=== PATIENT | male | born 1965 | race Caucasian/White ===

== ENCOUNTER 2021-06-05 17:34 | Inpatient (IN) ==
--- NOTE | 2021-06-05 17:37 | Emergency Department Note ---
HPI General Chief complaint: Cold/Flu Symptoms Stated complaint: fever, runny nose Time Seen by Provider: 06/05/21 17:37 Source: patient Mode of arrival: EMS Limitations: no limitations History of Present Illness HPI Narrative: 56-year-old male with past medical history of bilateral Charcot foot presenting with low-grade fever for the last 10 days. Patient also endorses rhinorrhea, mild shortness of breath, and diarrhea. Patient is concerned for infection in his foot. He follows with Dr. Yu of podiatry but has not been seen recently for his follow-up appointments. Not currently on antibiotics. Denies cough, chest pain, abdominal pain, vomiting, or headache. Patient states he has been trying to do dressing changes on his feet but feels like they are getting worse. He denies history of diabetes. Related Data Home Medications Medication Instructions Recorded Confirmed losartan 100 mg tablet 100 mg PO 1600 04/03/18 06/05/21 lorazepam 1 mg tablet 2 mg PO DAILY 07/23/18 06/05/21 bisoprolol-hydrochlorothiazide 1 tab PO BID 06/05/21 06/05/21 Allergies Allergy/AdvReac Type Severity Reaction Status Date / Time No Known Drug Allergies Allergy Verified 06/05/21 17:38 Review of Systems ROS ROS Narrative: Narrative: Constitutional: Reports fever and chills ENT ED: Denies throat pain Cardiovascular: Denies chest pain Respiratory: Denies shortness of breath or cough Gastrointestinal: Reports diarrhea; Denies abdominal pain, nausea, vomiting or melena Genitourinary: Denies dysuria or frequency Musculoskeletal: Denies back pain Integumentary: Denies rash Neurological: Denies headache, weakness or numbness Psychiatric: Denies anxiety Endocrine: Denies fatigue Hematological/Lymphatic: Denies easy bleeding PFSH Narrative Patient History Narrative: Narrative: Medical/Surgical/Family History All Active Problems (Updated 06/05/21 @ 21:01 by Chris Russell MD) Blister of left great toe (Acute) Cellulitis (Acute) Foot ulcer (Acute) Low back strain (Acute) Cellulitis of foot, left (Acute) Medical History (Updated 06/05/21 @ 21:01 by Chris Russell MD) Blister of left great toe Social History Smoking Status: Former smoker Alcohol Intake Frequency: a few times a week Substance Use: marijuana Exam Narrative Narrative: Narrative: General Limitations: no limitations General appearance: Present alert and in no apparent distress Head Head: Present atraumatic and normocephalic Eye Eye: Present normal appearance, PERRL and EOMI; Absent scleral icterus or conjunctival injection ENT ENT: Present mucous membranes moist Neck Neck: Present normal inspection, full ROM and trachea midline Chest Chest: Present symmetric chest wall rise Respiratory Respiratory: Present normal lung sounds bilaterally; Absent respiratory distress, wheezes, stridor, accessory muscle use or prolonged expiratory phase Cardiovascular Cardiovascular: Present regular rate and normal rhythm; Absent systolic murmur or diastolic murmur Adbominal Abdominal: Present soft; Absent distention, tenderness, guarding, rebound or rigidity Expanded Lower Extremity Foot/toe: Present other (Left foot with a large ulcer on the medial foot with purulence, drainage, and surrounding cellulitis. Wound is foul-smelling. He does have range of motion of the foot. Patient endorses decreased sensation in the foot but has a 1+ DP pulse and normal cap refill); Absent normal inspection (Right foot with a dorsal ulcer with mild purulent drainage but no surrounding cellulitis. Neurovascularly intact.) Neurological Neurological: Present alert and oriented X3 Psychiatric Psychiatric: Present normal affect and normal mood Skin Skin: Present warm (WNL) and dry Course Consultations Consultation #1: Dr. Donald, hospitalist Time: 20:00 Consultation #2: Dr. Yu, podiatry. Unable to reach and he did not call back Time: 20:30 Vital Signs Vital signs: Vital Signs Temperature 99 F 06/05/21 17:35 Pulse Rate 105 H 06/05/21 17:35 Respiratory Rate 22 06/05/21 17:35 Blood Pressure 139/93 06/05/21 17:35 Pulse Oximetry (%) 95 06/05/21 17:35 Temperature 99.6 F H 06/05/21 23:05 Pulse Rate 75 06/05/21 23:05 Respiratory Rate 20 06/05/21 23:05 Blood Pressure 118/105 06/05/21 23:05 Pulse Oximetry (%) 97 06/05/21 23:05 MDM MDM Narrative Medical decision making narrative: 56-year-old male presenting with fever and concern for foot infection. His left foot appears acutely infected with foul-smelling drainage and surrounding cellulitis. His right foot appears to have a chronic infection but is not as concerning as his left foot. Vital signs are stable. Given these findings, will obtain labs including lactate and blood cultures, x-rays, and consult his sheet rock taper helper. Labs notable for hyponatremia to 118. Normal saline bolus ordered. Lactate is normal. X-rays do not show any significant evidence of osteomyelitis, per my interpretation. IV vancomycin ordered. Patient endorsed to Dr. Donald who will admit. Attempted to reach patient's sheet rock taper helper, Dr. Yu, but we were unable to reach him from the ED. Lab Data Lab results reviewed: Yes I reviewed the patient's lab results. Result diagrams: 06/05/21 18:15 06/05/21 18:15 Labs: Lab Results 06/05/21 06/05/21 06/05/21 Range/Units 18:15 18:15 18:15 WBC 11.5 H (4.5-11.0) K/mcL RBC 4.15 L (4.63-6.08) M/mcL Hgb 13.4 L (13.7-17.5) g/dL Hct 37.6 L (40.1-51.0) % MCV 90.6 (80.0-100.0) fL MCH 32.3 (26.0-34.0) pg MCHC 35.6 (31.0-36.0) g/dL RDW 11.9 (11.5-14.5) % Plt Count 313 (140-440) K/mcL MPV 9.8 (7.4-10.4) fL Neut % (Auto) 80.9 H (38.0-78.0) % Lymph % (Auto) 5.8 L (15.5-49.0) % [place] % (Auto) 12.7 H (1.0-12.0) % Eos % (Auto) 0.3 (0.0-7.0) % Baso % (Auto) 0.3 (0.0-2.0) % Lymph # (Auto) 0.67 L (1.50-4.80) K/mcL [place] # (Auto) 1.46 H (0.10-0.90) K/mcL Eos # (Auto) 0.04 (0.00-0.70) K/mcL Baso # (Auto) 0.03 (0.00-0.30) K/mcL Absolute Neutrophils 9.30 H (1.80-8.00) K/mcL ESR 91 H (0-20) mm/hr VBG Lactic Acid 1.7 (0.5-2.0) mmol/L Sodium 118 L* (133-145) mmol/L Potassium 3.2 L (3.3-5.1) mmol/L Chloride 84 L (96-108) mmol/L Carbon Dioxide 18 L (22-30) mmol/L Anion Gap 16.0 (8.0-16.0) BUN 25 H (6-20) mg/dL Creatinine 1.2 (0.7-1.2) mg/dL GFR Calculation 68 Glucose 117 H (70-105) mg/dL Osmolality (280-300) mOSM/kg Uric Acid (2.5-8.0) mg/dL Calcium 8.5 L (8.6-10.4) mg/dL Total Bilirubin 1.2 H (0.1-1.0) mg/dL AST 37 (<40) U/L ALT 23 (<40) U/L Alkaline Phosphatase 144 H (39-117) U/L C-Reactive Protein 21.40 H (0.03-0.80) mg/dL Total Protein 7.6 (5.9-8.4) gm/dL Albumin 3.1 L (3.2-5.2) gm/dL Globulin 4.5 H (2.2-3.7) gm/dL Albumin/Globulin Ratio 0.7 L (1.0-2.3) Urine Osmolality (80-1000) mOSM/kg Ur Random Sodium mmol/L 06/05/21 06/05/21 06/05/21 Range/Units 19:15 20:30 20:30 WBC (4.5-11.0) K/mcL RBC (4.63-6.08) M/mcL Hgb (13.7-17.5) g/dL Hct (40.1-51.0) % MCV (80.0-100.0) fL MCH (26.0-34.0) pg MCHC (31.0-36.0) g/dL RDW (11.5-14.5) % Plt Count (140-440) K/mcL MPV (7.4-10.4) fL Neut % (Auto) (38.0-78.0) % Lymph % (Auto) (15.5-49.0) % Mohave % (Auto) (1.0-12.0) % Eos % (Auto) (0.0-7.0) % Baso % (Auto) (0.0-2.0) % Lymph # (Auto) (1.50-4.80) K/mcL Moh[place] # (Auto) (0.10-0.90) K/mcL Eos # (Auto) (0.00-0.70) K/mcL Baso # (Auto) (0.00-0.30) K/mcL Absolute Neutrophils (1.80-8.00) K/mcL ESR (0-20) mm/hr VBG Lactic Acid (0.5-2.0) mmol/L Sodium (133-145) mmol/L Potassium (3.3-5.1) mmol/L Chloride (96-108) mmol/L Carbon Dioxide (22-30) mmol/L Anion Gap (8.0-16.0) BUN (6-20) mg/dL Creatinine (0.7-1.2) mg/dL GFR Calculation Glucose (70-105) mg/dL Osmolality 268 L (280-300) mOSM/kg Uric Acid 5.9 (2.5-8.0) mg/dL Calcium (8.6-10.4) mg/dL Total Bilirubin (0.1-1.0) mg/dL AST (<40) U/L ALT (<40) U/L Alkaline Phosphatase (39-117) U/L C-Reactive Protein (0.03-0.80) mg/dL Total Protein (5.9-8.4) gm/dL Albumin (3.2-5.2) gm/dL Globulin (2.2-3.7) gm/dL Albumin/Globulin Ratio (1.0-2.3) Urine Osmolality 333 (80-1000) mOSM/kg Ur Random Sodium 10 mmol/L ED POC Tests ED POC Tests: ROMEO - Influenza A Negative ROMEO - Influenza B Negative ROMEO - SARS Antigen Negative Radiology Data Radiology results reviewed: Yes I reviewed the patient's radiology results. Radiology results narrative: XR bilateral feet: No significant areas of osteomyelitis noted, per my interpretation. Discharge Plan Patient/Caregiver Discharge Instructions Pt seen by BUSINESS INFO CONSULTANT/PA only: No Clinical Impression: Cellulitis of foot, left Patient Disposition: Xfer As Inpt ([facility]) Discharge Date/Time: 06/05/21 21:23
[2021-06-05 19:44] LABS: Basophils # (Auto) 0.03 K/mcL (0.00-0.30); Basophils % (Auto) 0.3 % (0.0-2.0); Eosinophils # (Auto) 0.04 K/mcL (0.00-0.70); Eosinophils % (Auto) 0.3 % (0.0-7.0); Hematocrit 37.6 % (40.1-51.0); Hemoglobin 13.4 g/dL (13.7-17.5); Lymphocytes # (Auto) 0.67 K/mcL (1.50-4.80); Lymphocytes % (Auto) 5.8 % (15.5-49.0); Mean Cell Volume 90.6 fL (80.0-100.0); Mean Corpuscular HGB Conc 35.6 g/dL (31.0-36.0); Mean Platelet Volume 9.8 fL (7.4-10.4); Monocytes # (Auto) 1.46 K/mcL (0.10-0.90); Monocytes % (Auto) 12.7 % (1.0-12.0); Neutrophils % (Auto) 80.9 % (38.0-78.0); Platelet Count 313 K/mcL (140-440); RBC 4.15 M/mcL (4.63-6.08); Red Cell Distribution Width 11.9 % (11.5-14.5); WBC 11.5 K/mcL (4.5-11.0)
[2021-06-05 19:48] LABS: ALT/SGPT 23 U/L (<40); AST/SGOT 37 U/L (<40); Albumin 3.1 gm/dL (3.2-5.2); Albumin/Globulin Ratio 0.7 (1.0-2.3); Alkaline Phosphatase 144 U/L (39-117); Bilirubin,Total 1.2 mg/dL (0.1-1.0); Blood Urea Nitrogen 25 mg/dL (6-20); Calcium 8.5 mg/dL (8.6-10.4); Carbon Dioxide 18 mmol/L (22-30); Chloride 84 mmol/L (96-108); Globulin 4.5 gm/dL (2.2-3.7); Glomerular Filtration Rate 68; Glucose 117 mg/dL (70-105)
[2021-06-05] MEDS ORDERED: DICYCLOMINE 20 MG TABLET PO ONE (19:56)
[2021-06-05] MEDS ORDERED: 0.9 % SODIUM CHLORIDE 1,000 ML IV ONE (20:08)
[2021-06-05] MEDS ORDERED: VANCOMYCIN 1,500 MG in 0.9 % SODIUM CHLORIDE 500 ML IV ONE (20:09)
--- NOTE | 2021-06-05 20:27 | Internal Med History&Physical ---
HPI History of Present Illness Patient information: Note initiated : 06/05/21 at 8:23 pm Service Date, if different from initiated Date: [] Patient: Naga Simeon 56 y/o M admitted on for fever, runny nose. Chief Complaint: [] History of present illness: Mr. Simeon is a 56 year old M Presents to ED with 10-day history of fevers as well as a mild occasional cough, minimal shortness of breath and diarrhea that started today. Patient feels lik e he is developing a worsening infection of his left foot after one of his friends looked at his foot today and thought it was getting worse. He has seen Dr. Yu for this outpatient. Work-up in the ED included labs showed a mild leukocytosis. He had hyponatremia of 118 and is on hydrochlorothiazide. But pt also drinks about a gallon of H2o a day, of note he is 100kg. Potassium little low acute kidney injury noted. Lactate okay. Left foot x-ray done. ESR pending. Exam in the ED of the foot malodorous. Dr. Yu will be consulted from ED. Review of Systems: Pertinent positives as above. Denies headache/nausea/vomiting/chest or abdominal pain/cough. Remaining 10 point review of system reviewed negative PFSH PFSH All Active Problems Blister of left great toe (Acute) Cellulitis (Acute) Foot ulcer (Acute) Low back strain (Acute) Medical History Blister of left great toe Social History (Updated 04/01/18 @ 09:27 by ANKUR Hernandes) alcohol intake frequency: a few times a week substance use type: marijuana MEDS/ALLERGIES Home Medications and Allergies Home Medications Medication Instructions Recorded Confirmed Type losartan 100 mg tablet 150 tab PO QDAY 04/03/18 01/14/21 History lorazepam 1 mg tablet 1 mg PO PRN PRN 07/23/18 01/14/21 History bisoprolol-hydrochlorothiazide 1 tab PO BID 06/05/21 06/05/21 History Allergies Allergy/AdvReac Type Severity Reaction Status Date / Time No Known Drug Allergies Allergy Verified 06/05/21 17:38 EXAM Constitutional Vitals: Temp Pulse Resp BP Pulse Ox 99 F 86 22 126/84 97 06/05/21 17:35 06/05/21 20:01 06/05/21 17:35 06/05/21 20:01 06/05/21 20:01 Exam: General: Alert, Awake, No acute Distress Eyes/N/T: EOMI, PERRL, dry MM Head/Neck: neck supple, normocephalic atraumatic CV: RRR, 1/6 SM, normal s1/s2 Pulm: Clear b/l, no wheezing/rhonchi/rales Abd: soft, nontender, +BS x4 Ext: no clubbing/cyanosis/edema, b/l feet with severe charcot deformities and b/l ulcerations with left foot ulcer appearing infected. Neuro: Alert, no focal deficits, moves all extremities, CN 2-12 grossly intact, symmetrical strength b/l upper/lower, sensations intact b/l upper/lower Skin: warm/dry DATA Data Completed and Pending Labs: Labs from last 24 hours 06/05/21 06/05/21 06/05/21 18:15 18:15 18:15 WBC 11.5 H RBC 4.15 L Hgb 13.4 L Hct 37.6 L MCV 90.6 MCH 32.3 MCHC 35.6 RDW 11.9 Plt Count 313 MPV 9.8 Neut % (Auto) 80.9 H Lymph % (Auto) 5.8 L Spink % (Auto) 12.7 H Eos % (Auto) 0.3 Baso % (Auto) 0.3 Lymph # (Auto) 0.67 L Spink # (Auto) 1.46 H Eos # (Auto) 0.04 Baso # (Auto) 0.03 Absolute Neutrophils 9.30 H ESR Pending VBG Lactic Acid 1.7 Sodium 118 L* Potassium 3.2 L Chloride 84 L Carbon Dioxide 18 L Anion Gap 16.0 BUN 25 H Creatinine 1.2 GFR Calculation 68 Glucose 117 H Calcium 8.5 L Total Bilirubin 1.2 H AST 37 ALT 23 Alkaline Phosphatase 144 H C-Reactive Protein 21.40 H Total Protein 7.6 Albumin 3.1 L Globulin 4.5 H Albumin/Globulin Ratio 0.7 L A/P Narrative A/P Narrative: A: *Left foot infected ulcer: *SIRS: *b/l Severe Charcot foot deformities: Follows with Dr. uY *Hyponatremia: 118. pt on HCTZ but also drinking about a gallon of H2o/day *KATE: *HTN: On BB/ARB/HCTZ *Anxiety: P: -IV abx, pending BC/WC, MRSA screen -Podiatry consulted -ESR pending -Continue home BB/ARB, stop HCTZ -Hyponatremia work-up - -PT/OT -ppx: Lovenox DNR Time Spent With Patient Time: Total time spent is greater than 50% in coordination of care (as documented) at patient's floor/unit and/or counseling patient:
[2021-06-05 20:35] LABS: Erythrocyte Sedimentation Rate 91 mm/hr (0-20)
[2021-06-05 21:15] LABS: Uric Acid 5.9 mg/dL (2.5-8.0)
[2021-06-05] MEDS ORDERED: POTASSIUM CHLORIDE 40 MEQ in DEXTROSE 5% IN WATER 500 ML IV PRN (21:32)
[2021-06-05] MEDS ORDERED: POTASSIUM CHLORIDE 20 MEQ TABLET PO PRN ×2 (21:32)
[2021-06-05] MEDS ORDERED: VANCOMYCIN PER PHARMACY IV ONE (21:32)
[2021-06-05] MEDS ORDERED: IPRATROPIUM/ALBUTEROL 3 ML AMPUL.NEB NEB PRN (21:32)
[2021-06-05] MEDS ORDERED: cefTRIAXone 2 GM VIAL ONE (22:10)
[2021-06-05] MEDS: cefTRIAXone 2 GM in DEXTROSE 5% IN WATER 50 ML IV SCH (22:53)
[2021-06-05] MEDS: 0.9 % SODIUM CHLORIDE 10 ML SYRINGE IV SCH (23:35)
[2021-06-06 00:47] LABS: Blood Urea Nitrogen 23 mg/dL (6-20); Calcium 7.8 mg/dL (8.6-10.4); Carbon Dioxide 19 mmol/L (22-30); Chloride 86 mmol/L (96-108); Glomerular Filtration Rate 75; Glucose 119 mg/dL (70-105)
[2021-06-06] MEDS ORDERED: SODIUM CHLORIDE 3 % 500 ML IV SCH (01:00)
[2021-06-06] MEDS ORDERED: POTASSIUM CHLORIDE 20 MEQ/10 ML VIAL IV ONE (01:00)
[2021-06-06] MEDS ORDERED: SODIUM CHLORIDE 3 % 500 ML IV ONE (01:02)
--- NOTE | 2021-06-06 05:19 | XRay Report ---
CLINICAL INFORMATION: Bilateral Charcot feet. Infection COMPARISON: Right foot 03/29/2020 and left foot 06/21/2019 FINDINGS: Right foot: There is marked osteolysis of the nearly the entire talus proximal navicular, cuboid and the anterior one half of the calcaneus. There is also osteolytic destruction of the lateral malleolus. The distal tibia and fibula are dislocated medially no longer articulating with the talus. There is complete collapse of the transverse and longitudinal plantar arch resulting in severe pes planus. Marked diffuse soft tissue swelling appreciated. The degree of osteolysis has progressed since the comparison exam 2019-particularly the calcaneus Left foot: All of the cuneiforms are subtotally destroyed with 17 mm remnant in the dorsal soft tissues superior to the first MTT region. Surgical fusion bilateral plates and screws between the first, second and third metatarsals and the talus is seen as before. There is no evidence of osseous fusion across the joint. There is complete reversal of the plantar arch resulting in a rocker-bottom configuration as previously seen. The cuboid is subtotally resorbed and partially fused to the calcaneus. Severe metatarsus abductus deformity is appreciated. IMPRESSION: 1. Right foot: Subtotal osteolysis of the talus and severe osteolysis of the proximal navicular cuboid and anterior one half of the calcaneus all progressed since the comparison x-ray of 03/29/2020. The distal tibia and fibula are dislocated in a medial direction. Review soft tissue swelling noted. The possibility of a osteomyelitis and cellulitis should be entertained. Complete collapse of the plantar arch 2. Left foot: Plate and screws providing arthrodesis across the first second and third proximal metatarsal and the talus. The cuneiforms are subtotally destroyed with cuneiform remnant placed in the dorsal soft tissues. There is no evidence of bony fusion across the joints. Complete collapse of the plantar arch resulting rocker-bottom foot. There is also partial fusion of the cuboid to the calcaneus. Interpreted and Authenticated by: Zhao Hastings 06/06/21
[2021-06-06] MEDS: 0.9 % SODIUM CHLORIDE 10 ML SYRINGE IV SCH ×3 (07:02→21:09)
--- NOTE | 2021-06-06 07:38 | Internal Med Progress Note ---
SUBJECTIVE Subjective Patient information: Note initiated : 06/06/21 at 7:36 am Service Date, if different from initiated Date: [] Patient: Naga Simeon 56 y/o M admitted on 06/05/21 for fever, runny nose. Chief Complaint: [] Interval history: History of present illness: Mr. Simeon is a 56 year old M Presents to ED with 10-day history of fevers as well as a mild occasional cough, minimal shortness of breath and diarrhea that started today. Patient feels like he is developing a worsening infection of his left foot after one of his friends looked at his foot today and thought it was getting worse. He has seen Dr. Yu for this outpatient. Work-up in the ED included labs showed a mild leukocytosis. He had hyponatremia of 118 and is on hydrochlorothiazide. But pt also drinks about a gallon of H2o a day, of note he is 100kg. Potassium little low acute kidney injury noted. Lactate okay. Left foot x-ray done. ESR pending. Exam in the ED of the foot malodorous. Dr. Yu will be consulted from ED. 06/05 Afebrile overnight. T-max 99.7 last night. No new complaints. Awaiting follow-up labs. Gram-positive cocci in clusters in both bottles of 1 set. Echo pending. MRI of the foot ordered and podiatry consulted. Review of Systems: denies headache/fever/chills/nausea/vomiting/chest or abdominal pain/cough/dyspnea/diarrhea. Otherwise see above. Constitutional Vitals: Vital Signs Temp Pulse Resp BP Pulse Ox 98.5 F 74 20 132/80 100 06/06/21 04:02 06/06/21 04:02 06/06/21 04:02 06/06/21 04:02 06/06/21 04:02 Period Temp Pulse Resp BP Sys/Hurtado Pulse Ox Last 24 Hr 98.5 F-99.7 F 74-105 20-24 109-167/59-123 95-100 Intake and Output 06/05/21 06/06/21 06/06/21 21:59 05:59 13:59 Intake Total 756 2178 494 Output Total 1200 Balance 756 978 494 Weight 106.821 kg Intake & Output: Intake & Output 06/05/21 06/06/21 06/06/21 21:59 05:59 13:59 Intake Total 756 2178 494 Output Total 1200 Balance 756 978 494 Weight 106.821 kg Intake: IV 756 978 494 Sodium Chloride 0.9% 1,000 ml @ 500 450 Wide Open IV BOLUS ONE Rx#: [id number] Potassium Chloride 40 Meq In 26 494 Dextrose 5% in Water 500 ml @ 130 mls/hr IV UD PRN Rx#: [id number] Sodium Chloride 3% 500 ml @ 50 208 0 mls/hr IV ONCE ZENON Rx#: [id number] Vancomycin 1,500 mg In Sodium 256 244 Chloride 0.9% 500 ml @ 333.3 mls/hr IV ONCE ONE Rx#: [id number] Rocephin 2 gm In Dextrose 5% in 50 Water 50 ml @ 100 mls/hr IV DAILY ZENON Rx#:[id number] Oral 1200 Output: Void Amount 1200 Other: Urine Appearance Clear Urine Color Bright Yellow Exam: General: Alert, Awake, No acute Distress, obese Eyes/N/T: EOMI, Head/Neck: neck supple, CV: RRR, 1/6 SM, Pulm: Clear b/l, no wheezing/rhonchi/rales Abd: soft, nontender, +BS x4 Ext: no clubbing/cyanosis/edema, b/l feet with severe charcot deformities and b/l ulcerations with left foot ulcer appearing infected. Neuro: Alert, no focal deficits, moves all extremities, Skin: warm/dry OBJ DATA Labs CBC & Chem 7: 06/05/21 18:15 06/05/21 23:25 Labs: Abnormal Lab Results 06/05/21 06/05/21 06/05/21 23:25 19:15 18:15 WBC RBC Hgb Hct Neut % (Auto) Lymph % (Auto) Stephenson % (Auto) Lymph # (Auto) Stephenson # (Auto) Absolute Neutrophils ESR Sodium 117 L* 118 L* Potassium 2.9 L* 3.2 L Chloride 86 L 84 L Carbon Dioxide 19 L 18 L BUN 23 H 25 H Glucose 119 H 117 H Osmolality 268 L Calcium 7.8 L 8.5 L Total Bilirubin 1.2 H Alkaline Phosphatase 144 H C-Reactive Protein 21.40 H Albumin 3.1 L Globulin 4.5 H Albumin/Globulin Ratio 0.7 L 06/05/21 18:15 WBC 11.5 H RBC 4.15 L Hgb 13.4 L Hct 37.6 L Neut % (Auto) 80.9 H Lymph % (Auto) 5.8 L Stephenson % (Auto) 12.7 H Lymph # (Auto) 0.67 L Stephenson # (Auto) 1.46 H Absolute Neutrophils 9.30 H ESR 91 H Sodium Potassium Chloride Carbon Dioxide BUN Glucose Osmolality Calcium Total Bilirubin Alkaline Phosphatase C-Reactive Protein Albumin Globulin Albumin/Globulin Ratio Meds: Medications Acetaminophen (Acetaminophen 325 Mg Tablet) 650 mg PO Q6HP PRN; Protocol PRN Reason: Per Pain Protocol/Fever > 101 Albuterol/Ipratropium (Ipratropium/Albuterol 3 Ml Ampul.Neb) 3 ml NEB Q4HP PRN PRN Reason: Shortness Of Breath Bisoprolol Fumarate (Bisoprolol 5 Mg Tablet) 5 mg PO DAILY ZENON Enoxaparin Sodium (Enoxaparin 40 Mg/0.4 Ml Syringe) 40 mg SQ DAILY ZENON Potassium Chloride 40 meq/ (Dextrose) 520 mls @ 130 mls/hr IV UD PRN PRN Reason: Potassium < 3 Last Infusion: 06/06/21 06:17 Dose: Infused Documented by: Magnesium Sulfate (Magnesium Sulfate) 2 gm in 50 mls @ 50 mls/hr IV UD PRN PRN Reason: Magnesium </= 1.6 Ceftriaxone Sodium 2 gm/ (Dextrose) 50 mls @ 100 mls/hr IV DAILY [facility]; Protocol Last Infusion: 06/05/21 23:41 Dose: Infused Documented by: Vancomycin HCl 1,500 mg/ (Sodium Chloride) 500 mls @ 333.3 mls/hr IV Q12H ZENON Sodium Chloride (Sodium Chloride 3%) 500 mls @ 50 mls/hr IV ONCE ZENON Stop: 06/06/21 04:59 Last Infusion: 06/06/21 06:56 Dose: 50 mls/hr Documented by: Lorazepam (Lorazepam 1 Mg Tablet) 2 mg PO DAILY ZENON Losartan Potassium (Losartan 50 Mg Tablet) 100 mg PO DAILY ZENON Ondansetron HCl (Ondansetron 4 Mg/2 Ml Vial) 4 mg IV Q4HP PRN PRN Reason: Nausea And Vomiting Potassium Chloride (Potassium Chloride 20 Meq Tablet) 40 meq PO UD PRN PRN Reason: Potssium is 3-3.5 Last Admin: 06/05/21 22:26 Dose: 40 meq Documented by: Potassium Chloride (Potassium Chloride 20 Meq Tablet) 40 meq PO UD PRN PRN Reason: Potassium < 3 Sodium Chloride (0.9 % Sodium Chloride 10 Ml Syringe) 10 ml IV Q8 ZENON Last Admin: 06/06/21 07:02 Dose: Not Given Documented by: Vancomycin HCl (Vancomycin Per Pharmacy) 1 order IV ONCE ONE; Protocol Stop: 06/05/21 21:33 Last Admin: 06/05/21 22:23 Dose: Not Given Documented by: A/P Narrative A/P Narrative: A: *Left foot infected ulcer: *Bacteremia(GPC): *SIRS: *b/l Severe Charcot foot deformities: Follows with Dr. Yu *Hyponatremia: 118 on admit. pt on HCTZ and volume depletion *KATE: *HTN: On BB/ARB/HCTZ *Anxiety: *Obese: P: -IV abx - deescalate later today, pending BC/WC, MRSA screen neg -Podiatry consulted -MRI foot pending -echo pending -Continue home BB/ARB, stop HCTZ - -PT/OT -ppx: heparin DNR Time Spent With Patient Time: Total time spent is greater than 50% in coordination of care (as documented) at patient's floor/unit and/or counseling patient: QUALITY VTE Deep Vein Thrombosis/Pulmonary Embolism Present on Admission: No
[2021-06-06 08:15] LABS: POC Blood Urea Nitrogen 14 mg/dL (6-20); POC CO2 19 mmol/L (22-30); POC Calcium, Ionized 1.16 mmEq/L (1.16-1.32); POC Chloride 94 mEq/L (96-108); POC Creatinine 0.5 mg/dL (0.6-1.2); POC Glucose, Random 108 mg/dL (70-105); POC Hematocrit 33 % (41-55); POC Potassium 3.4 mEql/L (3.3-5.1); POC Sodium 126 mEq/L (133-145)
[2021-06-06] MEDS ORDERED: VANCOMYCIN PER PHARMACY IV SCH (08:45)
[2021-06-06] MEDS ORDERED: ENOXAPARIN 40 MG/0.4 ML SYRINGE SQ SCH (09:00)
[2021-06-06] MEDS ORDERED: LOSARTAN 50 MG TABLET PO SCH (09:00)
[2021-06-06] MEDS ORDERED: BISOPROLOL 5 MG TABLET PO SCH (09:00)
[2021-06-06 09:30] LABS: ALT/SGPT 18 U/L (<40); AST/SGOT 27 U/L (<40); Albumin 2.4 gm/dL (3.2-5.2); Albumin/Globulin Ratio 0.6 (1.0-2.3); Alkaline Phosphatase 93 U/L (39-117); Bilirubin,Direct 0.6 mg/dL (<0.3); Bilirubin,Total 0.9 mg/dL (0.1-1.0); Blood Urea Nitrogen 14 mg/dL (6-20); Calcium 8.1 mg/dL (8.6-10.4); Carbon Dioxide 19 mmol/L (22-30); Chloride 92 mmol/L (96-108); Globulin 3.9 gm/dL (2.2-3.7); Glomerular Filtration Rate 113; Glucose 109 mg/dL (70-105); Lactate Dehydrogenase 144 U/L (135-225); Triglycerides 102 mg/dL (<150); Uric Acid 4.4 mg/dL (2.5-8.0)
--- NOTE | 2021-06-06 09:40 | Orthopedic Consult Note ---
HPI Data of Consult Consult date: 06/06/21 Requesting physician: Jefe Donald Primary Care Provider: ANKUR Eugene Consult Narrative Patient Information: Note initiated : 06/06/21 at 9:36 am Service Date, if different from initiated Date: [] Patient: Naga Simeon 56 y/o M admitted on 06/05/21 for fever, runny nose. Chief Complaint: [Left foot infection] Naga is a longstanding history of left foot infection following Charcot neuroarthropathy. He is nondiabetic and does have severe idiopathic neuropathy bilateral lower extremities. He has had chronic Charcot deformity with bouts of recurrent infection bilateral lower extremities. Underwent surgical stabilization procedure in 2019 on the left foot. He recently became feverish with shortness of breath and cough. Decided go to the hospital yesterday when the foot became acutely red hot and swollen. It has not been this infected in the past. He experiences minimal pain or sensation of bilateral lower extremities due to his neuropathy. He is concerned about having the procedure done as he lives by himself and has a brother coming to town in August when he was planning on having an amputation procedure of the right lower extremity. Chief complaint: Left foot infection cc:: CC: Jefe Donald [facility] All Active Problems (Updated 06/05/21 @ 21:01 by Chris Russell MD) Blister of left great toe (Acute) Cellulitis (Acute) Foot ulcer (Acute) Low back strain (Acute) Cellulitis of foot, left (Acute) Medical History (Updated 06/05/21 @ 21:01 by Chris Russell MD) Blister of left great toe Social History (Updated 04/01/18 @ 09:27 by ANKUR Hernandes) alcohol intake frequency: a few times a week substance use type: marijuana MEDS/ALLERGIES Home Medications and Allergies Home Medications Medication Instructions Recorded Confirmed Type losartan 100 mg tablet 100 mg PO 1600 04/03/18 06/05/21 History lorazepam 1 mg tablet 2 mg PO DAILY 07/23/18 06/05/21 History bisoprolol-hydrochlorothiazide 1 tab PO BID 06/05/21 06/05/21 History Allergies Allergy/AdvReac Type Severity Reaction Status Date / Time No Known Drug Allergies Allergy Verified 06/05/21 17:38 Physical Examination Narrative Narrative: Narrative: Ankle & Foot left: Ankle appearance: swelling and erythema Foot appearance: swelling, erythema and other (Malodorous open wound probes deeply with general foot cellulitis tracking to ankle region) A/P Narrative A/P Narrative: Patient's foot is grossly unstable and has resisted limb salvage procedures with Charcot restraint orthotic walker immobilization or chronic period of time. He is aware of the necessity of a [id number] amputation to eliminate the source of infection and to allow for stable prosthesis. Continue IV antibiotic therapy Recommendation for consultation with surgeon for below the knee amputation of the left side as discussed with patient. Time Spent With Patient Time: Total time spent is greater than 50% in coordination of care (as documented) at patient's floor/unit and/or counseling patient:
[2021-06-06] MEDS ORDERED: DEXTROSE 5% IN WATER 500 ML IV SCH (09:45)
[2021-06-06 10:05] LABS: Hematocrit 32.1 % (40.1-51.0); Hemoglobin 11.6 g/dL (13.7-17.5); Mean Cell Volume 90.9 fL (80.0-100.0); Mean Corpuscular HGB Conc 36.1 g/dL (31.0-36.0); Mean Platelet Volume 9.5 fL (7.4-10.4); Platelet Count 215 K/mcL (140-440); RBC 3.53 M/mcL (4.63-6.08); Red Cell Distribution Width 12.2 % (11.5-14.5); WBC 6.5 K/mcL (4.5-11.0)
[2021-06-06] MEDS: LORazepam 1 MG TABLET PO SCH ×3 (11:15→21:02)
[2021-06-06] MEDS: HEPARIN 5,000 UNIT/ML VIAL SQ SCH ×2 (11:23→21:08)
[2021-06-06] MEDS: VANCOMYCIN 1,500 MG in 0.9 % SODIUM CHLORIDE 500 ML IV SCH ×2 (11:28→21:12)
[2021-06-06 13:43] LABS: Lymphocytes % 9 % (15-49); Monocytes % (Manual) 5 % (1-12); Nucleated Red Blood Cells 1 % (0-0); Platelet Estimate NORMAL (Normal); RBC Morphology NORMAL (Normal); Segmented Neutrophils % 86 % (38-78)
[2021-06-06 14:32] LABS: POC Blood Urea Nitrogen 13 mg/dL (6-20); POC CO2 22 mmol/L (22-30); POC Calcium, Ionized 1.18 mmEq/L (1.16-1.32); POC Chloride 94 mEq/L (96-108); POC Creatinine 0.5 mg/dL (0.6-1.2); POC Glucose, Random 113 mg/dL (70-105); POC Hematocrit 36 % (41-55); POC Potassium 3.4 mEql/L (3.3-5.1); POC Sodium 126 mEq/L (133-145)
[2021-06-06] MEDS: cefTRIAXone 2 GM in DEXTROSE 5% IN WATER 50 ML IV SCH (15:42)
[2021-06-06] MEDS: metroNIDAZOLE 500 MG TABLET PO SCH ×2 (16:38→21:02)
[2021-06-06] MEDS: MAGNESIUM SULFATE 2 GM/50 ML BAG IV PRN (16:39)
[2021-06-06] MEDS ORDERED: SODIUM CHLORIDE 3 % 100 ML IV ONE (19:45)
[2021-06-06] MEDS ORDERED: BISOPROLOL 5 MG TABLET PO ONE (19:54)
[2021-06-06] MEDS: ACETAMINOPHEN 325 MG TABLET PO PRN (20:07)
[2021-06-07] MEDS: metroNIDAZOLE 500 MG TABLET PO SCH ×3 (05:24→20:57)
--- NOTE | 2021-06-07 07:48 | Internal Med Progress Note ---
SUBJECTIVE Subjective Patient information: Note initiated : 06/07/21 at 7:43 am Service Date, if different from initiated Date: [] Patient: Naga Simeon 56 y/o M admitted on 06/05/21 for fever, runny nose. Chief Complaint: [] Interval history: History of present illness: Mr. Simeon is a 56 year old M Presents to ED with 10-day history of fevers as well as a mild occasional cough, minimal shortness of breath and diarrhea that started today. Patient feels like he is developing a worsening infection of his left foot after one of his friends looked at his foot today and thought it was getting worse. He has seen Dr. Yu for this outpatient. Work-up in the ED included labs showed a mild leukocytosis. He had hyponatremia of 118 and is on hydrochlorothiazide. But pt also drinks about a gallon of H2o a day, of note he is 100kg. Potassium little low acute kidney injury noted. Lactate okay. Left foot x-ray done. ESR pending. Exam in the ED of the foot malodorous. Dr. Yu will be consulted from ED. 06/05 Afebrile overnight. T-max 99.7 last night. No new complaints. Awaiting follow-up labs. Gram-positive cocci in clusters in both bottles of 1 set. Echo pending. MRI of the foot ordered and podiatry consulted. 2/ Patient doing well. Sodium improving. No overnight events. No new complaints. N.p.o. Review of Systems: denies headache/fever/chills/nausea/vomiting/chest or abdominal pain/cough/dyspnea/diarrhea. Otherwise see above. Constitutional Vitals: Vital Signs Temp Pulse Resp BP Pulse Ox 97.0 F 71 14 129/78 100 06/07/21 03:38 06/07/21 03:38 06/07/21 03:38 06/07/21 03:38 06/07/21 03:38 Period Temp Pulse Resp BP Sys/Hurtado Pulse Ox Last 24 Hr 97.0 F-99.7 F 71-84 14-20 126-157/49-91 99-100 Intake and Output 06/06/21 06/07/21 06/07/21 21:59 05:59 13:59 Intake Total 1780 1400 Output Total 650 1025 Balance 1130 375 Weight 106.776 kg Intake & Output: Intake & Output 06/06/21 06/07/21 06/07/21 21:59 05:59 13:59 Intake Total 1780 1400 Output Total 650 1025 Balance 1130 375 Weight 106.776 kg Intake: IV 600 600 Sodium Chloride 3% 100 ml @ 25 0 100 mls/hr IV ONCE ONE Rx#: [id number] Vancomycin 1,500 mg In Sodium 500 500 Chloride 0.9% 500 ml @ 333.3 mls/hr IV Q12H ZENON Rx#: [id number] Rocephin 2 gm In Dextrose 5% in 50 Water 50 ml @ 100 mls/hr IV DAILY ZENON Rx#:[id number] Oral 1180 800 Output: Void Amount 650 1025 Other: Meal Dinner Percent of Meal Consumed 50% Urine Appearance Clear Clear Urine Color Bright Yellow Bright Yellow Urine Odor Strong Exam: General: Alert, Awake, No acute Distress, obese Eyes/N/T: EOMI, Head/Neck: neck supple, CV: RRR, 1/6 SM, Pulm: Clear b/l, no wheezing/rhonchi/rales Abd: soft, nontender, +BS x4 Ext: no clubbing/cyanosis/edema, b/l feet with severe charcot deformities and b/l ulcerations with left foot ulcer appearing infected. Neuro: Alert, no focal deficits, moves all extremities, Skin: warm/dry OBJ DATA Labs CBC & Chem 7: 06/07/21 05:12 06/07/21 05:12 Labs: Abnormal Lab Results 06/06/21 06/06/21 06/06/21 18:02 14:24 08:00 WBC RBC Hgb Hct POC Hct 36 L 33 L MCHC Neut % (Auto) Lymph % (Auto) [place] % (Auto) Lymph # (Auto) [place] # (Auto) Seg Neutrophils % Lymphocytes % Absolute Neutrophils Nucleated RBCs ESR POC Sodium 126 L 126 L Sodium 122 L 124 L Potassium POC Chloride 94 L 94 L Chloride 92 L Carbon Dioxide 19 L POC Total CO2 19 L BUN Creatinine 0.6 L POC Creatinine 0.5 L 0.5 L Glucose 109 H POC Glucose 113 H 108 H Osmolality Calcium 8.1 L Total Bilirubin Direct Bilirubin 0.6 H GGT 224 H Alkaline Phosphatase C-Reactive Protein Albumin 2.4 L Globulin 3.9 H Albumin/Globulin Ratio 0.6 L Procalcitonin 06/06/21 06/06/21 06/05/21 08:00 08:00 23:25 WBC RBC 3.53 L Hgb 11.6 L Hct 32.1 L POC Hct MCHC 36.1 H Neut % (Auto) Lymph % (Auto) [place] % (Auto) Lymph # (Auto) [place] # (Auto) Seg Neutrophils % 86 H Lymphocytes % 9 L Absolute Neutrophils Nucleated RBCs 1 H ESR POC Sodium Sodium 117 L* Potassium 2.9 L* POC Chloride Chloride 86 L Carbon Dioxide 19 L POC Total CO2 BUN 23 H Creatinine POC Creatinine Glucose 119 H POC Glucose Osmolality Calcium 7.8 L Total Bilirubin Direct Bilirubin GGT Alkaline Phosphatase C-Reactive Protein Albumin Globulin Albumin/Globulin Ratio Procalcitonin 2.04 H 06/05/21 06/05/21 06/05/21 19:15 18:15 18:15 WBC 11.5 H RBC 4.15 L Hgb 13.4 L Hct 37.6 L POC Hct MCHC Neut % (Auto) 80.9 H Lymph % (Auto) 5.8 L [place] % (Auto) 12.7 H Lymph # (Auto) 0.67 L [place] # (Auto) 1.46 H Seg Neutrophils % Lymphocytes % Absolute Neutrophils 9.30 H Nucleated RBCs ESR 91 H POC Sodium Sodium 118 L* Potassium 3.2 L POC Chloride Chloride 84 L Carbon Dioxide 18 L POC Total CO2 BUN 25 H Creatinine POC Creatinine Glucose 117 H POC Glucose Osmolality 268 L Calcium 8.5 L Total Bilirubin 1.2 H Direct Bilirubin GGT Alkaline Phosphatase 144 H C-Reactive Protein 21.40 H Albumin 3.1 L Globulin 4.5 H Albumin/Globulin Ratio 0.7 L Procalcitonin Meds: Medications Acetaminophen (Acetaminophen 325 Mg Tablet) 650 mg PO Q6HP PRN; Protocol PRN Reason: Per Pain Protocol/Fever > 101 Last Admin: 06/06/21 20:07 Dose: 650 mg Documented by: Albuterol/Ipratropium (Ipratropium/Albuterol 3 Ml Ampul.Neb) 3 ml NEB Q4HP PRN PRN Reason: Shortness Of Breath Bisoprolol Fumarate (Bisoprolol 5 Mg Tablet) 10 mg PO DAILY [facility] Heparin Sodium (Porcine) (Heparin 5,000 Unit/Ml Vial) 5,000 unit SQ Q12 [facility] Last Admin: 06/06/21 21:08 Dose: 5,000 unit Documented by: Potassium Chloride 40 meq/ (Dextrose) 520 mls @ 130 mls/hr IV UD PRN PRN Reason: Potassium < 3 Last Infusion: 06/06/21 06:17 Dose: Infused Documented by: Magnesium Sulfate (Magnesium Sulfate) 2 gm in 50 mls @ 50 mls/hr IV UD PRN PRN Reason: Magnesium </= 1.6 Last Infusion: 06/06/21 18:00 Dose: Infused Documented by: Ceftriaxone Sodium 2 gm/ (Dextrose) 50 mls @ 100 mls/hr IV DAILY [facility]; Protocol Last Infusion: 06/06/21 16:12 Dose: Infused Documented by: Vancomycin HCl 1,500 mg/ (Sodium Chloride) 500 mls @ 333.3 mls/hr IV Q12H [facility] Last Infusion: 06/06/21 23:03 Dose: Infused Documented by: Labetalol HCl (Labetalol 5 Mg/Ml Ml) 0 mg IV Q2HP PRN PRN Reason: Hypertension Lorazepam (Lorazepam 1 Mg Tablet) 2 mg PO HS [facility] Last Admin: 06/06/21 21:02 Dose: 2 mg Documented by: Losartan Potassium (Losartan 50 Mg Tablet) 100 mg PO 1600 ZENON Metronidazole (Metronidazole 500 Mg Tablet) 500 mg PO Q8 [facility]; Protocol Last Admin: 06/07/21 05:24 Dose: 500 mg Documented by: Ondansetron HCl (Ondansetron 4 Mg/2 Ml Vial) 4 mg IV Q4HP PRN PRN Reason: Nausea And Vomiting Potassium Chloride (Potassium Chloride 20 Meq Tablet) 40 meq PO UD PRN PRN Reason: Potssium is 3-3.5 Last Admin: 06/05/21 22:26 Dose: 40 meq Documented by: Potassium Chloride (Potassium Chloride 20 Meq Tablet) 40 meq PO UD PRN PRN Reason: Potassium < 3 Sodium Chloride (0.9 % Sodium Chloride 10 Ml Syringe) 10 ml IV Q8 [facility] Last Admin: 06/06/21 21:09 Dose: 10 ml Documented by: Vancomycin HCl (Vancomycin Per Pharmacy) 1 order IV UD [facility]; Protocol A/P Narrative A/P Narrative: A: *Left foot infected ulcer: needs BKA -WC with Enteroboacter & GPC *Bacteremia(GPC): source 2/2 above and probably osteo -no vegetations on TTE *SIRS: improved *b/l Severe Charcot foot deformities: Follows with Dr. Yu *Hyponatremia: 118 on admit. pt on HCTZ and volume depletion -Improving *Hypokalemia: *KATE: *HTN: On BB/ARB/HCTZ *Anxiety: *Obese: P: -Vanc/Rocephin/Flag, pending f/u serial BC/WC -Dr. Hagan for Left BKA -Continue home BB/ARB, stop HCTZ -PT/OT -ppx: heparin DNR Time Spent With Patient Time: Total time spent is greater than 50% in coordination of care (as documented) at patient's floor/unit and/or counseling patient: QUALITY VTE Deep Vein Thrombosis/Pulmonary Embolism Present on Admission: No
[2021-06-07] MEDS: HEPARIN 5,000 UNIT/ML VIAL SQ SCH ×2 (08:13→20:57)
[2021-06-07] MEDS: cefTRIAXone 2 GM in DEXTROSE 5% IN WATER 50 ML IV SCH (08:13)
[2021-06-07 08:18] LABS: Blood Urea Nitrogen 9 mg/dL (6-20); Calcium 8.5 mg/dL (8.6-10.4); Carbon Dioxide 19 mmol/L (22-30); Chloride 94 mmol/L (96-108); Glomerular Filtration Rate 134; Glucose 95 mg/dL (70-105)
[2021-06-07 08:25] LABS: Basophils # (Auto) 0.02 K/mcL (0.00-0.30); Basophils % (Auto) 0.4 % (0.0-2.0); Eosinophils # (Auto) 0.02 K/mcL (0.00-0.70); Eosinophils % (Auto) 0.4 % (0.0-7.0); Hematocrit 32.3 % (40.1-51.0); Hemoglobin 11.5 g/dL (13.7-17.5); Lymphocytes # (Auto) 0.56 K/mcL (1.50-4.80); Lymphocytes % (Auto) 11.4 % (15.5-49.0); Mean Corpuscular HGB Conc 35.6 g/dL (31.0-36.0); Mean Platelet Volume 9.7 fL (7.4-10.4); Monocytes # (Auto) 0.55 K/mcL (0.10-0.90); Monocytes % (Auto) 11.2 % (1.0-12.0); Neutrophils % (Auto) 76.6 % (38.0-78.0); Platelet Count 205 K/mcL (140-440); RBC 3.51 M/mcL (4.63-6.08); WBC 4.9 K/mcL (4.5-11.0)
[2021-06-07] MEDS: 0.9 % SODIUM CHLORIDE 10 ML SYRINGE IV SCH ×3 (08:26→20:58)
[2021-06-07] MEDS ORDERED: BISOPROLOL 5 MG TABLET PO SCH ×2 (09:00)
[2021-06-07] MEDS ORDERED: POTASSIUM CHLORIDE 20 MEQ in DEXTROSE 5% IN WATER 250 ML IV ONE (09:00)
[2021-06-07] MEDS ORDERED: FLU VACC QS2021-22(6MOS UP)/PF 60 MCG/0.5 ML SYRINGE IM ONE (10:00)
[2021-06-07] MEDS: VANCOMYCIN 1,500 MG in 0.9 % SODIUM CHLORIDE 500 ML IV SCH ×2 (11:08→20:57)
--- NOTE | 2021-06-07 13:20 | Discharge Summary ---
Discharge Provider Provider Patient information: Note initiated : 06/07/21 at 1:16 pm Service Date, if different from initiated Date: [] Patient: Naga Simeon 56 y/o M admitted on 06/05/21 for fever, runny nose. Chief Complaint: [] Date of admission: 06/05/21 21:23 Primary care physician: ANKUR Eugene Consults: 06/05/21 Consult to Physician [CONS] Stat Comment: Consulting Provider: Sergio Yu Reason For Exam: Physician to Consult Consult to Physician [CONS] Stat Comment: Consulting Provider: Jefe Donald Reason For Exam: Physician to Consult 06/05/21 21:32 Consult to Physician [CONS] Routine Comment: Consulting Provider: Sergio Yu Reason For Exam: Physician to Consult 06/06/21 12:53 Consult to Physician [CONS] Routine Comment: Consulting Provider: Giancarlo Hagan Reason For Exam: Physician to Consult Discharge Meds Discharge Medications Home Medications losartan 100 mg tablet 100 mg PO 1600 04/03/18 [History Confirmed 06/05/21 Last Taken 06/05/21 16:00] lorazepam 1 mg tablet 2 mg PO DAILY 07/23/18 [History Confirmed 06/05/21 Last Taken 06/05/21 20:00] bisoprolol fumarate 10 mg tablet 10 mg PO BID #60 tab 06/07/21 [Rx Last Taken Unknown] cefazolin 1 gram intravenous solution 2 g IV TID #1 ea 06/07/21 [Rx Last Taken Unknown] cefazolin 1 gram intravenous solution 2 g IV Q8H #1 ea 06/10/21 [Rx Last Taken Unknown] ciprofloxacin HCl 500 mg tablet (Cipro) 500 mg PO BID #10 tab 06/10/21 [Rx Last Taken Unknown] COURSE Hospital Course Hospital course: History of present illness: Mr. Simeon is a 56 year old M Presents to ED with 10-day history of fevers as well as a mild occasional cough, minimal shortness of breath and diarrhea that started today. Patient feels like he is developing a worsening infection of his left foot after one of his friends looked at his foot today and thought it was getting worse. He has seen Dr. Yu for this outpatient. Work-up in the ED included labs showed a mild leukocytosis. He had hyponatremia of 118 and is on hydrochlorothiazide. But pt also drinks about a gallon of H2o a day, of note he is 100kg. Potassium little low acute kidney injury noted. Lactate okay. Left foot x-ray done. ESR pending. Exam in the ED of the foot malodorous. Dr. Yu will be consulted from ED. 06/05 Afebrile overnight. T-max 99.7 last night. No new complaints. Awaiting follow-up labs. Gram-positive cocci in clusters in both bottles of 1 set. Echo pending. MRI of the foot ordered and podiatry consulted. 06/07 Patient doing well. Sodium improving. No overnight events. No new complaints. 06/08 Feeling well today's. No overnight event or new complaints. Sodium improved. Mild hypokalemia. Hypomagnesemia Awaiting surgery date. Possible discharge tomorrow if SNF will take him on Friday and blood cultures remain negative by tomorrow. 06/09 No overnight event or new complaints. Sodium low but stable. Placed on fluid restrict salt tabs. Magnesium low will replete. Wound culture with multidrug-resistant organism Alcaligenes. 06/10 Patient feeling well. No complaints. A: *Left foot infected ulcer: needs BKA -WC withEnteroboacter/Alcaligenes(MRDO)/Staph *Bacteremia(MSSA): source 2/2 above and probably osteo -no vegetations on TTE; repeat BC neg *SIRS: improved *b/l Severe Charcot foot deformities: Follows with Dr. Yu *Hyponatremia: 118 on admit. pt on HCTZ and volume depletion *Hypokalemia/mag: replete electrolytes *KATE: *HTN: On BB/ARB/HCTZ *Anxiety: *Obese: *Diarrhea: none since admit P: -cefazolin IV 2gm tid & PO Cipro 500mg bid until amputation & 2-wks IV Cefazolin for MSSA bacteremia post amputation. -Dr. Hagan for Left BKA -d/c home HCTZ given hyponatremia Discharge diagnosis: Left foot infected ulcer Charcot foot bacteremia staph aureus Secondary discharge diagnosis: SIRS hyponatremia hypokalemia KATE hypertension anxiety obesity Time Spent with Patient Time attestation: Total time spent providing and/or coordinating discharge services: Time spent: Greater than 30 minutes EXAM Constitutional Vitals: Temp Pulse Resp BP Pulse Ox 97.1 F 80 20 155/49 99 06/07/21 08:00 06/07/21 08:00 06/07/21 08:00 06/07/21 08:00 06/07/21 08:00 Discharge Data Data Completed and Pending Labs on day of discharge: Labs from last 24 hours 06/07/21 06/07/21 06/07/21 07:57 05:12 05:12 WBC RBC Hgb Hct POC Hct MCV MCH MCHC RDW Plt Count MPV Neut % (Auto) Lymph % (Auto) [place] % (Auto) Eos % (Auto) Baso % (Auto) Lymph # (Auto) [place] # (Auto) Eos # (Auto) Baso # (Auto) Seg Neutrophils % Lymphocytes % Monocytes % (Manual) Absolute Neutrophils Nucleated RBCs Platelet Estimate RBC Morphology POC Sodium Sodium 127 L POC Potassium Potassium 3.2 L POC Chloride Chloride 94 L Carbon Dioxide 19 L POC Total CO2 Anion Gap 14.0 POC BUN BUN 9 Creatinine 0.4 L POC Creatinine GFR Calculation 134 Glucose 95 POC Glucose Calcium 8.5 L POC WB Ioniz Calcium C-Reactive Protein 20.00 H Vancomycin Trough 8.1 06/07/21 06/06/21 06/06/21 05:12 18:02 14:24 WBC 4.9 RBC 3.51 L Hgb 11.5 L Hct 32.3 L POC Hct 36 L MCV 92.0 MCH 32.8 MCHC 35.6 RDW 12.0 Plt Count 205 MPV 9.7 Neut % (Auto) 76.6 Lymph % (Auto) 11.4 L [place] % (Auto) 11.2 Eos % (Auto) 0.4 Baso % (Auto) 0.4 Lymph # (Auto) 0.56 L [place] # (Auto) 0.55 Eos # (Auto) 0.02 Baso # (Auto) 0.02 Seg Neutrophils % Lymphocytes % Monocytes % (Manual) Absolute Neutrophils 3.77 Nucleated RBCs Platelet Estimate RBC Morphology POC Sodium 126 L Sodium 122 L POC Potassium 3.4 Potassium POC Chloride 94 L Chloride Carbon Dioxide POC Total CO2 22 Anion Gap POC BUN 13 BUN Creatinine POC Creatinine 0.5 L GFR Calculation Glucose POC Glucose 113 H Calcium POC WB Ioniz Calcium 1.18 C-Reactive Protein Vancomycin Trough 06/06/21 08:00 WBC RBC Hgb Hct POC Hct MCV MCH MCHC RDW Plt Count MPV Neut % (Auto) Lymph % (Auto) [place] % (Auto) Eos % (Auto) Baso % (Auto) Lymph # (Auto) [place] # (Auto) Eos # (Auto) Baso # (Auto) Seg Neutrophils % 86 H Lymphocytes % 9 L Monocytes % (Manual) 5 Absolute Neutrophils Nucleated RBCs 1 H Platelet Estimate Normal RBC Morphology Normal POC Sodium Sodium POC Potassium Potassium POC Chloride Chloride Carbon Dioxide POC Total CO2 Anion Gap POC BUN BUN Creatinine POC Creatinine GFR Calculation Glucose POC Glucose Calcium POC WB Ioniz Calcium C-Reactive Protein Vancomycin Trough Preliminary micro results at discharge 06/05/21 18:28 Blood Culture - Preliminary Blood Staphylococcus aureus 06/05/21 18:15 Blood Culture - Preliminary Blood Staphylococcus aureus 06/05/21 20:35 Gram Stain - Preliminary Foot - Left Wound Culture - Preliminary Enterobacter cloacae Gram positive cocci Discharge Plan Patient/Caregiver Discharge Instructions Activity: increase activity as tolerated Diet: Consistent Carbohydrate Activity Restrictions/Additional Instructions: PICC line care and weekly CBC/CMP/ESR/CRP while on IV antibiotics and send to PCP. DC PICC line and IV antibiotics finish. Prescriptions: New bisoprolol fumarate 10 mg tablet 10 mg PO BID Qty: 60 0RF cefazolin 1 gram recon soln 2 g IV TID Qty: 1 0RF cefazolin 1 gram recon soln 2 g IV Q8H Qty: 1 0RF ciprofloxacin HCl [Cipro] 500 mg tablet 500 mg PO BID Qty: 10 0RF Continued losartan 100 MG tablet 100 mg PO 1600 0RF lorazepam 1 MG tablet 2 mg PO DAILY 0RF Discontinued bisoprolol-hydrochlorothiazide [Ziac] 10-6.25 mg tablet See Rx Instructions .ROUTE .COMPLEX 0RF Rx Instructions: Take one tablet by mouth twice daily. Follow Up Plan Follow up with: Gregg Barnes ARNP [Primary Care Provider] - Giancarlo Hagan MD [Physician] - Patient Disposition: Xfer SNF Prognosis: Fair Rehab Potential: Fair I certify that the patient requires SNF services: Yes Overall status at discharge: patient is progressing back to baseline QUALITY VTE Deep Vein Thrombosis/Pulmonary Embolism Present on Admission: No
[2021-06-07] MEDS: LOSARTAN 50 MG TABLET PO SCH (15:26)
--- NOTE | 2021-06-07 20:33 | Consultation ---
DATE OF CONSULTATION: 06/06/2021 REQUESTING PHYSICIAN: Jefe Donald REASON FOR CONSULTATION: Assessment for below-knee amputation. HISTORY OF PRESENT ILLNESS: This is a 56-year-old male, who was admitted the day prior for fever and runny nose. He also was having shortness of breath and diarrhea. He was felt to have had worsening infection of his left foot and presented to the emergency department. He previously then followed by Dr. Yu with podiatry regarding this foot. He was admitted for leukocytosis, and Dr. Yu was consulted, who assessed his foot and recommended consultation with Orthopedic Surgery for consideration of below-knee amputation. He states that his foot actually looks better today than it did previously. He denied feeling overall worse since admission and currently does not feel feverish. PAST MEDICAL HISTORY: Positive for, what sounds like, some psychiatric issues; he is on disability; hypertension. PAST SURGICAL HISTORY: Apparently a remote history of surgical procedure on that left foot by Dr. Yu and has been diagnosed with Charcot arthropathy. MEDICATIONS: Home medications are losartan, lorazepam, bisoprolol, hydrochlorothiazide. ALLERGIES: NO KNOWN DRUG ALLERGIES. SOCIAL HISTORY: He uses marijuana and drinks alcohol, is unemployed and on disability. PHYSICAL EXAMINATION: VITAL SIGNS: On my assessment, temperature of 99.7, blood pressure 151/91, respirations 20, pulse 79, pulse oximetry 99% on room air. GENERAL: He appears his stated age, in no acute distress. He is oriented to person and place. PSYCHIATRIC: Mood and affect are appropriate. EXTREMITIES: Evaluation of left lower extremity does reveal severe deformity of the foot that is consistent with Charcot arthropathy. There are also ulcers over the medial aspect of the midfoot and a smaller ulcer more proximal on the medial side of the hindfoot. There is no surrounding erythema, and no gross purulent drainage noted; however, there is a black necrotic-appearing tissue. There is no severe erythema or extension proximally. LABORATORY: His CBC from yesterday showed a white count of 11.5. The white count dated 06/06 had normalized down to 6.5. Erythrocyte sedimentation rate is elevated at 91. IMPRESSION: A left foot Charcot arthropathy with severe deformity and chronic wound issues in a 56-year-old male, who does have evidence of infection, although this appears to be much more chronic and does not look acutely septic at this time. PLAN: I did discuss with the patient that I do think his best option with that foot is to undergo a left below-knee amputation. He did state that he was originally wanting to do this in August some time, and I discussed with him that it is not likely reasonable to wait that long. However, I did discuss with him that if he did respond to IV antibiotics and was not acutely septic that I do not think surgery had to proceed emergently. He did state that he thought if it could be delayed until next week, he would have more assistance at home for recovery and he would like to delay surgery until that time. I discussed with him that would be reasonable, assuming he continued to improve in his infection markers. I recommended that we delay surgery for now and will keep him n.p.o. after midnight tonight and reassess tomorrow to see if he is responding. If hospitalist agreed that he was in life-threatening danger at this time, we could delay amputation until week, so that it is his preference. He will continue to be treated with antibiotics per hospitalist management. GUICHO:jessie Job ID: [id number] Doc ID: [id number] Giancarlo Hagan MD
[2021-06-07] MEDS: LORazepam 1 MG TABLET PO SCH (20:57)
[2021-06-08] MEDS: LABETALOL 5 MG/ML ML IV PRN ×2 (00:42→03:32)
[2021-06-08] MEDS: 0.9 % SODIUM CHLORIDE 10 ML SYRINGE IV SCH ×3 (04:20→20:03)
[2021-06-08] MEDS: metroNIDAZOLE 500 MG TABLET PO SCH ×3 (05:45→21:03)
--- NOTE | 2021-06-08 07:38 | Internal Med Progress Note ---
SUBJECTIVE Subjective Patient information: Note initiated : 06/08/21 at 7:33 am Service Date, if different from initiated Date: [] Patient: Naga Simeon 56 y/o M admitted on 06/05/21 for fever, runny nose. Chief Complaint: [] Interval history: History of present illness: Mr. Simeon is a 56 year old M Presents to ED with 10-day history of fevers as well as a mild occasional cough, minimal shortness of breath and diarrhea that started today. Patient feels like he is developing a worsening infection of his left foot after one of his friends looked at his foot today and thought it was getting worse. He has seen Dr. Yu for this outpatient. Work-up in the ED included labs showed a mild leukocytosis. He had hyponatremia of 118 and is on hydrochlorothiazide. But pt also drinks about a gallon of H2o a day, of note he is 100kg. Potassium little low acute kidney injury noted. Lactate okay. Left foot x-ray done. ESR pending. Exam in the ED of the foot malodorous. Dr. Yu will be consulted from ED. 06/05 Afebrile overnight. T-max 99.7 last night. No new complaints. Awaiting follow-up labs. Gram-positive cocci in clusters in both bottles of 1 set. Echo pending. MRI of the foot ordered and podiatry consulted. 2/ Patient doing well. Sodium improving. No overnight events. No new complaints. N.p.o. / Feeling well today's. No overnight event or new complaints. Sodium improved. Mild hypokalemia. Hypomagnesemia Awaiting surgery date. Possible discharge tomorrow if SNF will take him on Friday and blood cultures remain negative by tomorrow. Review of Systems: denies headache/fever/chills/nausea/vomiting/chest or abdominal pain/cough/dyspnea/diarrhea. Otherwise see above. Constitutional Vitals: Vital Signs Temp Pulse Resp BP Pulse Ox 97.9 F 72 22 142/80 98 06/08/21 04:00 06/07/21 23:41 06/08/21 04:00 06/08/21 04:00 06/08/21 04:00 Period Temp Pulse Resp BP Sys/Hurtado Pulse Ox Last 24 Hr 97.1 F-98.8 F 67-80 20-24 120-160/49-90 98-100 Intake and Output 06/07/21 06/08/21 06/08/21 21:59 05:59 13:59 Intake Total 1300 Output Total 220 1100 Balance -220 200 Weight 108.409 kg Intake & Output: Intake & Output 06/07/21 06/08/21 06/08/21 21:59 05:59 13:59 Intake Total 1300 Output Total 220 1100 Balance -220 200 Weight 108.409 kg Intake: IV 500 Vancomycin 1,500 mg In Sodium 500 Chloride 0.9% 500 ml @ 333.3 mls/hr IV Q12H [facility] Rx#: [id number] Oral 800 Output: Void Amount 220 1100 Other: Feeding Ability Independent Urine Appearance Clear Clear Urine Color Dark Yellow Straw Exam: General: Alert, Awake, No acute Distress, obese Eyes/N/T: EOMI, Head/Neck: neck supple, CV: RRR, 1/6 SM, Pulm: Clear b/l, no wheezing/rhonchi/rales Abd: soft, nontender, +BS x4 Ext: no clubbing/cyanosis/edema, b/l feet with severe charcot deformities and b/l ulcerations with left foot ulcer appearing infected. Neuro: Alert, no focal deficits, moves all extremities, Skin: warm/dry OBJ DATA Labs CBC & Chem 7: 06/07/21 05:12 06/08/21 05:26 Labs: Abnormal Lab Results 06/07/21 06/07/21 06/07/21 05:12 05:12 05:12 WBC RBC 3.51 L Hgb 11.5 L Hct 32.3 L POC Hct MCHC Neut % (Auto) Lymph % (Auto) 11.4 L Kerr % (Auto) Lymph # (Auto) 0.56 L Kerr # (Auto) Seg Neutrophils % Lymphocytes % Absolute Neutrophils Nucleated RBCs ESR POC Sodium Sodium 127 L Potassium 3.2 L POC Chloride Chloride 94 L Carbon Dioxide 19 L POC Total CO2 BUN Creatinine 0.4 L POC Creatinine Glucose POC Glucose Osmolality Calcium 8.5 L Total Bilirubin Direct Bilirubin GGT Alkaline Phosphatase C-Reactive Protein 20.00 H Albumin Globulin Albumin/Globulin Ratio Procalcitonin 06/06/21 06/06/21 06/06/21 18:02 14:24 08:00 WBC RBC Hgb Hct POC Hct 36 L 33 L MCHC Neut % (Auto) Lymph % (Auto) Kerr % (Auto) Lymph # (Auto) Kerr # (Auto) Seg Neutrophils % Lymphocytes % Absolute Neutrophils Nucleated RBCs ESR POC Sodium 126 L 126 L Sodium 122 L 124 L Potassium POC Chloride 94 L 94 L Chloride 92 L Carbon Dioxide 19 L POC Total CO2 19 L BUN Creatinine 0.6 L POC Creatinine 0.5 L 0.5 L Glucose 109 H POC Glucose 113 H 108 H Osmolality Calcium 8.1 L Total Bilirubin Direct Bilirubin 0.6 H GGT 224 H Alkaline Phosphatase C-Reactive Protein Albumin 2.4 L Globulin 3.9 H Albumin/Globulin Ratio 0.6 L Procalcitonin 06/06/21 06/06/21 06/05/21 08:00 08:00 23:25 WBC RBC 3.53 L Hgb 11.6 L Hct 32.1 L POC Hct MCHC 36.1 H Neut % (Auto) Lymph % (Auto) Kerr % (Auto) Lymph # (Auto) Kerr # (Auto) Seg Neutrophils % 86 H Lymphocytes % 9 L Absolute Neutrophils Nucleated RBCs 1 H ESR POC Sodium Sodium 117 L* Potassium 2.9 L* POC Chloride Chloride 86 L Carbon Dioxide 19 L POC Total CO2 BUN 23 H Creatinine POC Creatinine Glucose 119 H POC Glucose Osmolality Calcium 7.8 L Total Bilirubin Direct Bilirubin GGT Alkaline Phosphatase C-Reactive Protein Albumin Globulin Albumin/Globulin Ratio Procalcitonin 2.04 H 06/05/21 06/05/21 06/05/21 19:15 18:15 18:15 WBC 11.5 H RBC 4.15 L Hgb 13.4 L Hct 37.6 L POC Hct MCHC Neut % (Auto) 80.9 H Lymph % (Auto) 5.8 L Kerr % (Auto) 12.7 H Lymph # (Auto) 0.67 L Kerr # (Auto) 1.46 H Seg Neutrophils % Lymphocytes % Absolute Neutrophils 9.30 H Nucleated RBCs ESR 91 H POC Sodium Sodium 118 L* Potassium 3.2 L POC Chloride Chloride 84 L Carbon Dioxide 18 L POC Total CO2 BUN 25 H Creatinine POC Creatinine Glucose 117 H POC Glucose Osmolality 268 L Calcium 8.5 L Total Bilirubin 1.2 H Direct Bilirubin GGT Alkaline Phosphatase 144 H C-Reactive Protein 21.40 H Albumin 3.1 L Globulin 4.5 H Albumin/Globulin Ratio 0.7 L Procalcitonin Meds: Medications Acetaminophen (Acetaminophen 325 Mg Tablet) 650 mg PO Q6HP PRN; Protocol PRN Reason: Per Pain Protocol/Fever > 101 Last Admin: 06/06/21 20:07 Dose: 650 mg Documented by: Albuterol/Ipratropium (Ipratropium/Albuterol 3 Ml Ampul.Neb) 3 ml NEB Q4HP PRN PRN Reason: Shortness Of Breath Bisoprolol Fumarate (Bisoprolol 5 Mg Tablet) 10 mg PO DAILY [facility] Last Admin: 06/07/21 08:13 Dose: 10 mg Documented by: Heparin Sodium (Porcine) (Heparin 5,000 Unit/Ml Vial) 5,000 unit SQ Q12 [facility] Last Admin: 06/07/21 20:57 Dose: 5,000 unit Documented by: Potassium Chloride 40 meq/ (Dextrose) 520 mls @ 130 mls/hr IV UD PRN PRN Reason: Potassium < 3 Last Infusion: 06/06/21 06:17 Dose: Infused Documented by: Magnesium Sulfate (Magnesium Sulfate) 2 gm in 50 mls @ 50 mls/hr IV UD PRN PRN Reason: Magnesium </= 1.6 Last Infusion: 06/06/21 18:00 Dose: Infused Documented by: Ceftriaxone Sodium 2 gm/ (Dextrose) 50 mls @ 100 mls/hr IV DAILY [facility]; Protocol Last Infusion: 06/07/21 08:43 Dose: Infused Documented by: Vancomycin HCl 1,500 mg/ (Sodium Chloride) 500 mls @ 333.3 mls/hr IV Q12H [facility] Last Infusion: 06/07/21 22:50 Dose: Infused Documented by: Labetalol HCl (Labetalol 5 Mg/Ml Ml) 0 mg IV Q2HP PRN PRN Reason: Hypertension Last Admin: 06/08/21 03:32 Dose: 10 mg Documented by: Lorazepam (Lorazepam 1 Mg Tablet) 2 mg PO HS [facility] Last Admin: 06/07/21 20:57 Dose: 2 mg Documented by: Losartan Potassium (Losartan 50 Mg Tablet) 100 mg PO 1600 [facility] Last Admin: 06/07/21 15:26 Dose: 100 mg Documented by: Metronidazole (Metronidazole 500 Mg Tablet) 500 mg PO Q8 [facility]; Protocol Last Admin: 06/08/21 05:45 Dose: 500 mg Documented by: Ondansetron HCl (Ondansetron 4 Mg/2 Ml Vial) 4 mg IV Q4HP PRN PRN Reason: Nausea And Vomiting Potassium Chloride (Potassium Chloride 20 Meq Tablet) 40 meq PO UD PRN PRN Reason: Potssium is 3-3.5 Last Admin: 06/05/21 22:26 Dose: 40 meq Documented by: Potassium Chloride (Potassium Chloride 20 Meq Tablet) 40 meq PO UD PRN PRN Reason: Potassium < 3 Sodium Chloride (0.9 % Sodium Chloride 10 Ml Syringe) 10 ml IV Q8 [facility] Last Admin: 06/08/21 04:20 Dose: 10 ml Documented by: Vancomycin HCl (Vancomycin Per Pharmacy) 1 order IV UD [facility]; Protocol A/P Narrative A/P Narrative: A: *Left foot infected ulcer: needs BKA -WC with Enteroboacter & GPC *Bacteremia(Staph Aureus): source 2/2 above and probably osteo -no vegetations on TTE *SIRS: improved *b/l Severe Charcot foot deformities: Follows with Dr. Yu *Hyponatremia: 118 on admit. pt on HCTZ and volume depletion -Improved *Hypokalemia/mag: replete electrolytes *KATE: *HTN: On BB/ARB/HCTZ *Anxiety: *Obese: *Diarrhea: none since admit P: -Vanc/Rocephin/Flag, pending f/u serial BC/WC -likely Abx regimen is PO flagyl & Cefazolin IV 2gm tid if MSSA until amputation & 2-wks IV Therapy post amputation. -Dr. Hagan for Left BKA -Continue home BB/ARB, stopped home HCTZ -PT/OT -ppx: heparin DNR Time Spent With Patient Time: Total time spent is greater than 50% in coordination of care (as documented) at patient's floor/unit and/or counseling patient: QUALITY VTE Deep Vein Thrombosis/Pulmonary Embolism Present on Admission: No
[2021-06-08 08:27] LABS: ALT/SGPT 18 U/L (<40); AST/SGOT 28 U/L (<40); Albumin 2.3 gm/dL (3.2-5.2); Albumin/Globulin Ratio 0.6 (1.0-2.3); Alkaline Phosphatase 127 U/L (39-117); Bilirubin,Direct 0.9 mg/dL (<0.3); Bilirubin,Total 1.3 mg/dL (0.1-1.0); Blood Urea Nitrogen 7 mg/dL (6-20); Calcium 8.4 mg/dL (8.6-10.4); Carbon Dioxide 22 mmol/L (22-30); Chloride 93 mmol/L (96-108); Globulin 3.7 gm/dL (2.2-3.7); Glomerular Filtration Rate 134; Glucose 95 mg/dL (70-105); Lactate Dehydrogenase 132 U/L (135-225); Phosphorous 4.1 mg/dL (2.5-4.5); Triglycerides 56 mg/dL (<150); Uric Acid 2.4 mg/dL (2.5-8.0)
[2021-06-08] MEDS ORDERED: MAGNESIUM SULFATE 2 GM/50 ML BAG IV ONE (08:45)
[2021-06-08] MEDS ORDERED: FUROSEMIDE 40 MG/4 ML VIAL IV ONE (08:46)
[2021-06-08] MEDS: BISOPROLOL 5 MG TABLET PO SCH ×2 (08:50→19:56)
[2021-06-08] MEDS: HEPARIN 5,000 UNIT/ML VIAL SQ SCH ×2 (08:51→19:55)
[2021-06-08] MEDS ORDERED: ceFAZolin 2 GM in DEXTROSE 5% IN WATER 50 ML IV SCH ×2 (11:45→12:00)
[2021-06-08] MEDS: CIPROFLOXACIN 400 MG/200 ML BAG IV SCH ×2 (12:20→20:04)
[2021-06-08] MEDS: SODIUM CHLORIDE 1 GM TABLET PO SCH ×3 (12:23→19:55)
[2021-06-08] MEDS: ceFAZolin 1 GM VIAL IV SCH ×2 (12:23→21:03)
[2021-06-08] MEDS: cefTRIAXone 2 GM in DEXTROSE 5% IN WATER 50 ML IV SCH (14:22)
[2021-06-08] MEDS: VANCOMYCIN 1,500 MG in 0.9 % SODIUM CHLORIDE 500 ML IV SCH (14:22)
[2021-06-08] MEDS: LOSARTAN 50 MG TABLET PO SCH (15:59)
[2021-06-08] MEDS: ONDANSETRON 4 MG/2 ML VIAL IV PRN (16:38)
[2021-06-08] MEDS: POTASSIUM CHLORIDE 20 MEQ TABLET PO SCH (16:41)
[2021-06-08] MEDS: LORazepam 1 MG TABLET PO SCH (19:56)
[2021-06-09] MEDS: 0.9 % SODIUM CHLORIDE 10 ML SYRINGE IV SCH ×4 (05:07→20:30)
[2021-06-09] MEDS: ceFAZolin 1 GM VIAL IV SCH ×3 (05:07→21:40)
[2021-06-09] MEDS: metroNIDAZOLE 500 MG TABLET PO SCH ×3 (05:07→20:33)
[2021-06-09 07:09] LABS: ALT/SGPT 24 U/L (<40); AST/SGOT 46 U/L (<40); Albumin 2.1 gm/dL (3.2-5.2); Albumin/Globulin Ratio 0.5 (1.0-2.3); Alkaline Phosphatase 158 U/L (39-117); Bilirubin,Direct 0.7 mg/dL (<0.3); Blood Urea Nitrogen 8 mg/dL (6-20); Calcium 8.6 mg/dL (8.6-10.4); Carbon Dioxide 23 mmol/L (22-30); Chloride 95 mmol/L (96-108); Globulin 4.2 gm/dL (2.2-3.7); Glomerular Filtration Rate 122; Glucose 101 mg/dL (70-105); Lactate Dehydrogenase 160 U/L (135-225); Phosphorous 3.4 mg/dL (2.5-4.5); Triglycerides 68 mg/dL (<150); Uric Acid 2.4 mg/dL (2.5-8.0)
[2021-06-09] MEDS ORDERED: FUROSEMIDE 40 MG/4 ML VIAL IV ONE (08:08)
[2021-06-09] MEDS ORDERED: MAGNESIUM SULFATE 2 GM/50 ML BAG IV ONE ×2 (08:08→17:12)
[2021-06-09] MEDS ORDERED: ALBUMIN HUMAN 12.5 GM/50 ML BAG IV ONE (08:08)
--- NOTE | 2021-06-09 08:08 | Internal Med Progress Note ---
SUBJECTIVE Subjective Patient information: Note initiated : 06/09/21 at 8:06 am Service Date, if different from initiated Date: [] Patient: Naga Simeon 56 y/o M admitted on 06/05/21 for fever, runny nose. Chief Complaint: [] Interval history: History of present illness: Mr. Simeon is a 56 year old M Presents to ED with 10-day history of fevers as well as a mild occasional cough, minimal shortness of breath and diarrhea that started today. Patient feels like he is developing a worsening infection of his left foot after one of his friends looked at his foot today and thought it was getting worse. He has seen Dr. Yu for this outpatient. Work-up in the ED included labs showed a mild leukocytosis. He had hyponatremia of 118 and is on hydrochlorothiazide. But pt also drinks about a gallon of H2o a day, of note he is 100kg. Potassium little low acute kidney injury noted. Lactate okay. Left foot x-ray done. ESR pending. Exam in the ED of the foot malodorous. Dr. Yu will be consulted from ED. 06/05 Afebrile overnight. T-max 99.7 last night. No new complaints. Awaiting follow-up labs. Gram-positive cocci in clusters in both bottles of 1 set. Echo pending. MRI of the foot ordered and podiatry consulted. 2 Patient doing well. Sodium improving. No overnight events. No new complaints. N.p.o. / Feeling well today's. No overnight event or new complaints. Sodium improved. Mild hypokalemia. Hypomagnesemia Awaiting surgery date. Possible discharge tomorrow if SNF will take him on Friday and blood cultures remain negative by tomorrow. 06/09 No overnight event or new complaints. Sodium low but stable. Placed on fluid restrict salt tabs. Magnesium low will replete. Wound culture with multidrug-resistant organism Alcaligenes. Review of Systems: denies headache/fever/chills/nausea/vomiting/chest or abdominal pain/cough/dyspnea/diarrhea. Otherwise see above. Constitutional Vitals: Vital Signs Temp Pulse Resp BP Pulse Ox 97.9 F 69 16 159/94 99 06/09/21 07:24 06/09/21 07:24 06/09/21 07:24 06/09/21 07:24 06/09/21 07:24 Period Temp Pulse Resp BP Sys/Hurtado Pulse Ox Last 24 Hr 97.5 F-99.0 F 69-86 16-20 142-172/83-94 97-99 Intake and Output 06/08/21 06/09/21 06/09/21 21:59 05:59 13:59 Intake Total 700 1040 Output Total 1900 1260 Balance -1200 -220 Weight 108.068 kg Intake & Output: Intake & Output 06/08/21 06/09/21 06/09/21 21:59 05:59 13:59 Intake Total 700 1040 Output Total 1900 1260 Balance -1200 -220 Weight 108.068 kg Intake: IV 200 Oral 500 1040 Output: Void Amount 1900 1260 Other: Meal Dinner Percent of Meal Consumed 100% Feeding Ability Independent Urine Appearance Clear Clear Urine Color Dark Yellow Dark Yellow Exam: General: Alert, Awake, No acute Distress, obese Eyes/N/T: EOMI, Head/Neck: neck supple, CV: RRR, 1/6 SM, Pulm: Clear b/l, no wheezing/rhonchi/rales Abd: soft, nontender, +BS x4 Ext: no clubbing/cyanosis/edema, b/l feet with severe charcot deformities and b/l ulcerations in dressings Neuro: Alert, no focal deficits, moves all extremities, Skin: warm/dry OBJ DATA Labs CBC & Chem 7: 06/07/21 05:12 06/09/21 05:25 Labs: Abnormal Lab Results 06/09/21 06/08/21 06/07/21 05:25 05:26 05:12 RBC Hgb Hct POC Hct MCHC Lymph % (Auto) Lymph # (Auto) Seg Neutrophils % Lymphocytes % Nucleated RBCs POC Sodium Sodium 128 L 128 L Potassium 3.1 L POC Chloride Chloride 95 L 93 L Carbon Dioxide POC Total CO2 Creatinine 0.5 L 0.4 L POC Creatinine Glucose POC Glucose Uric Acid 2.4 L 2.4 L Calcium 8.4 L Magnesium 1.4 L 1.3 L Total Bilirubin 1.3 H Direct Bilirubin 0.7 H 0.9 H GGT 348 H 250 H AST 46 H Alkaline Phosphatase 158 H 127 H Lactate Dehydrogenase 132 L C-Reactive Protein 20.00 H Albumin 2.1 L 2.3 L Globulin 4.2 H Albumin/Globulin Ratio 0.5 L 0.6 L Procalcitonin 06/07/21 06/07/21 06/06/21 05:12 05:12 18:02 RBC 3.51 L Hgb 11.5 L Hct 32.3 L POC Hct MCHC Lymph % (Auto) 11.4 L Lymph # (Auto) 0.56 L Seg Neutrophils % Lymphocytes % Nucleated RBCs POC Sodium Sodium 127 L 122 L Potassium 3.2 L POC Chloride Chloride 94 L Carbon Dioxide 19 L POC Total CO2 Creatinine 0.4 L POC Creatinine Glucose POC Glucose Uric Acid Calcium 8.5 L Magnesium Total Bilirubin Direct Bilirubin GGT AST Alkaline Phosphatase Lactate Dehydrogenase C-Reactive Protein Albumin Globulin Albumin/Globulin Ratio Procalcitonin 06/06/21 06/06/21 06/06/21 14:24 08:00 08:00 RBC 3.53 L Hgb 11.6 L Hct 32.1 L POC Hct 36 L 33 L MCHC 36.1 H Lymph % (Auto) Lymph # (Auto) Seg Neutrophils % 86 H Lymphocytes % 9 L Nucleated RBCs 1 H POC Sodium 126 L 126 L Sodium 124 L Potassium POC Chloride 94 L 94 L Chloride 92 L Carbon Dioxide 19 L POC Total CO2 19 L Creatinine 0.6 L POC Creatinine 0.5 L 0.5 L Glucose 109 H POC Glucose 113 H 108 H Uric Acid Calcium 8.1 L Magnesium Total Bilirubin Direct Bilirubin 0.6 H GGT 224 H AST Alkaline Phosphatase Lactate Dehydrogenase C-Reactive Protein Albumin 2.4 L Globulin 3.9 H Albumin/Globulin Ratio 0.6 L Procalcitonin 06/06/21 08:00 RBC Hgb Hct POC Hct MCHC Lymph % (Auto) Lymph # (Auto) Seg Neutrophils % Lymphocytes % Nucleated RBCs POC Sodium Sodium Potassium POC Chloride Chloride Carbon Dioxide POC Total CO2 Creatinine POC Creatinine Glucose POC Glucose Uric Acid Calcium Magnesium Total Bilirubin Direct Bilirubin GGT AST Alkaline Phosphatase Lactate Dehydrogenase C-Reactive Protein Albumin Globulin Albumin/Globulin Ratio Procalcitonin 2.04 H Meds: Medications Acetaminophen (Acetaminophen 325 Mg Tablet) 650 mg PO Q6HP PRN; Protocol PRN Reason: Per Pain Protocol/Fever > 101 Last Admin: 06/06/21 20:07 Dose: 650 mg Documented by: Albuterol/Ipratropium (Ipratropium/Albuterol 3 Ml Ampul.Neb) 3 ml NEB Q4HP PRN PRN Reason: Shortness Of Breath Bisoprolol Fumarate (Bisoprolol 5 Mg Tablet) 10 mg PO BID [facility] Last Admin: 06/08/21 19:56 Dose: 10 mg Documented by: Cefazolin Sodium (Cefazolin 1 Gm Vial) 2 gm IV Q8H [facility] Last Admin: 06/09/21 05:07 Dose: 2 gm Documented by: Heparin Sodium (Porcine) (Heparin 5,000 Unit/Ml Vial) 5,000 unit SQ Q12 [facility] Last Admin: 06/08/21 19:55 Dose: 5,000 unit Documented by: Potassium Chloride 40 meq/ (Dextrose) 520 mls @ 130 mls/hr IV UD PRN PRN Reason: Potassium < 3 Last Infusion: 06/06/21 06:17 Dose: Infused Documented by: Magnesium Sulfate (Magnesium Sulfate) 2 gm in 50 mls @ 50 mls/hr IV UD PRN PRN Reason: Magnesium </= 1.6 Last Infusion: 06/06/21 18:00 Dose: Infused Documented by: Ciprofloxacin (Cipro) 400 mg in 200 mls @ 200 mls/hr IV Q12H [facility]; Protocol Last Infusion: 06/08/21 21:16 Dose: Infused Documented by: Labetalol HCl (Labetalol 5 Mg/Ml Ml) 0 mg IV Q2HP PRN PRN Reason: Hypertension Last Admin: 06/08/21 03:32 Dose: 10 mg Documented by: Lorazepam (Lorazepam 1 Mg Tablet) 2 mg PO HS [facility] Last Admin: 06/08/21 19:56 Dose: 2 mg Documented by: Losartan Potassium (Losartan 50 Mg Tablet) 100 mg PO 1600 [facility] Last Admin: 06/08/21 15:59 Dose: 100 mg Documented by: Metronidazole (Metronidazole 500 Mg Tablet) 500 mg PO Q8 [facility]; Protocol Last Admin: 06/09/21 05:07 Dose: 500 mg Documented by: Ondansetron HCl (Ondansetron 4 Mg/2 Ml Vial) 4 mg IV Q4HP PRN PRN Reason: Nausea And Vomiting Last Admin: 06/08/21 16:38 Dose: 4 mg Documented by: Potassium Chloride (Potassium Chloride 20 Meq Tablet) 40 meq PO UD PRN PRN Reason: Potssium is 3-3.5 Last Admin: 06/05/21 22:26 Dose: 40 meq Documented by: Potassium Chloride (Potassium Chloride 20 Meq Tablet) 40 meq PO UD PRN PRN Reason: Potassium < 3 Sodium Chloride (0.9 % Sodium Chloride 10 Ml Syringe) 10 ml IV Q8 [facility] Last Admin: 06/09/21 05:07 Dose: 10 ml Documented by: Sodium Chloride (Sodium Chloride 1 Gm Tablet) 1 gm PO TID [facility] Last Admin: 06/08/21 19:55 Dose: 1 gm Documented by: A/P Narrative A/P Narrative: A: *Left foot infected ulcer: needs BKA -WC with Enteroboacter/Alcaligenes(MRDO)/Staph *Bacteremia(MSSA): source 2/2 above and probably osteo -no vegetations on TTE; repeat BC neg *SIRS: improved *b/l Severe Charcot foot deformities: Follows with Dr. Yu *Hyponatremia: 118 on admit. pt on HCTZ and volume depletion -Improved *Hypokalemia/mag: replete electrolytes *KATE: *HTN: On BB/ARB/HCTZ *Anxiety: *Obese: *Diarrhea: none since admit P: -Cefazolin/Cipro vs Meropenem/Ert -d/c on cefazolin 2gm tid & PO Cipro 500mg bid Abx until amputation & 2-wks IV Cefazolin for MSSA bacteremia post amputation. -Dr. Hagan for Left BKA -Continue home BB/ARB, stopped home HCTZ -PT/OT -ppx: heparin DNR Time Spent With Patient Time: Total time spent is greater than 50% in coordination of care (as documented) at patient's floor/unit and/or counseling patient: QUALITY VTE Deep Vein Thrombosis/Pulmonary Embolism Present on Admission: No
[2021-06-09] MEDS: HEPARIN 5,000 UNIT/ML VIAL SQ SCH ×2 (09:02→20:28)
[2021-06-09] MEDS: BISOPROLOL 5 MG TABLET PO SCH ×2 (09:03→20:28)
[2021-06-09] MEDS: POTASSIUM CHLORIDE 20 MEQ TABLET PO SCH (09:03)
[2021-06-09] MEDS: SODIUM CHLORIDE 1 GM TABLET PO SCH ×3 (09:04→20:29)
[2021-06-09] MEDS ORDERED: 0.9 % SODIUM CHLORIDE 10 ML SYRINGE IV PRN (09:36)
[2021-06-09] MEDS: CIPROFLOXACIN 400 MG/200 ML BAG IV SCH ×2 (10:51→20:27)
[2021-06-09] MEDS: LABETALOL 5 MG/ML ML IV PRN (16:00)
[2021-06-09] MEDS: LOSARTAN 50 MG TABLET PO SCH (16:01)
[2021-06-09 16:59] LABS: Blood Urea Nitrogen 10 mg/dL (6-20); Calcium 8.5 mg/dL (8.6-10.4); Carbon Dioxide 23 mmol/L (22-30); Chloride 91 mmol/L (96-108); Glomerular Filtration Rate 134; Glucose 113 mg/dL (70-105)
[2021-06-09] MEDS ORDERED: FUROSEMIDE 20 MG/2 ML VIAL IV ONE (17:12)
[2021-06-09] MEDS: LORazepam 1 MG TABLET PO SCH (20:28)
[2021-06-10] MEDS: metroNIDAZOLE 500 MG TABLET PO SCH ×3 (05:57→22:01)
[2021-06-10] MEDS: ceFAZolin 1 GM VIAL IV SCH ×3 (05:57→22:01)
[2021-06-10] MEDS: 0.9 % SODIUM CHLORIDE 10 ML SYRINGE IV SCH ×6 (05:58→20:44)
--- NOTE | 2021-06-10 08:28 | Internal Med Progress Note ---
SUBJECTIVE Subjective Patient information: Note initiated : 06/10/21 at 8:26 am Service Date, if different from initiated Date: [] Patient: Naga Simeon 56 y/o M admitted on 06/05/21 for fever, runny nose. Chief Complaint: [] Interval history: History of present illness: Mr. Simeon is a 56 year old M Presents to ED with 10-day history of fevers as well as a mild occasional cough, minimal shortness of breath and diarrhea that started today. Patient feels like he is developing a worsening infection of his left foot after one of his friends looked at his foot today and thought it was getting worse. He has seen Dr. Yu for this outpatient. Work-up in the ED included labs showed a mild leukocytosis. He had hyponatremia of 118 and is on hydrochlorothiazide. But pt also drinks about a gallon of H2o a day, of note he is 100kg. Potassium little low acute kidney injury noted. Lactate okay. Left foot x-ray done. ESR pending. Exam in the ED of the foot malodorous. Dr. Yu will be consulted from ED. 06/05 Afebrile overnight. T-max 99.7 last night. No new complaints. Awaiting follow-up labs. Gram-positive cocci in clusters in both bottles of 1 set. Echo pending. MRI of the foot ordered and podiatry consulted. 2/ Patient doing well. Sodium improving. No overnight events. No new complaints. N.p.o. / Feeling well today's. No overnight event or new complaints. Sodium improved. Mild hypokalemia. Hypomagnesemia Awaiting surgery date. Possible discharge tomorrow if SNF will take him on Friday and blood cultures remain negative by tomorrow. 2 No overnight event or new complaints. Sodium low but stable. Placed on fluid restrict salt tabs. Magnesium low will replete. Wound culture with multidrug-resistant organism Alcaligenes. 06/10 Patient feeling well. No complaints. Review of Systems: denies headache/fever/chills/nausea/vomiting/chest or abdominal pain/cough/dyspnea/diarrhea. Otherwise see above. Constitutional Vitals: Vital Signs Temp Pulse Resp BP Pulse Ox 97.2 F 68 18 155/93 98 06/10/21 07:19 06/10/21 07:19 06/10/21 07:19 06/10/21 07:19 06/10/21 07:19 Period Temp Pulse Resp BP Sys/Hurtado Pulse Ox Last 24 Hr 97.2 F-98.6 F 68-78 16-20 145-161/83-93 97-99 Intake and Output 06/09/21 06/10/21 06/10/21 21:59 05:59 13:59 Intake Total 450 637 Output Total 2170 840 Balance -1720 -203 Weight 107.275 kg Intake & Output: Intake & Output 06/09/21 06/10/21 06/10/21 21:59 05:59 13:59 Intake Total 450 637 Output Total 2170 840 Balance -1720 -203 Weight 107.275 kg Intake: IV 50 200 Oral 437 GI Tube Flush 400 Output: Urine Catheter Amount 350 Void Amount 1820 840 Other: Urine Appearance Clear Clear Urine Color Pale Dark Yellow Stool Size Large Stool Color Brown Stool Consistency Soft Exam: General: Alert, Awake, No acute Distress, obese Eyes/N/T: EOMI, Head/Neck: neck supple, CV: RRR, 1/6 SM, Pulm: Clear b/l, no wheezing/rhonchi/rales Abd: soft, nontender, +BS x4 Ext: no clubbing/cyanosis/edema, b/l feet with severe charcot deformities and b/l ulcerations in dressings Neuro: Alert, no focal deficits, moves all extremities, Skin: warm/dry OBJ DATA Labs CBC & Chem 7: 06/07/21 05:12 06/10/21 05:25 Labs: Abnormal Lab Results 06/09/21 06/09/21 06/08/21 15:34 05:25 05:26 RBC Hgb Hct Lymph % (Auto) Lymph # (Auto) Sodium 124 L 128 L 128 L Potassium 3.1 L Chloride 91 L 95 L 93 L Creatinine 0.4 L 0.5 L 0.4 L Glucose 113 H Uric Acid 2.4 L 2.4 L Calcium 8.5 L 8.4 L Magnesium 1.5 L 1.4 L 1.3 L Total Bilirubin 1.3 H Direct Bilirubin 0.7 H 0.9 H GGT 348 H 250 H AST 46 H Alkaline Phosphatase 158 H 127 H Lactate Dehydrogenase 132 L Albumin 2.1 L 2.3 L Globulin 4.2 H Albumin/Globulin Ratio 0.5 L 0.6 L 06/07/21 05:12 RBC 3.51 L Hgb 11.5 L Hct 32.3 L Lymph % (Auto) 11.4 L Lymph # (Auto) 0.56 L Sodium Potassium Chloride Creatinine Glucose Uric Acid Calcium Magnesium Total Bilirubin Direct Bilirubin GGT AST Alkaline Phosphatase Lactate Dehydrogenase Albumin Globulin Albumin/Globulin Ratio Meds: Medications Acetaminophen (Acetaminophen 325 Mg Tablet) 650 mg PO Q6HP PRN; Protocol PRN Reason: Per Pain Protocol/Fever > 101 Last Admin: 06/06/21 20:07 Dose: 650 mg Documented by: Albuterol/Ipratropium (Ipratropium/Albuterol 3 Ml Ampul.Neb) 3 ml NEB Q4HP PRN PRN Reason: Shortness Of Breath Bisoprolol Fumarate (Bisoprolol 5 Mg Tablet) 10 mg PO BID [facility] Last Admin: 06/09/21 20:28 Dose: 10 mg Documented by: Cefazolin Sodium (Cefazolin 1 Gm Vial) 2 gm IV Q8H [facility] Last Admin: 06/10/21 05:57 Dose: 2 gm Documented by: Heparin Sodium (Porcine) (Heparin 5,000 Unit/Ml Vial) 5,000 unit SQ Q12 [facility] Last Admin: 06/09/21 20:28 Dose: 5,000 unit Documented by: Heparin Sodium (Porcine) (Heparin Flush 10 Units/Ml 5 Ml Syringe) 2 ml IV Q12 [facility] Last Admin: 06/09/21 20:30 Dose: Not Given Documented by: Potassium Chloride 40 meq/ (Dextrose) 520 mls @ 130 mls/hr IV UD PRN PRN Reason: Potassium < 3 Last Infusion: 06/06/21 06:17 Dose: Infused Documented by: Magnesium Sulfate (Magnesium Sulfate) 2 gm in 50 mls @ 50 mls/hr IV UD PRN PRN Reason: Magnesium </= 1.6 Last Infusion: 06/06/21 18:00 Dose: Infused Documented by: Ciprofloxacin (Cipro) 400 mg in 200 mls @ 200 mls/hr IV Q12H [facility]; Protocol Last Infusion: 06/10/21 02:13 Dose: Infused Documented by: Labetalol HCl (Labetalol 5 Mg/Ml Ml) 0 mg IV Q2HP PRN PRN Reason: Hypertension Last Admin: 06/09/21 16:00 Dose: 10 mg Documented by: Lorazepam (Lorazepam 1 Mg Tablet) 2 mg PO HS [facility] Last Admin: 06/09/21 20:28 Dose: 2 mg Documented by: Losartan Potassium (Losartan 50 Mg Tablet) 100 mg PO 1600 [facility] Last Admin: 06/09/21 16:01 Dose: 100 mg Documented by: Metronidazole (Metronidazole 500 Mg Tablet) 500 mg PO Q8 [facility]; Protocol Last Admin: 06/10/21 05:57 Dose: 500 mg Documented by: Ondansetron HCl (Ondansetron 4 Mg/2 Ml Vial) 4 mg IV Q4HP PRN PRN Reason: Nausea And Vomiting Last Admin: 06/08/21 16:38 Dose: 4 mg Documented by: Potassium Chloride (Potassium Chloride 20 Meq Tablet) 40 meq PO UD PRN PRN Reason: Potssium is 3-3.5 Last Admin: 06/05/21 22:26 Dose: 40 meq Documented by: Potassium Chloride (Potassium Chloride 20 Meq Tablet) 40 meq PO UD PRN PRN Reason: Potassium < 3 Sodium Chloride (0.9 % Sodium Chloride 10 Ml Syringe) 10 ml IV Q8 [facility] Last Admin: 06/10/21 05:58 Dose: 10 ml Documented by: Sodium Chloride (0.9 % Sodium Chloride 10 Ml Syringe) 10 ml IV UD PRN PRN Reason: FLUSH Sodium Chloride (0.9 % Sodium Chloride 10 Ml Syringe) 10 ml IV Q12 [facility] Last Admin: 06/09/21 20:30 Dose: Not Given Documented by: Sodium Chloride (Sodium Chloride 1 Gm Tablet) 2 gm PO TID [facility] Last Admin: 06/09/21 20:29 Dose: 2 gm Documented by: A/P Narrative A/P Narrative: A: *Left foot infected ulcer: needs BKA -WC with Enteroboacter/Alcaligenes(MRDO)/Staph *Bacteremia(MSSA): source 2/2 above and probably osteo -no vegetations on TTE; repeat BC neg *SIRS: improved *b/l Severe Charcot foot deformities: Follows with Dr. Yu *Hyponatremia: 118 on admit. pt on HCTZ and volume depletion -Improved *Hypokalemia/mag: replete electrolytes *KATE: *HTN: On BB/ARB/HCTZ *Anxiety: *Obese: *Diarrhea: none since admit P: -Cefazolin/Cipro vs Meropenem/Ert -d/c on cefazolin 2gm tid & PO Cipro 500mg bid Abx until amputation & 2-wks IV Cefazolin for MSSA bacteremia post amputation. -Dr. Hagan for Left BKA -fluid restrict, salt tabs -Continue home BB/ARB, stopped home HCTZ -PT/OT -ppx: heparin DNR Time Spent With Patient Time: Total time spent is greater than 50% in coordination of care (as documented) at patient's floor/unit and/or counseling patient: QUALITY VTE Deep Vein Thrombosis/Pulmonary Embolism Present on Admission: No
[2021-06-10 08:44] LABS: ALT/SGPT 23 U/L (<40); AST/SGOT 43 U/L (<40); Albumin 2.4 gm/dL (3.2-5.2); Albumin/Globulin Ratio 0.6 (1.0-2.3); Alkaline Phosphatase 162 U/L (39-117); Bilirubin,Direct 0.4 mg/dL (<0.3); Bilirubin,Total 0.7 mg/dL (0.1-1.0); Blood Urea Nitrogen 10 mg/dL (6-20); Carbon Dioxide 25 mmol/L (22-30); Chloride 98 mmol/L (96-108); Globulin 4.2 gm/dL (2.2-3.7); Glomerular Filtration Rate 122; Glucose 103 mg/dL (70-105); Lactate Dehydrogenase 141 U/L (135-225); Phosphorous 4.5 mg/dL (2.5-4.5); Triglycerides 92 mg/dL (<150); Uric Acid 2.8 mg/dL (2.5-8.0)
[2021-06-10] MEDS: SODIUM CHLORIDE 1 GM TABLET PO SCH ×3 (09:01→20:36)
[2021-06-10] MEDS: BISOPROLOL 5 MG TABLET PO SCH ×2 (09:01→20:36)
[2021-06-10] MEDS: HEPARIN 5,000 UNIT/ML VIAL SQ SCH ×2 (09:01→20:43)
[2021-06-10] MEDS: LABETALOL 5 MG/ML ML IV PRN ×3 (09:19→20:37)
[2021-06-10] MEDS: MAGNESIUM SULFATE 2 GM/50 ML BAG IV PRN (09:19)
[2021-06-10] MEDS: CIPROFLOXACIN 400 MG/200 ML BAG IV SCH ×2 (10:37→20:44)
[2021-06-10] MEDS: ACETAMINOPHEN 325 MG TABLET PO PRN (13:59)
[2021-06-10] MEDS: LOSARTAN 50 MG TABLET PO SCH (16:44)
[2021-06-10] MEDS: LORazepam 1 MG TABLET PO SCH (20:36)
[2021-06-11] MEDS: LABETALOL 5 MG/ML ML IV PRN ×3 (00:02→10:23)
[2021-06-11] MEDS: 0.9 % SODIUM CHLORIDE 10 ML SYRINGE IV SCH ×5 (04:45→21:25)
[2021-06-11] MEDS: metroNIDAZOLE 500 MG TABLET PO SCH ×3 (04:49→21:20)
[2021-06-11] MEDS: ceFAZolin 1 GM VIAL IV SCH ×3 (04:49→21:23)
[2021-06-11 07:26] LABS: Blood Urea Nitrogen 10 mg/dL (6-20); Calcium 8.4 mg/dL (8.6-10.4); Carbon Dioxide 17 mmol/L (22-30); Chloride 95 mmol/L (96-108); Glomerular Filtration Rate 122; Glucose 104 mg/dL (70-105)
[2021-06-11] MEDS ORDERED: FUROSEMIDE 40 MG/4 ML VIAL IV ONE (07:59)
[2021-06-11] MEDS ORDERED: ALBUMIN HUMAN 12.5 GM/50 ML BAG IV ONE (07:59)
--- NOTE | 2021-06-11 07:59 | Internal Med Progress Note ---
SUBJECTIVE Subjective Patient information: Note initiated : 06/11/21 at 7:58 am Service Date, if different from initiated Date: [] Patient: Naga Simeon 56 y/o M admitted on 06/05/21 for fever, runny nose. Chief Complaint: [] Interval history: History of present illness: Mr. Simeon is a 56 year old M Presents to ED with 10-day history of fevers as well as a mild occasional cough, minimal shortness of breath and diarrhea that started today. Patient feels like he is developing a worsening infection of his left foot after one of his friends looked at his foot today and thought it was getting worse. He has seen Dr. Yu for this outpatient. Work-up in the ED included labs showed a mild leukocytosis. He had hyponatremia of 118 and is on hydrochlorothiazide. But pt also drinks about a gallon of H2o a day, of note he is 100kg. Potassium little low acute kidney injury noted. Lactate okay. Left foot x-ray done. ESR pending. Exam in the ED of the foot malodorous. Dr. Yu will be consulted from ED. 06/05 Afebrile overnight. T-max 99.7 last night. No new complaints. Awaiting follow-up labs. Gram-positive cocci in clusters in both bottles of 1 set. Echo pending. MRI of the foot ordered and podiatry consulted. 2 Patient doing well. Sodium improving. No overnight events. No new complaints. N.p.o. 06/08 Feeling well today's. No overnight event or new complaints. Sodium improved. Mild hypokalemia. Hypomagnesemia Awaiting surgery date. Possible discharge tomorrow if SNF will take him on Friday and blood cultures remain negative by tomorrow. 06/09 No overnight event or new complaints. Sodium low but stable. Placed on fluid restrict salt tabs. Magnesium low will replete. Wound culture with multidrug-resistant organism Alcaligenes. 06/10 Patient feeling well. No complaints. 06/11 Doing well. Sodium dropped today. Suspect that partial component is IV Cipro which did not realize was in water solution. Patient feeling well. Getting PICC line today. Review of Systems: denies headache/fever/chills/nausea/vomiting/chest or abdominal pain/cough/dyspnea/diarrhea. Otherwise see above. Constitutional Vitals: Vital Signs Temp Pulse Resp BP Pulse Ox 98.4 F 71 16 174/90 97 06/11/21 07:01 06/11/21 07:01 06/11/21 07:01 06/11/21 07:01 06/11/21 07:01 Period Temp Pulse Resp BP Sys/Hurtado Pulse Ox Last 24 Hr 97.6 F-98.7 F 67-80 16-20 145-174/86-103 95-100 Intake and Output 06/10/21 06/11/21 06/11/21 21:59 05:59 13:59 Intake Total 1160 Output Total 1350 1400 300 Balance -1350 -240 -300 Weight 106.005 kg Intake & Output: Intake & Output 06/10/21 06/11/21 06/11/21 21:59 05:59 13:59 Intake Total 1160 Output Total 1350 1400 300 Balance -1350 -240 -300 Weight 106.005 kg Intake: IV 200 Oral 960 Output: Void Amount 1350 1400 300 Other: Urine Appearance Clear Urine Color Light Cristel Dark Yellow Bright Yellow Urine Odor Normal Normal Exam: General: Alert, Awake, No acute Distress, obese Eyes/N/T: EOMI, Head/Neck: neck supple, CV: RRR, 1/6 SM, Pulm: Clear b/l, no wheezing/rhonchi/rales Abd: soft, nontender, +BS x4 Ext: no clubbing/cyanosis/edema, b/l feet with severe charcot deformities and b/l ulcerations in dressings Neuro: Alert, no focal deficits, moves all extremities, Skin: warm/dry OBJ DATA Labs CBC & Chem 7: 06/07/21 05:12 06/11/21 05:11 Labs: Abnormal Lab Results 06/11/21 06/10/21 06/09/21 05:11 05:25 15:34 Sodium 126 L 132 L 124 L Potassium Chloride 95 L 91 L Carbon Dioxide 17 L Creatinine 0.5 L 0.5 L 0.4 L Glucose 113 H Uric Acid Calcium 8.4 L 8.5 L Magnesium 1.5 L Total Bilirubin Direct Bilirubin 0.4 H GGT 420 H AST 43 H Alkaline Phosphatase 162 H Lactate Dehydrogenase Albumin 2.4 L Globulin 4.2 H Albumin/Globulin Ratio 0.6 L 06/09/21 06/08/21 05:25 05:26 Sodium 128 L 128 L Potassium 3.1 L Chloride 95 L 93 L Carbon Dioxide Creatinine 0.5 L 0.4 L Glucose Uric Acid 2.4 L 2.4 L Calcium 8.4 L Magnesium 1.4 L 1.3 L Total Bilirubin 1.3 H Direct Bilirubin 0.7 H 0.9 H GGT 348 H 250 H AST 46 H Alkaline Phosphatase 158 H 127 H Lactate Dehydrogenase 132 L Albumin 2.1 L 2.3 L Globulin 4.2 H Albumin/Globulin Ratio 0.5 L 0.6 L Meds: Medications Acetaminophen (Acetaminophen 325 Mg Tablet) 650 mg PO Q6HP PRN; Protocol PRN Reason: Per Pain Protocol/Fever > 101 Last Admin: 06/10/21 13:59 Dose: 650 mg Documented by: Albuterol/Ipratropium (Ipratropium/Albuterol 3 Ml Ampul.Neb) 3 ml NEB Q4HP PRN PRN Reason: Shortness Of Breath Bisoprolol Fumarate (Bisoprolol 5 Mg Tablet) 10 mg PO BID [facility] Last Admin: 06/10/21 20:36 Dose: 10 mg Documented by: Cefazolin Sodium (Cefazolin 1 Gm Vial) 2 gm IV Q8H [facility] Last Admin: 06/11/21 04:49 Dose: 2 gm Documented by: Heparin Sodium (Porcine) (Heparin 5,000 Unit/Ml Vial) 5,000 unit SQ Q12 [facility] Last Admin: 06/10/21 20:43 Dose: 5,000 unit Documented by: Heparin Sodium (Porcine) (Heparin Flush 10 Units/Ml 5 Ml Syringe) 2 ml IV Q12 [facility] Last Admin: 06/10/21 20:44 Dose: Not Given Documented by: Potassium Chloride 40 meq/ (Dextrose) 520 mls @ 130 mls/hr IV UD PRN PRN Reason: Potassium < 3 Last Infusion: 06/06/21 06:17 Dose: Infused Documented by: Magnesium Sulfate (Magnesium Sulfate) 2 gm in 50 mls @ 50 mls/hr IV UD PRN PRN Reason: Magnesium </= 1.6 Last Infusion: 06/10/21 10:19 Dose: Infused Documented by: Ciprofloxacin (Cipro) 400 mg in 200 mls @ 200 mls/hr IV Q12H [facility]; Protocol Last Infusion: 06/10/21 22:02 Dose: Infused Documented by: Labetalol HCl (Labetalol 5 Mg/Ml Ml) 0 mg IV Q2HP PRN PRN Reason: Hypertension Last Admin: 06/11/21 04:44 Dose: 10 mg Documented by: Lorazepam (Lorazepam 1 Mg Tablet) 2 mg PO HS [facility] Last Admin: 06/10/21 20:36 Dose: 2 mg Documented by: Losartan Potassium (Losartan 50 Mg Tablet) 100 mg PO 1600 [facility] Last Admin: 06/10/21 16:44 Dose: 100 mg Documented by: Metronidazole (Metronidazole 500 Mg Tablet) 500 mg PO Q8 [facility]; Protocol Last Admin: 06/11/21 04:49 Dose: 500 mg Documented by: Ondansetron HCl (Ondansetron 4 Mg/2 Ml Vial) 4 mg IV Q4HP PRN PRN Reason: Nausea And Vomiting Last Admin: 06/08/21 16:38 Dose: 4 mg Documented by: Potassium Chloride (Potassium Chloride 20 Meq Tablet) 40 meq PO UD PRN PRN Reason: Potssium is 3-3.5 Last Admin: 06/05/21 22:26 Dose: 40 meq Documented by: Potassium Chloride (Potassium Chloride 20 Meq Tablet) 40 meq PO UD PRN PRN Reason: Potassium < 3 Sodium Chloride (0.9 % Sodium Chloride 10 Ml Syringe) 10 ml IV Q8 [facility] Last Admin: 06/11/21 04:45 Dose: 10 ml Documented by: Sodium Chloride (0.9 % Sodium Chloride 10 Ml Syringe) 10 ml IV UD PRN PRN Reason: FLUSH Sodium Chloride (0.9 % Sodium Chloride 10 Ml Syringe) 10 ml IV Q12 [facility] Last Admin: 06/10/21 20:44 Dose: Not Given Documented by: Sodium Chloride (Sodium Chloride 1 Gm Tablet) 1 gm PO TID [facility] Last Admin: 06/10/21 20:36 Dose: 1 gm Documented by: A/P Narrative A/P Narrative: A: *Left foot infected ulcer: needs BKA -WC with Enteroboacter/Alcaligenes(MRDO)/Staph *Bacteremia(MSSA): source 2/2 above and probably osteo -no vegetations on TTE; repeat BC neg *SIRS: improved *b/l Severe Charcot foot deformities: Follows with Dr. Yu *Hyponatremia: 118 on admit. pt on HCTZ and volume depletion -Improved but worsened, suspect partially d/o cipro IV in water *Hypokalemia/mag: replete electrolytes *KATE: *HTN: On BB/ARB/HCTZ *Anxiety: *Obese: *Diarrhea: none since admit P: -Cefazolin/Cipro -d/c on cefazolin 2gm tid & PO Cipro 500mg bid Abx until amputation & 2-wks IV Cefazolin for MSSA bacteremia post amputation. -Dr. Hagan for Left BKA -fluid restrict, salt tabs -Continue home BB/ARB, stopped home HCTZ -PT/OT -ppx: heparin DNR Time Spent With Patient Time: Total time spent is greater than 50% in coordination of care (as documented) at patient's floor/unit and/or counseling patient: QUALITY VTE Deep Vein Thrombosis/Pulmonary Embolism Present on Admission: No
--- NOTE | 2021-06-11 08:51 | XRay Report ---
INDICATION: Verify PICC placement TECHNIQUE: AP portable chest x-ray COMPARISON: None FINDINGS:Left-sided PICC line with its tip in the superior vena cava. Lungs:Lungs are negative. No focal pulmonary parenchymal infiltrate or mass Heart, vascular:No significant cardiomegaly. Pulmonary vascularity is normal. No pulmonary edema or pulmonary congestion Mediastinum, anastasia:No mediastinal widening. No hilar mass Pleura:No pleural fluid. No pleural-based mass or calcification Skeletal:Negative. IMPRESSION: Left-sided PICC line in the superior vena cava Interpreted and Authenticated by: Zhao Jones 06/11/21
[2021-06-11] MEDS ORDERED: MAGNESIUM SULFATE 8.12 MEQ in DEXTROSE 5% IN WATER 50 ML IV ONE (09:35)
[2021-06-11] MEDS: CIPROFLOXACIN 500 MG TABLET PO SCH ×2 (09:52→21:20)
[2021-06-11] MEDS: SODIUM CHLORIDE 1 GM TABLET PO SCH ×3 (09:52→21:20)
[2021-06-11] MEDS: BISOPROLOL 5 MG TABLET PO SCH ×2 (09:53→21:20)
[2021-06-11] MEDS: HEPARIN 5,000 UNIT/ML VIAL SQ SCH ×2 (10:50→21:22)
[2021-06-11 11:41] LABS: Urea Nitrogen, Urine 457 mg/dL
--- NOTE | 2021-06-11 12:47 | Internal Med Progress Note ---
SUBJECTIVE Subjective Patient information: Note initiated : 06/12/21 at 12:44 pm Service Date, if different from initiated Date: [] Patient: aNga Simeon 56 y/o M admitted on 06/05/21 for fever, runny nose. Chief Complaint: [] Interval history: History of present illness: Mr. Simeon is a 56 year old M Presents to ED with 10-day history of fevers as well as a mild occasional cough, minimal shortness of breath and diarrhea that started today. Patient feels like he is developing a worsening infection of his left foot after one of his friends looked at his foot today and thought it was getting worse. He has seen Dr. Yu for this outpatient. Work-up in the ED included labs showed a mild leukocytosis. He had hyponatremia of 118 and is on hydrochlorothiazide. But pt also drinks about a gallon of H2o a day, of note he is 100kg. Potassium little low acute kidney injury noted. Lactate okay. Left foot x-ray done. ESR pending. Exam in the ED of the foot malodorous. Dr. Yu will be consulted from ED. 06/05 Afebrile overnight. T-max 99.7 last night. No new complaints. Awaiting follow-up labs. Gram-positive cocci in clusters in both bottles of 1 set. Echo pending. MRI of the foot ordered and podiatry consulted. 06/07 Patient doing well. Sodium improving. No overnight events. No new complaints. N.p.o. 06/08 Feeling well today's. No overnight event or new complaints. Sodium improved. Mild hypokalemia. Hypomagnesemia Awaiting surgery date. Possible discharge tomorrow if SNF will take him on Friday and blood cultures remain negative by tomorrow. 06/09 No overnight event or new complaints. Sodium low but stable. Placed on fluid restrict salt tabs. Magnesium low will replete. Wound culture with multidrug-resistant organism Alcaligenes. 06/10 Patient feeling well. No complaints. 06/11 Doing well. Sodium dropped today. Suspect that partial component is IV Cipro which did not realize was in water solution. Patient feeling well. Getting PICC line today. 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 Physical exam Head: Atraumatic, normal inspection. Eyes: normal appearance, no scleral icterus. Neck: full ROM Respiratory: no respiratory distress. Cardiovascular: normal rate and rhythm, S1, S2. GI/Abdominal: soft, nontender, no guarding. Extremities: left BKA, right charcot foot deformity, right foot covered with clean bandage Neurological: CN II-XII intact, intact motor, intact sensation. Psychiatric: normal mood. Skin: warm, normal color Constitutional Vitals: Vital Signs Temp Pulse Resp BP Pulse Ox 98.4 F 72 14 136/87 95 06/11/21 12:25 06/11/21 12:25 06/11/21 12:25 06/11/21 12:25 06/11/21 12:25 Period Temp Pulse Resp BP Sys/Hurtado Pulse Ox Last 24 Hr 98.0 F-98.7 F 71-80 14-20 136-174/86-103 95-100 Intake and Output 06/10/21 06/11/21 06/11/21 21:59 05:59 13:59 Intake Total 1160 50 Output Total 1350 1400 1190 Balance -1350 -240 -1140 Weight 106.005 kg Intake & Output: Intake & Output 06/10/21 06/11/21 06/11/21 21:59 05:59 13:59 Intake Total 1160 50 Output Total 1350 1400 1190 Balance -1350 -240 -1140 Weight 106.005 kg Intake: IV 200 50 Oral 960 Output: Void Amount 1350 1400 1190 Other: Urine Appearance Clear Urine Color Light Cristel Dark Yellow Bright Yellow Urine Odor Normal Normal Stool Size Moderate Stool Color Brown Stool Consistency Soft # Bowel Movements 1 OBJ DATA Labs CBC & Chem 7: 06/12/21 07:49 06/12/21 07:49 Labs: Abnormal Lab Results 06/11/21 06/10/21 06/09/21 05:11 05:25 15:34 Sodium 126 L 132 L 124 L Chloride 95 L 91 L Carbon Dioxide 17 L Creatinine 0.5 L 0.5 L 0.4 L Glucose 113 H Uric Acid Calcium 8.4 L 8.5 L Magnesium 1.5 L Direct Bilirubin 0.4 H GGT 420 H AST 43 H Alkaline Phosphatase 162 H Albumin 2.4 L Globulin 4.2 H Albumin/Globulin Ratio 0.6 L 06/09/21 05:25 Sodium 128 L Chloride 95 L Carbon Dioxide Creatinine 0.5 L Glucose Uric Acid 2.4 L Calcium Magnesium 1.4 L Direct Bilirubin 0.7 H GGT 348 H AST 46 H Alkaline Phosphatase 158 H Albumin 2.1 L Globulin 4.2 H Albumin/Globulin Ratio 0.5 L Meds: Medications Acetaminophen (Acetaminophen 325 Mg Tablet) 650 mg PO Q6HP PRN; Protocol PRN Reason: Per Pain Protocol/Fever > 101 Last Admin: 06/10/21 13:59 Dose: 650 mg Documented by: Albuterol/Ipratropium (Ipratropium/Albuterol 3 Ml Ampul.Neb) 3 ml NEB Q4HP PRN PRN Reason: Shortness Of Breath Bisoprolol Fumarate (Bisoprolol 5 Mg Tablet) 10 mg PO BID [facility] Last Admin: 06/11/21 09:53 Dose: 10 mg Documented by: Cefazolin Sodium (Cefazolin 1 Gm Vial) 2 gm IV Q8H [facility] Last Admin: 06/11/21 04:49 Dose: 2 gm Documented by: Ciprofloxacin (Ciprofloxacin 500 Mg Tablet) 500 mg PO BID [facility] Last Admin: 06/11/21 09:52 Dose: 500 mg Documented by: Heparin Sodium (Porcine) (Heparin 5,000 Unit/Ml Vial) 5,000 unit SQ Q12 [facility] Last Admin: 06/11/21 10:50 Dose: 5,000 unit Documented by: Heparin Sodium (Porcine) (Heparin Flush 10 Units/Ml 5 Ml Syringe) 2 ml IV Q12 [facility] Last Admin: 06/11/21 09:13 Dose: 2 ml Documented by: Potassium Chloride 40 meq/ (Dextrose) 520 mls @ 130 mls/hr IV UD PRN PRN Reason: Potassium < 3 Last Infusion: 06/06/21 06:17 Dose: Infused Documented by: Magnesium Sulfate (Magnesium Sulfate) 2 gm in 50 mls @ 50 mls/hr IV UD PRN PRN Reason: Magnesium </= 1.6 Last Infusion: 06/10/21 10:19 Dose: Infused Documented by: Labetalol HCl (Labetalol 5 Mg/Ml Ml) 0 mg IV Q2HP PRN PRN Reason: Hypertension Last Admin: 06/11/21 10:23 Dose: 10 mg Documented by: Lorazepam (Lorazepam 1 Mg Tablet) 2 mg PO HS [facility] Last Admin: 06/10/21 20:36 Dose: 2 mg Documented by: Losartan Potassium (Losartan 50 Mg Tablet) 100 mg PO 1600 [facility] Last Admin: 06/10/21 16:44 Dose: 100 mg Documented by: Metronidazole (Metronidazole 500 Mg Tablet) 500 mg PO Q8 [facility]; Protocol Last Admin: 06/11/21 04:49 Dose: 500 mg Documented by: Ondansetron HCl (Ondansetron 4 Mg/2 Ml Vial) 4 mg IV Q4HP PRN PRN Reason: Nausea And Vomiting Last Admin: 06/08/21 16:38 Dose: 4 mg Documented by: Potassium Chloride (Potassium Chloride 20 Meq Tablet) 40 meq PO UD PRN PRN Reason: Potssium is 3-3.5 Last Admin: 06/05/21 22:26 Dose: 40 meq Documented by: Potassium Chloride (Potassium Chloride 20 Meq Tablet) 40 meq PO UD PRN PRN Reason: Potassium < 3 Sodium Chloride (0.9 % Sodium Chloride 10 Ml Syringe) 10 ml IV Q8 [facility] Last Admin: 06/11/21 04:45 Dose: 10 ml Documented by: Sodium Chloride (0.9 % Sodium Chloride 10 Ml Syringe) 10 ml IV UD PRN PRN Reason: FLUSH Sodium Chloride (0.9 % Sodium Chloride 10 Ml Syringe) 10 ml IV Q12 [facility] Last Admin: 06/11/21 10:49 Dose: 10 ml Documented by: Sodium Chloride (Sodium Chloride 1 Gm Tablet) 1 gm PO TID [facility] Last Admin: 06/11/21 09:52 Dose: 1 gm Documented by: A/P Narrative A/P Narrative: Assessment: 56-year-old male with hypertension, anxiety, obesity, Charcot foot deformities admitted for a left foot infected ulcer complicated by MSSA bacteremia, and acute kidney injury. Patient was also severely hyponatremic on admission. *Left foot infected ulcer s/p BKA 06/12/21 -WC with Enteroboacter/Alcaligenes(MRDO)/Staph *Bacteremia(MSSA): source 2/2 above and probably osteo -no vegetations on TTE; repeat BC neg *SIRS: improved *b/l Severe Charcot foot deformities: Follows with Dr. Yu *Hyponatremia: 118 on admit. pt on HCTZ and volume depletion *resolved KATE: *HTN: On BB/ARB/HCTZ *Anxiety: *Obese: P: -Cefazolin 2gm IV Q8 hrs via PICC for MSSA bacteremia, plan to treat 2 weeks post BKA. -Discontinue Ciprofloxacin not that souce of infection removed via BKA. -Dr. Hagan for Left BKA -fluid restrict, salt tabs, follow sodium -Continue home BB/ARB, stopped home HCTZ -PT/OT -ppx: heparin DNR Time Spent With Patient Time: Total time spent is greater than 50% in coordination of care (as documented) at patient's floor/unit and/or counseling patient: QUALITY VTE Deep Vein Thrombosis/Pulmonary Embolism Present on Admission: No
[2021-06-11] MEDS: ONDANSETRON 4 MG/2 ML VIAL IV PRN (14:55)
[2021-06-11] MEDS: LOSARTAN 50 MG TABLET PO SCH (15:50)
[2021-06-11] MEDS: ACETAMINOPHEN 325 MG TABLET PO PRN (19:01)
[2021-06-11] MEDS: LORazepam 1 MG TABLET PO SCH (21:20)
[2021-06-12] MEDS: LABETALOL 5 MG/ML ML IV PRN ×3 (00:10→21:33)
[2021-06-12] MEDS: ceFAZolin 1 GM VIAL IV SCH ×3 (06:37→21:33)
[2021-06-12] MEDS: metroNIDAZOLE 500 MG TABLET PO SCH ×4 (06:38→21:31)
[2021-06-12] MEDS: 0.9 % SODIUM CHLORIDE 10 ML SYRINGE IV SCH ×5 (06:39→22:30)
--- NOTE | 2021-06-12 08:18 | XRay Report ---
INDICATION: abdominal pain TECHNIQUE: Supine abdomen. COMPARISON: Previous CT scan dated 05/02/2014 FINDINGS:There is gas and fecal material within the colon. There is small bowel gas without significant dilatation. Bowel gas pattern is nonspecific. No evidence for significant mechanical small bowel obstruction. There is no pneumoperitoneum demonstrated although an upright image was not obtained. No pneumatosis. No biliary or portal venous gas. There are multiple surgical clips in the right lower quadrant IMPRESSION: Nonspecific bowel gas pattern as above. No evidence for significant mechanical small bowel obstruction Interpreted and Authenticated by: Zhao Jones 06/12/21
[2021-06-12] MEDS: SODIUM CHLORIDE 1 GM TABLET PO SCH ×3 (08:29→21:31)
[2021-06-12] MEDS: HEPARIN 5,000 UNIT/ML VIAL SQ SCH ×2 (08:30→21:40)
[2021-06-12] MEDS: BISOPROLOL 5 MG TABLET PO SCH ×2 (08:30→21:30)
[2021-06-12] MEDS: CIPROFLOXACIN 500 MG TABLET PO SCH (08:30)
[2021-06-12] MEDS ORDERED: SCOPOLAMINE 1 PATCH PATCH TOPICAL PRN (08:38)
[2021-06-12 08:40] LABS: Blood Urea Nitrogen 9 mg/dL (6-20); Calcium 8.6 mg/dL (8.6-10.4); Carbon Dioxide 21 mmol/L (22-30); Chloride 96 mmol/L (96-108); Glomerular Filtration Rate 122; Glucose 117 mg/dL (70-105)
[2021-06-12 08:50] LABS: Basophils # (Auto) 0.03 K/mcL (0.00-0.30); Basophils % (Auto) 0.6 % (0.0-2.0); Eosinophils # (Auto) 0.09 K/mcL (0.00-0.70); Eosinophils % (Auto) 1.8 % (0.0-7.0); Hematocrit 33.1 % (40.1-51.0); Hemoglobin 11.6 g/dL (13.7-17.5); Lymphocytes # (Auto) 0.87 K/mcL (1.50-4.80); Lymphocytes % (Auto) 17.5 % (15.5-49.0); Mean Cell Volume 93.8 fL (80.0-100.0); Mean Platelet Volume 8.7 fL (7.4-10.4); Monocytes # (Auto) 0.58 K/mcL (0.10-0.90); Monocytes % (Auto) 11.7 % (1.0-12.0); Neutrophils % (Auto) 68.4 % (38.0-78.0); Platelet Count 412 K/mcL (140-440); RBC 3.53 M/mcL (4.63-6.08); Red Cell Distribution Width 12.8 % (11.5-14.5)
[2021-06-12] MEDS ORDERED: PHENYLephrine 1 MG/10 ML SYRINGE (ANEST) ONE (13:18)
[2021-06-12] MEDS ORDERED: PROPOFOL 200 MG/20 ML VIAL IV ONE (13:18)
[2021-06-12] MEDS ORDERED: MIDAZOLAM 2 MG/2 ML VIAL ONE (13:18)
[2021-06-12] MEDS ORDERED: HYDROmorphone 1 MG/ML SYRINGE ONE (13:18)
[2021-06-12] MEDS ORDERED: LIDOCAINE HCL/PF 100 MG/5 ML SYRINGE IV ONE (13:18)
[2021-06-12] MEDS ORDERED: GLYCOPYRROLATE 0.2 MG/ML VIAL IV ONE (13:18)
[2021-06-12] MEDS ORDERED: ROPIVACAINE HCL/PF 30 ML VIAL IJ ONE (13:18)
[2021-06-12] MEDS ORDERED: MAGNESIUM SULFATE 2 GM/50 ML BAG IV ONE (13:18)
[2021-06-12] MEDS ORDERED: KETAMINE 50 MG/ML Syringe (ANEST) IV ONE (13:18)
[2021-06-12] MEDS ORDERED: ONDANSETRON 4 MG/2 ML VIAL ONE (13:18)
[2021-06-12] MEDS ORDERED: DEXAMETHASONE 10 MG/ML VIAL ONE (13:18)
[2021-06-12] MEDS ORDERED: TRANEXAMIC ACID 1,000 MG/10 ML VIAL ONE (13:18)
[2021-06-12] MEDS ORDERED: ePHEDrine 50 MG/5 ML SYRINGE (ANEST) IV ONE (13:18)
[2021-06-12] MEDS ORDERED: LIDOCAINE 2% 20 ML VIAL ONE (13:18)
[2021-06-12] MEDS ORDERED: fentaNYL 100 MCG/2 ML VIAL IV ONE (13:18)
[2021-06-12] MEDS ORDERED: LIDOCAINE 2% 20 ML VIAL SQ ONE (14:04)
[2021-06-12] MEDS ORDERED: METHOCARBAMOL 1,000 MG/10 ML VIAL IV PRN (14:32)
[2021-06-12] MEDS ORDERED: BENZOCAINE/MENTHOL 1 LOZENGE PO PRN (14:32)
[2021-06-12] MEDS ORDERED: IPRATROPIUM/ALBUTEROL 3 ML AMPUL.NEB NEB PRN (14:32)
[2021-06-12] MEDS ORDERED: ACETAMINOPHEN 1,000 MG/100 ML BAG IV ONE (14:32)
[2021-06-12] MEDS ORDERED: MEPERIDINE 25 MG/ML VIAL IV PRN (14:32)
[2021-06-12] MEDS ORDERED: METOCLOPRAMIDE 10 MG/2 ML VIAL IV PRN (14:32)
--- NOTE | 2021-06-12 14:36 | Brief Operative Note ---
Brief Operative Note Date of procedure: 06/12/21 Pre-op diagnosis: Severe Charcot left foot collapse with chronic wounds and re sultant sepsis Post-op diagnosis: same Procedure: Right transtibial below knee amputation Grafts/Implants: No Anesthesia: GLMA Findings: severe foot deformity with multiple open infected wounds Complications: none Surgeon: Giancarlo Hagan It Technical Specialist: Marquise Taylor Estimated blood loss (cc): 100 Specimens Removed/Pathology: other (foot-discarded) Condition: stable Disposition: PACU
[2021-06-12] MEDS: fentaNYL 100 MCG/2 ML VIAL IV PRN ×6 (15:30→16:00)
[2021-06-12] MEDS ORDERED: LORazepam 2 MG/ML VIAL IV ONE (15:46)
[2021-06-12] MEDS ORDERED: LORazepam 2 MG/ML VIAL ONE (15:54)
--- NOTE | 2021-06-12 16:01 | XRay Report ---
INDICATION: post op BKA TECHNIQUE: AP and crosstable lateral left knee COMPARISON: None. FINDINGS: Status post left below knee amputation. Normal appearing tibial and fibular stumps. There is soft tissue coverage. There is minimal postoperative soft tissue gas IMPRESSION: Left below knee amputation Interpreted and Authenticated by: Zhao Jones 06/12/21
[2021-06-12] MEDS ORDERED: hydrALAZINE 20 MG/ML VIAL IV ONE (16:43)
[2021-06-12] MEDS ORDERED: hydrALAZINE 20 MG/ML VIAL ONE (16:47)
[2021-06-12] MEDS: LOSARTAN 50 MG TABLET PO SCH (17:24)
[2021-06-12] MEDS: HYDROcodone/APAP 10/325MG TABLET PO PRN (20:11)
[2021-06-12] MEDS: LORazepam 1 MG TABLET PO SCH (21:31)
[2021-06-13] MEDS: LABETALOL 5 MG/ML ML IV PRN (01:00)
[2021-06-13] MEDS: HYDROcodone/APAP 10/325MG TABLET PO PRN ×3 (03:38→21:45)
[2021-06-13] MEDS: ceFAZolin 1 GM VIAL IV SCH ×3 (05:56→21:46)
[2021-06-13] MEDS: metroNIDAZOLE 500 MG TABLET PO SCH ×3 (05:56→21:46)
--- NOTE | 2021-06-13 08:15 | Operative Note ---
DATE OF OPERATION: 06/12/2021 PREOPERATIVE DIAGNOSIS: Severe left foot deformity secondary to Charcot foot with subsequent chronic wounds and infection. POSTOPERATIVE DIAGNOSIS: Severe left foot deformity secondary to Charcot foot with subsequent chronic wounds and infection. PROCEDURE PERFORMED: Left transtibial below-knee amputation. SURGEON: Giancarlo Hagan M.D. BAKING POWDER MIXER: Marquise Taylor PA-C. This providers expertise and technical skill were required throughout the case. The PA assisted with preoperative coordination, intraoperative retraction, wound closure, and dressing and splint application, as well as postoperative documentation and care coordination. ANESTHESIA: General. DRAINS: None. SPECIMENS: Removed foot, which was discarded. ESTIMATED BLOOD LOSS: 150 mL. COMPLICATIONS: None. POSTOPERATIVE CONDITION: Stable. INDICATIONS FOR SURGERY: This is a 56-year-old male who has had longstanding foot deformity, being followed by Podiatry. He has had nonhealing wounds to the foot, which recently caused him to become septic and his surgeon chief recommended below-knee amputation. FINDINGS AT SURGERY: Severe foot deformity with nonhealing wounds. Post-procedure showed good stump coverage. PROCEDURE IN DETAIL: The patient had been seen preoperatively and informed consent had been obtained after discussion of risks and benefits of surgery. Risks including, but not limited to, bleeding; infection; injury to nerves, blood vessels, other surrounding structures, anesthetic risks; and the possibility of a neuroma or a painful stump, possibility of needing a revision amputation. He understood these risks and wished to proceed. Correct operative site was marked and the patient was taken to the operating room. General anesthesia induced. Left lower extremity was carefully prepped and draped in normal sterile fashion. A timeout was performed verifying patient name, operative site, and plan. I measured approximately 15 cm from the joint line and made a savanna for our tibial cut. We then used a marking pen and marked out our proposed incision with a long posterior flap. We then used the Esmarch to exsanguinate the extremity, and tourniquet was inflated to 300 mmHg. A scalpel was used to cut through skin and subcutaneous tissue along our proposed markings. Hemostasis was obtained with Bovie cautery. I then started cutting through the anterior compartment and then identified the neurovascular bundle and the peroneal nerve and artery. The vascular bundle was dissected and then tied off with 2 silk sutures and then cut with Bovie and the tip cauterized. The deep peroneal nerve was identified and dissected proximally. I injected some local anesthetic, 1% lidocaine around the nerve proximally and then used traction with a Bovie to slowly cauterize through the nerve and allowed it to retract proximally. We then came down onto the interosseous membrane. We released this off the tibia and the fibula. I identified my proximal tibial cut level and then made our fibular cut 1-2 cm proximal to that. We then placed Mcclelland retractors around the tibia and then the oscillating saw was used to make our tibia cut. I then used a long amputation knife to cut from behind the tibia distally down to our end of our flaps and then the leg was removed and passed off for disposal. I identified the posterior neurovascular bundle, the tibial artery and nerve. The vascular bundle was dissected again and two silk sutures tied and then the end of it cut. We also then again dissected the tibial nerve proximally and then injected lidocaine 1% around it proximally and then holding traction using the Bovie, I slowly cauterized through the nerve, allowing it to retract proximally. Once this was done, we released tourniquet. Bleeders were identified and coagulated. Once we had adequate hemostasis, I then made some further prep to the tibia, making a small cut anteriorly, making sure this did not come out in the cancellous bone. I also slightly chamfered the sharp edges all the way around with a saw. Rongeur was also used to take some of the sharp edges off of the lateral edge of the fibula. Once this was completed, I made two drill holes in the anterior tibia exiting out the cancellous bone distally and then we irrigated IrriSept, after a minute, irrigated copiously with saline, and then #2 FiberWire was passed through the tibial bone tunnels through the tendinous structures of the posterior flap and then a second pass through the tibia through the second drill hole and then a second pass through the posterior tendinous structures. We then pulled the muscle up to the tibia and tied this in a [id number]. I placed one more [id number] end to end with the soft tissues anteriorly and then a Stratafix suture was used to close in a running stitch the posterior musculature to the anterior musculature running side to side. Once this was completed, we then used a 2-0 Monocryl for subcutaneous and then mark for skin. Xeroform and a sterile dressing were applied. The leg was placed in a splint and then patient was awakened, extubated, and transferred to recovery in stable condition. [email or web address]:dk Job ID: [id number] Doc ID: [id number] Giancarlo Hagan MD
[2021-06-13] MEDS: SODIUM CHLORIDE 1 GM TABLET PO SCH ×3 (09:26→20:29)
[2021-06-13] MEDS: BISOPROLOL 5 MG TABLET PO SCH ×2 (09:26→20:29)
[2021-06-13] MEDS: HEPARIN 5,000 UNIT/ML VIAL SQ SCH ×2 (09:26→20:29)
[2021-06-13] MEDS: 0.9 % SODIUM CHLORIDE 10 ML SYRINGE IV SCH ×2 (09:31→19:49)
[2021-06-13] MEDS: HYDROmorphone 0.5 MG/0.5 ML SYRINGE IV PRN ×3 (11:54→19:49)
[2021-06-13 12:00] LABS: Blood Urea Nitrogen 12 mg/dL (6-20); Calcium 8.4 mg/dL (8.6-10.4); Carbon Dioxide 21 mmol/L (22-30); Chloride 95 mmol/L (96-108); Glomerular Filtration Rate 113; Glucose 178 mg/dL (70-105)
[2021-06-13] MEDS: LOSARTAN 50 MG TABLET PO SCH (15:35)
--- NOTE | 2021-06-13 15:55 | Internal Med Progress Note ---
SUBJECTIVE Subjective Patient information: Note initiated : 06/13/21 at 3:53 pm Service Date, if different from initiated Date: [] Patient: Naga Simeon 56 y/o M admitted on 06/05/21 for fever, runny nose. Chief Complaint: [] Interval history: History of present illness: Mr. Simeon is a 56 year old M Presents to ED with 10-day history of fevers as well as a mild occasional cough, minimal shortness of breath and diarrhea that started today. Patient feels like he is developing a worsening infection of his left foot after one of his friends looked at his foot today and thought it was getting worse. He has seen Dr. Yu for this outpatient. Work-up in the ED included labs showed a mild leukocytosis. He had hyponatremia of 118 and is on hydrochlorothiazide. But pt also drinks about a gallon of H2o a day, of note he is 100kg. Potassium little low acute kidney injury noted. Lactate okay. Left foot x-ray done. ESR pending. Exam in the ED of the foot malodorous. Dr. Yu will be consulted from ED. 06/05 Afebrile overnight. T-max 99.7 last night. No new complaints. Awaiting follow-up labs. Gram-positive cocci in clusters in both bottles of 1 set. Echo pending. MRI of the foot ordered and podiatry consulted. 06/07 Patient doing well. Sodium improving. No overnight events. No new complaints. N.p.o. 06/08 Feeling well today's. No overnight event or new complaints. Sodium improved. Mild hypokalemia. Hypomagnesemia Awaiting surgery date. Possible discharge tomorrow if SNF will take him on Friday and blood cultures remain negative by tomorrow. 06/09 No overnight event or new complaints. Sodium low but stable. Placed on fluid restrict salt tabs. Magnesium low will replete. Wound culture with multidrug-resistant organism Alcaligenes. 06/10 Patient feeling well. No complaints. 06/11 Doing well. Sodium dropped today. Suspect that partial component is IV Cipro which did not realize was in water solution. Patient feeling well. Getting PICC line today. 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 06/13 Requiring IV dilaudid for pain, otherwise doing ok. Sodium slightly improved at 127. Looking into SNF options for discharge. Physical exam Head: Atraumatic, normal inspection. Eyes: normal appearance, no scleral icterus. Neck: full ROM Respiratory: no respiratory distress. Cardiovascular: normal rate and rhythm, S1, S2. GI/Abdominal: soft, nontender, no guarding. Extremities: left BKA, right charcot foot deformity, right foot covered with clean bandage Neurological: CN II-XII intact, intact motor, intact sensation. Psychiatric: normal mood. Skin: warm, normal color Constitutional Vitals: Vital Signs Temp Pulse Resp BP Pulse Ox 98 F 75 18 111/63 96 06/13/21 15:27 06/13/21 15:27 06/13/21 15:27 06/13/21 15:27 06/13/21 15:27 Period Temp Pulse Resp BP Sys/Hurtado Pulse Ox Last 24 Hr 96.7 F-98.7 F 64-92 11-29 109-203/59-109 94-99 Intake and Output 06/13/21 06/13/21 06/13/21 05:59 13:59 21:59 Intake Total 1220 240 Output Total 350 Balance 1220 -110 Weight 104.099 kg Patient Weight 06/14/21 05:59 Weight 104.099 kg Intake & Output: Intake & Output 06/13/21 06/13/21 06/13/21 05:59 13:59 21:59 Intake Total 1220 240 Output Total 350 Balance 1220 -110 Weight 104.099 kg Intake: Nourishment/Supplement quantity 240 (ml) Oral 1220 Output: Void Amount 350 Other: Meal Nourishment/Supplement Percent of Meal Consumed 100% Feeding Ability Independent Urine Appearance Clear Urine Color Dark Yellow Urine Odor Normal OBJ DATA Labs CBC & Chem 7: 06/12/21 07:49 06/13/21 10:56 Labs: Abnormal Lab Results 06/13/21 06/12/21 06/12/21 10:56 07:49 07:49 RBC 3.53 L Hgb 11.6 L Hct 33.1 L Lymph # (Auto) 0.87 L Sodium 127 L 126 L Chloride 95 L Carbon Dioxide 21 L 21 L Creatinine 0.6 L 0.5 L Glucose 178 H 117 H Calcium 8.4 L 06/11/21 06/11/21 13:30 05:11 RBC Hgb Hct Lymph # (Auto) Sodium 126 L 126 L Chloride 95 L Carbon Dioxide 17 L Creatinine 0.5 L Glucose Calcium 8.4 L Meds: Medications Acetaminophen (Acetaminophen 325 Mg Tablet) 650 mg PO Q6HP PRN; Protocol PRN Reason: Per Pain Protocol/Fever > 101 Last Admin: 06/11/21 19:01 Dose: 650 mg Documented by: Hydrocodone Bitart/Acetaminophen (Hydrocodone/Apap 10/325mg Tablet) 1 - 2 tab PO Q6HP PRN; Protocol PRN Reason: Per Pain Protocol Last Admin: 06/13/21 10:44 Dose: 2 tab Documented by: Albuterol/Ipratropium (Ipratropium/Albuterol 3 Ml Ampul.Neb) 3 ml NEB Q4HP PRN PRN Reason: Shortness Of Breath Bisoprolol Fumarate (Bisoprolol 5 Mg Tablet) 10 mg PO BID [facility] Last Admin: 06/13/21 09:26 Dose: 10 mg Documented by: Cefazolin Sodium (Cefazolin 1 Gm Vial) 2 gm IV Q8H [facility] Last Admin: 06/13/21 15:28 Dose: 2 gm Documented by: Heparin Sodium (Porcine) (Heparin 5,000 Unit/Ml Vial) 5,000 unit SQ Q12 [facility] Last Admin: 06/13/21 09:26 Dose: 5,000 unit Documented by: Heparin Sodium (Porcine) (Heparin Flush 10 Units/Ml 5 Ml Syringe) 2 ml IV Q12 [facility] Last Admin: 06/13/21 09:27 Dose: 2 ml Documented by: Hydromorphone HCl (Hydromorphone 0.5 Mg/0.5 Ml Syringe) 0.5 mg IV Q2HP PRN; Protocol PRN Reason: Per Pain Protocol Last Admin: 06/13/21 15:29 Dose: 0.5 mg Documented by: Potassium Chloride 40 meq/ (Dextrose) 520 mls @ 130 mls/hr IV UD PRN PRN Reason: Potassium < 3 Last Infusion: 06/06/21 06:17 Dose: Infused Documented by: Magnesium Sulfate (Magnesium Sulfate) 2 gm in 50 mls @ 50 mls/hr IV UD PRN PRN Reason: Magnesium </= 1.6 Last Infusion: 06/10/21 10:19 Dose: Infused Documented by: Labetalol HCl (Labetalol 5 Mg/Ml Ml) 0 mg IV Q2HP PRN PRN Reason: Hypertension Last Admin: 06/13/21 01:00 Dose: 20 mg Documented by: Lorazepam (Lorazepam 1 Mg Tablet) 2 mg PO HS [facility] Last Admin: 06/12/21 21:31 Dose: 2 mg Documented by: Losartan Potassium (Losartan 50 Mg Tablet) 100 mg PO 1600 [facility] Last Admin: 06/13/21 15:35 Dose: 100 mg Documented by: Metronidazole (Metronidazole 500 Mg Tablet) 500 mg PO Q8 [facility]; Protocol Last Admin: 06/13/21 15:26 Dose: 500 mg Documented by: Ondansetron HCl (Ondansetron 4 Mg/2 Ml Vial) 4 mg IV Q4HP PRN PRN Reason: Nausea And Vomiting Last Admin: 06/11/21 14:55 Dose: 4 mg Documented by: Potassium Chloride (Potassium Chloride 20 Meq Tablet) 40 meq PO UD PRN PRN Reason: Potssium is 3-3.5 Last Admin: 06/05/21 22:26 Dose: 40 meq Documented by: Potassium Chloride (Potassium Chloride 20 Meq Tablet) 40 meq PO UD PRN PRN Reason: Potassium < 3 Scopolamine (Scopolamine 1 Patch Patch) 1 patch TOPICAL PREOP PRN PRN Reason: Nausea And Vomiting Sodium Chloride (0.9 % Sodium Chloride 10 Ml Syringe) 10 ml IV UD PRN PRN Reason: FLUSH Sodium Chloride (0.9 % Sodium Chloride 10 Ml Syringe) 10 ml IV Q12 [facility] Last Admin: 06/13/21 09:31 Dose: 10 ml Documented by: Sodium Chloride (Sodium Chloride 1 Gm Tablet) 1 gm PO TID [facility] Last Admin: 06/13/21 15:26 Dose: 1 gm Documented by: A/P Narrative A/P Narrative: Assessment: 56-year-old male with hypertension, anxiety, obesity, Charcot foot deformities admitted for a left foot infected ulcer complicated by MSSA bacteremia, and acute kidney injury. Patient was also severely hyponatremic on admission. *Left foot infected ulcer s/p BKA 06/12/21 -WC with Enteroboacter/Alcaligenes(MRDO)/Staph *Bacteremia(MSSA): source 2/2 above and probably osteo -no vegetations on TTE; repeat BC neg *SIRS: improved *b/l Severe Charcot foot deformities: Follows with Dr. Yu *Hyponatremia: 118 on admit, now improved. 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 *resolved KATE: *HTN: On BB/ARB/HCTZ *Anxiety: *Obese: P: -Cefazolin 2gm IV Q8 hrs via PICC for MSSA bacteremia, plan to treat 2 weeks post BKA. -Analgesics prn. -fluid restrict, salt tabs, follow sodium -Continue home BB/ARB, stopped home HCTZ -PT/OT -ppx: heparin -DNR -disposition: SNF, follow up with ortho. Time Spent With Patient Time: Total time spent is greater than 50% in coordination of care (as documented) at patient's floor/unit and/or counseling patient: QUALITY VTE Deep Vein Thrombosis/Pulmonary Embolism Present on Admission: No
[2021-06-13] MEDS: LORazepam 1 MG TABLET PO SCH (20:29)
[2021-06-14] MEDS: HYDROmorphone 0.5 MG/0.5 ML SYRINGE IV PRN ×4 (02:38→19:11)
[2021-06-14] MEDS: HYDROcodone/APAP 10/325MG TABLET PO PRN (03:56)
[2021-06-14] MEDS: metroNIDAZOLE 500 MG TABLET PO SCH (05:22)
[2021-06-14] MEDS: ceFAZolin 1 GM VIAL IV SCH ×3 (05:23→21:09)
[2021-06-14] MEDS: HEPARIN 5,000 UNIT/ML VIAL SQ SCH ×2 (08:20→21:09)
[2021-06-14] MEDS: SODIUM CHLORIDE 1 GM TABLET PO SCH ×3 (08:20→21:10)
[2021-06-14] MEDS: BISOPROLOL 5 MG TABLET PO SCH ×2 (08:20→21:10)
[2021-06-14] MEDS: 0.9 % SODIUM CHLORIDE 10 ML SYRINGE IV SCH ×3 (08:24→21:09)
[2021-06-14] MEDS: ACETAMINOPHEN 325 MG TABLET PO SCH ×2 (10:25→17:38)
[2021-06-14] MEDS: oxyCODONE HCL 5 MG TABLET PO PRN ×3 (10:29→23:33)
[2021-06-14] MEDS: ONDANSETRON 4 MG/2 ML VIAL IV PRN (12:19)
--- NOTE | 2021-06-14 15:21 | Internal Med Progress Note ---
SUBJECTIVE Subjective Patient information: Note initiated : 06/14/21 at 3:19 pm Service Date, if different from initiated Date: [] Patient: Naga Simeon 56 y/o M admitted on 06/05/21 for fever, runny nose. Chief Complaint: [] Interval history: History of present illness: Mr. Simeon is a 56 year old M Presents to ED with 10-day history of fevers as well as a mild occasional cough, minimal shortness of breath and diarrhea that started today. Patient feels like he is developing a worsening infection of his left foot after one of his friends looked at his foot today and thought it was getting worse. He has seen Dr. Yu for this outpatient. Work-up in the ED included labs showed a mild leukocytosis. He had hyponatremia of 118 and is on hydrochlorothiazide. But pt also drinks about a gallon of H2o a day, of note he is 100kg. Potassium little low acute kidney injury noted. Lactate okay. Left foot x-ray done. ESR pending. Exam in the ED of the foot malodorous. Dr. Yu will be consulted from ED. 06/05 Afebrile overnight. T-max 99.7 last night. No new complaints. Awaiting follow-up labs. Gram-positive cocci in clusters in both bottles of 1 set. Echo pending. MRI of the foot ordered and podiatry consulted. 06/07 Patient doing well. Sodium improving. No overnight events. No new complaints. N.p.o. 06/08 Feeling well today's. No overnight event or new complaints. Sodium improved. Mild hypokalemia. Hypomagnesemia Awaiting surgery date. Possible discharge tomorrow if SNF will take him on Friday and blood cultures remain negative by tomorrow. 06/09 No overnight event or new complaints. Sodium low but stable. Placed on fluid restrict salt tabs. Magnesium low will replete. Wound culture with multidrug-resistant organism Alcaligenes. 06/10 Patient feeling well. No complaints. 06/11 Doing well. Sodium dropped today. Suspect that partial component is IV Cipro which did not realize was in water solution. Patient feeling well. Getting PICC line today. 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 06/13 Requiring IV dilaudid for pain, otherwise doing ok. Sodium slightly improved at 127. Adjusted analgesics. Looking into SNF options for discharge. 06/14 Weaning down on IV dilaudid for discharge to SNF. Physical exam Head: Atraumatic, normal inspection. Eyes: normal appearance, no scleral icterus. Neck: full ROM Respiratory: no respiratory distress. Cardiovascular: normal rate and rhythm, S1, S2. GI/Abdominal: soft, nontender, no guarding. Extremities: left BKA, right charcot foot deformity, right foot covered with clean bandage Neurological: CN II-XII intact, intact motor, intact sensation. Psychiatric: normal mood. Skin: warm, normal color Constitutional Vitals: Vital Signs Temp Pulse Resp BP Pulse Ox 98.0 F 70 20 132/85 98 06/14/21 12:00 06/14/21 12:00 06/14/21 12:00 06/14/21 12:00 06/14/21 12:00 Period Temp Pulse Resp BP Sys/Hurtado Pulse Ox Last 24 Hr 97.5 F-99.0 F 66-75 18-20 111-158/63-91 96-99 Intake and Output 06/14/21 06/14/21 06/14/21 05:59 13:59 21:59 Intake Total 240 Output Total 825 600 Balance -585 -600 Intake & Output: Intake & Output 06/14/21 06/14/21 06/14/21 05:59 13:59 21:59 Intake Total 240 Output Total 825 600 Balance -585 -600 Intake: Oral 240 Output: Void Amount 825 600 Other: Urine Appearance Clear Urine Color Dark Yellow OBJ DATA Labs CBC & Chem 7: 06/12/21 07:49 06/13/21 10:56 Labs: Abnormal Lab Results 06/13/21 06/12/21 06/12/21 10:56 07:49 07:49 RBC 3.53 L Hgb 11.6 L Hct 33.1 L Lymph # (Auto) 0.87 L Sodium 127 L 126 L Chloride 95 L Carbon Dioxide 21 L 21 L Creatinine 0.6 L 0.5 L Glucose 178 H 117 H Calcium 8.4 L Meds: Medications Acetaminophen (Acetaminophen 325 Mg Tablet) 1,000 mg PO Q8H [facility]; Protocol Last Admin: 06/14/21 10:25 Dose: 1,000 mg Documented by: Albuterol/Ipratropium (Ipratropium/Albuterol 3 Ml Ampul.Neb) 3 ml NEB Q4HP PRN PRN Reason: Shortness Of Breath Bisoprolol Fumarate (Bisoprolol 5 Mg Tablet) 10 mg PO BID [facility] Last Admin: 06/14/21 08:20 Dose: 10 mg Documented by: Cefazolin Sodium (Cefazolin 1 Gm Vial) 2 gm IV Q8H [facility] Last Admin: 06/14/21 13:59 Dose: 2 gm Documented by: Heparin Sodium (Porcine) (Heparin 5,000 Unit/Ml Vial) 5,000 unit SQ Q12 [facility] Last Admin: 06/14/21 08:20 Dose: 5,000 unit Documented by: Heparin Sodium (Porcine) (Heparin Flush 10 Units/Ml 5 Ml Syringe) 2 ml IV Q12 [facility] Last Admin: 06/14/21 08:21 Dose: 2 ml Documented by: Hydromorphone HCl (Hydromorphone 0.5 Mg/0.5 Ml Syringe) 0.5 mg IV Q4HP PRN; Protocol PRN Reason: Per Pain Protocol Last Admin: 06/14/21 13:59 Dose: 0.5 mg Documented by: Potassium Chloride 40 meq/ (Dextrose) 520 mls @ 130 mls/hr IV UD PRN PRN Reason: Potassium < 3 Last Infusion: 06/06/21 06:17 Dose: Infused Documented by: Magnesium Sulfate (Magnesium Sulfate) 2 gm in 50 mls @ 50 mls/hr IV UD PRN PRN Reason: Magnesium </= 1.6 Last Infusion: 06/10/21 10:19 Dose: Infused Documented by: Labetalol HCl (Labetalol 5 Mg/Ml Ml) 0 mg IV Q2HP PRN PRN Reason: Hypertension Last Admin: 06/13/21 01:00 Dose: 20 mg Documented by: Lorazepam (Lorazepam 1 Mg Tablet) 2 mg PO HS [facility] Last Admin: 06/13/21 20:29 Dose: 2 mg Documented by: Losartan Potassium (Losartan 50 Mg Tablet) 100 mg PO 1600 [facility] Last Admin: 06/13/21 15:35 Dose: 100 mg Documented by: Ondansetron HCl (Ondansetron 4 Mg/2 Ml Vial) 4 mg IV Q4HP PRN PRN Reason: Nausea And Vomiting Last Admin: 06/14/21 12:19 Dose: 4 mg Documented by: Oxycodone HCl (Oxycodone Hcl 5 Mg Tablet) 10 mg PO Q6HP PRN; Protocol PRN Reason: Per Pain Protocol Last Admin: 06/14/21 10:29 Dose: 10 mg Documented by: Potassium Chloride (Potassium Chloride 20 Meq Tablet) 40 meq PO UD PRN PRN Reason: Potssium is 3-3.5 Last Admin: 06/05/21 22:26 Dose: 40 meq Documented by: Potassium Chloride (Potassium Chloride 20 Meq Tablet) 40 meq PO UD PRN PRN Reason: Potassium < 3 Scopolamine (Scopolamine 1 Patch Patch) 1 patch TOPICAL PREOP PRN PRN Reason: Nausea And Vomiting Sodium Chloride (0.9 % Sodium Chloride 10 Ml Syringe) 10 ml IV UD PRN PRN Reason: FLUSH Sodium Chloride (0.9 % Sodium Chloride 10 Ml Syringe) 10 ml IV Q12 [facility] Last Admin: 06/14/21 14:46 Dose: 10 ml Documented by: Sodium Chloride (Sodium Chloride 1 Gm Tablet) 1 gm PO TID [facility] Last Admin: 06/14/21 14:46 Dose: 1 gm Documented by: A/P Narrative A/P Narrative: Assessment: 56-year-old male with hypertension, anxiety, obesity, Charcot foot deformities admitted for a left foot infected ulcer complicated by MSSA bacteremia, and acute kidney injury. Patient was also severely hyponatremic on admission. *Left foot infected ulcer s/p BKA 06/12/21 -WC with Enteroboacter/Alcaligenes(MRDO)/Staph *Bacteremia(MSSA): source 2/2 above and probably osteo -no vegetations on TTE; repeat BC neg *b/l Severe Charcot foot deformities: Follows with Dr. Yu *Hyponatremia: 118 on admit, now improved. 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 *resolved KATE: *HTN: On BB/ARB/HCTZ *Anxiety: *Obese: P: -Cefazolin 2gm IV Q8 hrs via PICC for MSSA bacteremia, plan to treat 2 weeks post BKA. -Analgesics prn, wean as tolerated. -fluid restrict, salt tabs, follow sodium -Continue home BB/ARB, stopped home HCTZ -PT/OT -ppx: heparin -DNR -disposition: SNF, follow up with ortho. Time Spent With Patient Time: Total time spent is greater than 50% in coordination of care (as documented) at patient's floor/unit and/or counseling patient: QUALITY VTE Deep Vein Thrombosis/Pulmonary Embolism Present on Admission: No
[2021-06-14] MEDS: LOSARTAN 50 MG TABLET PO SCH (16:02)
[2021-06-14] MEDS: LABETALOL 5 MG/ML ML IV PRN (19:48)
[2021-06-14] MEDS: LORazepam 1 MG TABLET PO SCH (21:10)
[2021-06-15] MEDS: ACETAMINOPHEN 325 MG TABLET PO SCH ×2 (01:33→09:54)
[2021-06-15] MEDS: HYDROmorphone 0.5 MG/0.5 ML SYRINGE IV PRN (03:10)
[2021-06-15] MEDS: LABETALOL 5 MG/ML ML IV PRN (03:50)
[2021-06-15] MEDS: ceFAZolin 1 GM VIAL IV SCH (06:03)
[2021-06-15] MEDS: oxyCODONE HCL 5 MG TABLET PO PRN (06:26)
[2021-06-15] MEDS: HEPARIN 5,000 UNIT/ML VIAL SQ SCH (08:26)
[2021-06-15] MEDS: BISOPROLOL 5 MG TABLET PO SCH (08:27)
[2021-06-15] MEDS: SODIUM CHLORIDE 1 GM TABLET PO SCH (08:28)
[2021-06-15] MEDS ORDERED: HYDROmorphone 0.5 MG/0.5 ML SYRINGE IV PRN (09:15)
[2021-06-15] MEDS ORDERED: CELECOXIB 200 MG CAPSULE PO SCH (09:15)
[2021-06-15] MEDS: 0.9 % SODIUM CHLORIDE 10 ML SYRINGE IV SCH (09:50)
[2021-06-15] MEDS ORDERED: oxyCODONE HCL 5 MG TABLET PO PRN (11:21)
--- NOTE | 2021-06-15 13:47 | Discharge Summary ---
Discharge Provider Provider Patient information: Note initiated : 06/15/21 at 1:45 pm Service Date, if different from initiated Date: [] Patient: Naga Simeon 56 y/o M admitted on 06/05/21 for fever, runny nose. Chief Complaint: [] Date of admission: 06/05/21 21:23 Discharge date: 06/15/21 Primary care physician: ANKUR Eugene Consults: 06/05/21 Consult to Physician [CONS] Stat Comment: Consulting Provider: Sergio Yu Reason For Exam: Physician to Consult Consult to Physician [CONS] Stat Comment: Consulting Provider: Jefe Donald Reason For Exam: Physician to Consult 06/05/21 21:32 Consult to Physician [CONS] Routine Comment: Consulting Provider: Sergio Yu Reason For Exam: Physician to Consult 06/06/21 12:53 Consult to Physician [CONS] Routine Comment: Consulting Provider: Giancarlo Hagan Reason For Exam: Physician to Consult Discharge Meds Discharge Medications Home Medications losartan 100 mg tablet 100 mg PO 1600 04/03/18 [History Confirmed 06/05/21 Last Taken 06/05/21 16:00] lorazepam 1 mg tablet 2 mg PO DAILY 07/23/18 [History Confirmed 06/05/21 Last Taken 06/05/21 20:00] bisoprolol fumarate 10 mg tablet 10 mg PO BID #60 tab 06/07/21 [Rx Last Taken Unknown] acetaminophen 325 mg tablet (Tylenol) 1,000 mg PO Q8H PRN #30 tab 06/15/21 [Rx Last Taken Unknown] bisoprolol fumarate 5 mg tablet 10 mg PO BID #60 tab 06/15/21 [Rx Last Taken Unknown] cefazolin 1 gram solution for injection 2 g IV Q8H 12 Days #72 ea 06/15/21 [Rx Last Taken Unknown] celecoxib 200 mg capsule 200 mg PO BID PRN #30 cap 06/15/21 [Rx Last Taken Unknown] oxycodone 5 mg tablet 10 mg PO Q6HP PRN #10 tab 06/15/21 [Rx Last Taken Unknown] COURSE Hospital Course Hospital course: Mr. Simeon is a 56 year old M Presents to ED with 10-day history of fevers as well as a mild occasional cough, minimal shortness of breath and diarrhea that started today. Patient feels like he is developing a worsening infection of his left foot after one of his friends looked at his foot today and thought it was getting worse. He has seen Dr. Yu for this outpatient. Work-up in the ED included labs showed a mild leukocytosis. He had hyponatremia of 118 and is on hydrochlorothiazide. But pt also drinks about a gallon of H2o a day, of note he is 100kg. Potassium little low acute kidney injury noted. Lactate okay. Left foot x-ray done. ESR pending. Exam in the ED of the foot malodorous. Dr. Yu will be consulted from ED. 06/05 Afebrile overnight. T-max 99.7 last night. No new complaints. Awaiting follow-up labs. Gram-positive cocci in clusters in both bottles of 1 set. Echo pending. MRI of the foot ordered and podiatry consulted. 06/07 Patient doing well. Sodium improving. No overnight events. No new complaints. N.p.o. 06/08 Feeling well today's. No overnight event or new complaints. Sodium improved. Mild hypokalemia. Hypomagnesemia Awaiting surgery date. Possible discharge tomorrow if SNF will take him on Friday and blood cultures remain negative by tomorrow. 06/09 No overnight event or new complaints. Sodium low but stable. Placed on fluid restrict salt tabs. Magnesium low will replete. Wound culture with multidrug-resistant organism Alcaligenes. 06/10 Patient feeling well. No complaints. 06/11 Doing well. Sodium dropped today. Suspect that partial component is IV Cipro which did not realize was in water solution. Patient feeling well. Getting PICC line today. 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 06/13 Requiring IV dilaudid for pain, otherwise doing ok. Sodium slightly improved at 127. Adjusted analgesics. Looking into SNF options for discharge. 06/14 Weaning down on IV dilaudid for discharge to SNF. 06/15 Pain adequately controlled off IV dilaudid. Discharged to SNF for rehab. Complete 14 days post of for left BKA with IV Cefazolin via PICC for MSSA bacteremia. Physical exam Head: Atraumatic, normal inspection. Eyes: normal appearance, no scleral icterus. Neck: full ROM Respiratory: no respiratory distress. Cardiovascular: normal rate and rhythm, S1, S2. GI/Abdominal: soft, nontender, no guarding. Extremities: PICC, left BKA, right charcot foot deformity, right foot covered with clean bandage Neurological: CN II-XII intact, intact motor, intact sensation. Psychiatric: normal mood. Skin: warm, normal color Discharge diagnosis: Left foot infected ulcer Secondary discharge diagnosis: MSSA bacteremia Time Spent with Patient Time attestation: Total time spent providing and/or coordinating discharge services: EXAM Constitutional Vitals: Temp Pulse Resp BP Pulse Ox 98.4 F 65 16 147/85 95 06/15/21 12:00 06/15/21 12:00 06/15/21 12:00 06/15/21 12:00 06/15/21 12:00 Discharge Plan Patient/Caregiver Discharge Instructions Activity: increase activity as tolerated Diet: Consistent Carbohydrate Activity Restrictions/Additional Instructions: PICC line care and weekly CBC/CMP/ESR/CRP while on IV antibiotics and send to PCP. DC PICC line and IV antibiotics finish. Prescriptions: New bisoprolol fumarate 10 mg tablet 10 mg PO BID Qty: 60 0RF acetaminophen [Tylenol] 325 mg Tablet 1,000 mg PO Q8H PRN (Reason: pain) Qty: 30 0RF celecoxib 200 mg Capsule 200 mg PO BID PRN (Reason: pain) Qty: 30 0RF oxycodone 5 mg Tablet 10 mg PO Q6HP PRN (Reason: Per Pain Protocol) Qty: 10 0RF bisoprolol fumarate 5 mg Tablet 10 mg PO BID Qty: 60 2RF cefazolin 1 gram Recon Soln 2 g IV Q8H 12 Days Qty: 72 0RF Continued losartan 100 MG tablet 100 mg PO 1600 0RF lorazepam 1 MG tablet 2 mg PO DAILY 0RF Discontinued bisoprolol-hydrochlorothiazide [Ziac] 10-6.25 mg tablet See Rx Instructions .ROUTE .COMPLEX 0RF Rx Instructions: Take one tablet by mouth twice daily. Other Ambulatory Orders: Brace/Splint (ONCE) Location: None Selected Ordered By: Allen Haney OT Discharge Order (Routine) Location: None Selected Ordered By: Panchito Jacob Physical Therapy at Discharge - General (Routine) Location: None Selected Ordered By: Panchito Jacob Follow Up Plan Follow up with: Gregg Barnes ARNP [Primary Care Provider] - Giancarlo Hagan MD [Physician] - Patient Disposition: Xfer SNF Prognosis: Fair Rehab Potential: Fair I certify that the patient requires SNF services: Yes Overall status at discharge: patient is progressing back to baseline Discharge Orders: Discharge Order (Routine); Ordered 06/15/21 Ordered By: Panchito Jacob QUALITY VTE Deep Vein Thrombosis/Pulmonary Embolism Present on Admission: No
== END 2021-06-15 14:50 | DRG 580 ==
LOC: ED 17:34 → MEDSUR 21:23
PROVIDERS: ADMIT Internal Medicine; ATTEND Internal Medicine

== ENCOUNTER 2022-01-30 10:29 | Inpatient (IN) ==
[2022-01-22 11:58] LABS: Basophils # (Auto) 0.04 K/mcL (0.00-0.30); Basophils % (Auto) 0.7 % (0.0-2.0); Eosinophils # (Auto) 0.03 K/mcL (0.00-0.70); Eosinophils % (Auto) 0.5 % (0.0-7.0); Hematocrit 43.4 % (40.1-51.0); Hemoglobin 14.5 g/dL (13.7-17.5); Lymphocytes # (Auto) 1.44 K/mcL (1.50-4.80); Lymphocytes % (Auto) 25.3 % (15.5-49.0); Mean Corpuscular HGB Conc 33.4 g/dL (31.0-36.0); Mean Platelet Volume 9.2 fL (7.4-10.4); Monocytes # (Auto) 0.56 K/mcL (0.10-0.90); Monocytes % (Auto) 9.8 % (1.0-12.0); Neutrophils % (Auto) 63.5 % (38.0-78.0); Platelet Count 444 K/mcL (140-440); RBC 4.82 M/mcL (4.63-6.08); Red Cell Distribution Width 12.4 % (11.5-14.5); WBC 5.7 K/mcL (4.5-11.0)
[2022-01-22 12:49] LABS: ALT/SGPT 14 U/L (<40); AST/SGOT 25 U/L (<40); Albumin 3.9 gm/dL (3.2-5.2); Alkaline Phosphatase 108 U/L (39-117); Bilirubin,Total 0.5 mg/dL (0.1-1.0); Blood Urea Nitrogen 4 mg/dL (6-20); Calcium 8.9 mg/dL (8.6-10.4); Carbon Dioxide 23 mmol/L (22-30); Chloride 89 mmol/L (96-108); Globulin 3.8 gm/dL (2.2-3.7); Glomerular Filtration Rate 113; Glucose 122 mg/dL (70-105)
--- NOTE | 2022-01-25 07:26 | EKG ---
[facility] Test Date: 2022-01-22 Pat Name: Naga Simeon Department: [facility] Room: Gender: Male News [employer] Intern: : 1965 Requested By: Giancarlo Shannon Order Number: [id number] Reading MD: Zhao Reynolds M.D. Measurements Intervals [place] Rate: 59 P: -8 IN: 182 QRS: 50 QRSD: 106 T: 43 QT: 440 QTc: 436 Interpretive Statements Sinus rhythm Electronically Signed On 01-25-2022 7:24:28 PDT by Zhao Reynolds M.D. /[id number]
[~2022-01-30 10:29] MED LIST: IPRATROPIUM/ALBUTEROL 3 ML AMPUL.NEB NEB PRN; SCOPOLAMINE 1 PATCH PATCH TOPICAL PRN; ceFAZolin 2 GM in DEXTROSE 5% IN WATER 50 ML IV SCH
--- OUTSIDE RECORDS SUMMARY | 2022-01-30 10:31 | External Medical Summary ---
:1965 Author Care Team Providers Name Role Phone VINI BERUMEN DDS Dentist [phone] Allergies Code Code System Name Reaction Severity Status Onset NKDA Notes: 09/19/21 Medications Name Status Start Date Stop Date acyclovir 5 % topical ointment Active N ot available bisoprolol 10 mg-hydrochlorothiazide 6.25 mg tablet Active Not available bisoprolol 5 mg-hydrochlorothiazide 6.25 mg tablet Active Not available bisoprolol fumarate 10 mg tablet Active Not available TAKE 1 TABLET BY MOUTH TWICE DAILY celecoxib 200 mg capsule Active Not binh ilable cyclobenzaprine 5 mg tablet Active Not available Take by oral route for 2 days. dexamethasone 6 mg tablet Active Not av ailable doxycycline hyclate 100 mg tablet Active Not available doxycycline monohydrate 100 mg capsule Active Not available fluocinolone 0.01 % topical solution Active Not available APPLY TOPICALLY TO SCALP WITH CAPSULES AT NIGHT THEN RINSE IN T HE MORNING fluoxetine 20 mg capsule Active Not binh ilable hydrocodone 5 mg-acetaminophen 325 mg tablet Active Not available ibuprofen 600 mg tablet Active Not avai lable Take 1 tablet 3 times a day by oral route as needed for 5 days. lidocaine 5 % topical patch Active Not available lorazepam 1 mg tablet Active Not availa ble lorazepam 2 mg tablet Active Not availa ble losartan 100 mg tablet Active Not avail able losartan 50 mg tablet Active Not availa ble metronidazole 500 mg tablet Active Not available naproxen 500 mg tablet Active Not avail able nifedipine ER 30 mg tablet,extended release 24 hr Active Not available nystatin 100,000 unit/gram topical powder Active Not available oxycodone 10 mg tablet Active Not avail able oxycodone 5 mg tablet Active Not availa ble promethazine 25 mg tablet Active Not av ailable sulfamethoxazole 800 mg-trimethoprim 160 mg tablet Active Not available Xarelto 10 mg tablet Active Not availab le Notes: Reviewed with pt 09/14/21 LW pt states no change 09/19/21 Problems None recorded. Procedures None recorded. Results Lab Results None recorded. Past Encounters 09/19/2021 Loss of Teeth Due to Extraction Vini Berumen, DDS: [address] [place] [phone], Ph. 09/14/2021 Preventive Dental Procedure Vini Berumen, DDS: [address] [place] [address], [place] [id number], Ph. Social History Tobacco Smoking Status Former Smoker Vaccine List None recorded. Plan of Care Patient Instructions EXTRACTION After today: rinse 3-6 times per day wit h warm salt water Bite on gauze for at least an hour DO NOT smoke or use any tobacco products . Avoid anything that contains nicotine. DO NOT rinse, spit or exercise. Do not d rink hot liquids, alcohol or soda For excessive bleeding, fold a wet tea b ag in half and bite in it for an hour Rest, drink plenty of liquids and eat so ft foods Take medications as prescribed Reminders Provider Appointments None recorded. Lab None recorded. Referral None recorded. Procedures None recorded. Surgeries None recorded. Imaging None recorded. Vitals 09/19/2021 04:00PM Extraction Blood Pressure 162/83 mm[Hg] 09/14/2021 02:45PM SALTY Blood Pressure 185/100 mm[Hg] 07/19/2020 10:30AM Dental Restorative Blood Pressure 141/82 mm[Hg] 05/02/2020 08:45AM Extraction Blood Pressure 149/82 mm[Hg] 04/26/2020 07:45AM SALTY Blood Pressure 154/82 mm[Hg] 04/05/2020 09:00AM Extraction Blood Pressure 128/68 mm[Hg] 03/28/2020 07:30AM Dental Scaling Blood Pressure 154/80 mm[Hg] 03/03/2020 04:15PM Extraction Blood Pressure 163/91 mm[Hg] 02/22/2020 08:30AM Dental Scaling Blood Pressure 147/81 mm[Hg] 02/11/2020 08:30AM Dental Scaling Blood Pressure 149/78 mm[Hg] 03/11/2019 08:45AM Extraction Blood Pressure 146/85 mm[Hg] 03/05/2019 09:45AM Adult Dental Exam Blood Pressure 145/84 mm[Hg] 02/19/2019 08:30AM Extraction Blood Pressure 133/80 mm[Hg] 02/17/2019 05:15PM Dental Exam/Limited Blood Pressure 171/84 mm[Hg]
[2022-01-30 12:39] LABS: POC Blood Urea Nitrogen < 3 (6-20); POC Calcium, Ionized 1.04 (1.16-1.32); POC Chloride 95 (96-108); POC Creatinine 0.4 (0.6-1.2); POC Glucose, Random 107 (70-105); POC Potassium 3.6 (3.3-5.1); POC Sodium 133 (133-145)
[2022-01-30] MEDS ORDERED: KETAMINE 50 MG/ML Syringe (ANEST) IV ONE (13:09)
[2022-01-30] MEDS ORDERED: TRANEXAMIC ACID 1,000 MG/10 ML VIAL ONE (13:09)
[2022-01-30] MEDS ORDERED: fentaNYL 100 MCG/2 ML VIAL IV ONE (13:09)
[2022-01-30] MEDS ORDERED: ROCURONIUM 10 MG/ML ML IV ONE (13:09)
[2022-01-30] MEDS ORDERED: ePHEDrine 50 MG/5 ML SYRINGE (ANEST) IV ONE (13:09)
[2022-01-30] MEDS ORDERED: LIDOCAINE HCL/PF 100 MG/5 ML SYRINGE IV ONE (13:09)
[2022-01-30] MEDS ORDERED: MIDAZOLAM 2 MG/2 ML VIAL ONE (13:09)
[2022-01-30] MEDS ORDERED: GLYCOPYRROLATE 0.2 MG/ML VIAL IV ONE (13:09)
[2022-01-30] MEDS ORDERED: diphenhydrAMINE 50 MG/ML VIAL ONE (13:09)
[2022-01-30] MEDS ORDERED: MAGNESIUM SULFATE 2 GM/50 ML BAG IV ONE (13:09)
[2022-01-30] MEDS ORDERED: ONDANSETRON 4 MG/2 ML VIAL ONE (13:09)
[2022-01-30] MEDS ORDERED: ROPIVACAINE HCL/PF 20 ML VIAL IJ ONE (13:09)
[2022-01-30] MEDS ORDERED: KETOROLAC 30 MG/ML VIAL ONE (13:09)
[2022-01-30] MEDS ORDERED: PROPOFOL 200 MG/20 ML VIAL IV ONE (13:09)
[2022-01-30] MEDS ORDERED: SUGAMMADEX SODIUM 200 MG/2 ML VIAL IV ONE (13:09)
[2022-01-30 13:17] LABS: Hematocrit 38.2 % (40.1-51.0); Hemoglobin 13.3 g/dL (13.7-17.5); Mean Cell Volume 90.5 fL (80.0-100.0); Mean Corpuscular HGB Conc 34.8 g/dL (31.0-36.0); Mean Platelet Volume 9.4 fL (8.8-12.5); Platelet Count 210 K/mcL (140-440); RBC 4.22 M/mcL (4.63-6.08); Red Cell Distribution Width 12.5 % (11.5-14.5); WBC 4.3 K/mcL (4.5-11.0)
[2022-01-30] MEDS ORDERED: PROMETHAZINE 25 MG/ML VIAL IV PRN ×2 (13:40→15:50)
[2022-01-30] MEDS ORDERED: MEPERIDINE 25 MG/ML VIAL IV PRN (13:40)
[2022-01-30] MEDS ORDERED: ACETAMINOPHEN 1,000 MG/100 ML BAG IV ONE (13:40)
[2022-01-30] MEDS ORDERED: FLUMAZENIL 0.1 MG/ML ML IV PRN (13:40)
[2022-01-30] MEDS ORDERED: PROMETHAZINE 25 MG/ML VIAL IM PRN (13:40)
[2022-01-30] MEDS ORDERED: MEPERIDINE 50 MG/ML VIAL IM PRN (13:40)
[2022-01-30] MEDS ORDERED: ePHEDrine 50 MG/ML AMPUL IV PRN (13:40)
[2022-01-30] MEDS ORDERED: LACTATED RINGERS 250 ML IV PRN (13:40)
[2022-01-30] MEDS ORDERED: IPRATROPIUM/ALBUTEROL 3 ML AMPUL.NEB NEB PRN ×2 (13:40→15:50)
[2022-01-30] MEDS ORDERED: HYDROmorphone 0.5 MG/0.5 ML SYRINGE IV PRN (13:40)
[2022-01-30] MEDS ORDERED: NALOXONE HCL 0.4 MG/ML VIAL IV PRN ×2 (13:40→15:50)
[2022-01-30] MEDS ORDERED: ONDANSETRON 4 MG/2 ML VIAL IV PRN ×2 (13:40→15:50)
[2022-01-30] MEDS ORDERED: LABETALOL 5 MG/ML ML IV PRN (13:40)
[2022-01-30] MEDS ORDERED: METOCLOPRAMIDE 10 MG/2 ML VIAL IV PRN (13:40)
[2022-01-30] MEDS ORDERED: METHOCARBAMOL 1,000 MG/10 ML VIAL IV PRN (13:40)
[2022-01-30] MEDS ORDERED: ATROPINE SULFATE 0.4 MG/ML VIAL IV PRN (13:40)
[2022-01-30] MEDS ORDERED: LACTATED RINGERS 1,000 ML IV SCH ×2 (13:45→16:00)
[2022-01-30 13:48] LABS: Blood Urea Nitrogen 3 mg/dL (6-20); Calcium 8.6 mg/dL (8.6-10.4); Carbon Dioxide 24 mmol/L (22-30); Chloride 97 mmol/L (96-108); Glomerular Filtration Rate 121; Glucose 104 mg/dL (70-105)
[2022-01-30] MEDS ORDERED: BISACODYL 10 MG SUPP.RECT PR PRN (14:37)
[2022-01-30] MEDS ORDERED: FLEETS ADULT ENEMA PR PRN (14:37)
[2022-01-30] MEDS ORDERED: POLYETHYLENE GLYCOL 3350 17 GM PACKET PO PRN (14:37)
[2022-01-30] MEDS ORDERED: MAGNESIUM HYDROXIDE 30 ML ORAL.SUSP PO PRN (14:37)
--- NOTE | 2022-01-30 14:37 | Brief Operative Note ---
Brief Operative Note Date of procedure: 01/30/22 Pre-op diagnosis: Right foot severe deformity with chronic open wound Post-op diagnosis: same Procedure: Right transtibial below knee amputation Grafts/Implants: No Anesthesia: GLMA Findings: severe foot deformity Complications: none Surgeon: Giancarlo Hagan Saw Runner: Austin Lee Estimated blood loss (cc): 200 Specimens Removed/Pathology: other (amputated foot) Condition: stable Disposition: PACU
[2022-01-30] MEDS ORDERED: LIDOCAINE 1% 20 ML VIAL SQ ONE (14:38)
[2022-01-30] MEDS ORDERED: oxyCODONE HCL 5 MG TABLET PO PRN (14:42)
[2022-01-30] MEDS ORDERED: ceFAZolin 2 GM in DEXTROSE 5% IN WATER 50 ML IV SCH (14:45)
[2022-01-30] MEDS ORDERED: PROMETHAZINE 25 MG TABLET PO PRN (14:50)
[2022-01-30] MEDS ORDERED: PREGABALIN 75 MG CAPSULE PO ONE (15:52)
[2022-01-30] MEDS: fentaNYL 100 MCG/2 ML VIAL IV ONE ×4 (16:08→16:41)
[2022-01-30] MEDS: METOPROLOL TARTRATE 5 MG/5 ML VIAL IV PRN ×2 (16:11→16:26)
[2022-01-30] MEDS ORDERED: diphenhydrAMINE 50 MG/ML VIAL IV ONE (16:49)
[2022-01-30] MEDS ORDERED: hydrALAZINE 20 MG/ML VIAL IV ONE (16:49)
[2022-01-30] MEDS: morphine 4 MG/ML VIAL IV PRN ×3 (17:51→23:45)
[2022-01-30] MEDS: 0.9 % SODIUM CHLORIDE 1,000 ML IV SCH (17:57)
[2022-01-30] MEDS: ceFAZolin 1 GM VIAL IV SCH (21:01)
[2022-01-30] MEDS: diphenhydrAMINE 50 MG/ML VIAL IV PRN (21:01)
[2022-01-30] MEDS: SENNOSIDES 1 TABLET PO SCH (21:02)
[2022-01-30] MEDS: 0.9 % SODIUM CHLORIDE 10 ML SYRINGE IV SCH (21:03)
[2022-01-30] MEDS: DOCUSATE SODIUM 100 MG CAPSULE PO SCH (21:03)
[2022-01-30] MEDS: LORazepam 1 MG TABLET PO SCH (21:03)
[2022-01-30] MEDS: LOSARTAN 50 MG TABLET PO SCH (21:09)
[2022-01-31] MEDS: 0.9 % SODIUM CHLORIDE 1,000 ML IV SCH ×3 (01:30→14:14)
[2022-01-31] MEDS: oxyCODONE HCL 5 MG TABLET PO PRN ×5 (01:36→22:18)
[2022-01-31] MEDS: morphine 4 MG/ML VIAL IV PRN ×5 (03:18→18:02)
--- NOTE | 2022-01-31 03:19 | XRay Report ---
. CLINICAL INFORMATION: Status post BKA COMPARISON: None. FINDINGS: Patellofemoral and tibiofemoral joint spaces are normal in width and alignment arthritic change. No effusions are present. BKA amputation changes the proximal tibial and fibular diaphysis demonstrates typical postoperative appearance. Mild overlying soft tissue swelling stump region-as expected.. IMPRESSION: BKA amputation Interpreted and Authenticated by: Zhao Hastings 01/31/22
[2022-01-31] MEDS: ceFAZolin 1 GM VIAL IV SCH (04:22)
[2022-01-31] MEDS: diphenhydrAMINE 50 MG/ML VIAL IV PRN (04:44)
--- NOTE | 2022-01-31 07:41 | Orthopedic Progress Note ---
SUBJECTIVE Subjective Patient information: Note initiated : 01/31/22 at 7:39 am Service Date, if different from initiated Date: [] Patient: Naga Simeon 56 y/o M admitted on 01/30/22 for Right Below Knee Amputation Thru Tibia and Fibula. Chief Complaint: no c/o. Constitutional Vitals: Vital Signs Temp Pulse Resp BP Pulse Ox O2 Del Method O2 Flow Rate 98.2 F 66 20 162/97 96 0 01/31/22 03:01/31/22 03:28 01/31/22 03:28 01/31/22 03:01/31/22 03:01/31/22 03:01/30/22 17:13 Period Temp Pulse Resp BP Sys/Hurtado Pulse Ox O2 Del Method O2 Flow Rate Last 24 Hr 97.3 F-98.3 F 51-82 15-21 131-181/82-99 95-100 Room Air-Simple Mask 0-6 Intake and Output 01/30/22 01/31/22 01/31/22 21:59 05:59 13:59 Intake Total 2300 1120 Output Total 1200 2000 Balance 1100 -880 Weight 230 lb 8 oz Intake & Output: Intake & Output 01/30/22 01/31/22 01/31/22 21:59 05:59 13:59 Intake Total 2300 1120 Output Total 1200 2000 Balance 1100 -880 Weight 230 lb 8 oz Intake: IV 100 1000 Sodium Chloride 0.9% 1,000 ml @ 1000 100 mls/hr IV .Q10H [facility] Rx#: [id number] Oral 120 IV - Manual Only 2200 Output: Urine Catheter Amount 1100 2000 Estimated Blood Loss 100 Other: Meal Dinner Percent of Meal Consumed 75% Feeding Ability Independent Urine Appearance Clear Clear Urine Color Yellow Bright Yellow Urine Odor Normal Normal OBJ DATA Labs CBC & Chem 7: 01/30/22 12:30 01/30/22 12:30 Labs: Abnormal Lab Results 01/30/22 01/30/22 01/30/22 12:34 12:30 12:30 WBC 4.3 L RBC 4.22 L Hgb 13.3 L Hct 38.2 L POC Hct 39.0 L POC Chloride 95 L POC BUN < 3 L BUN 3 L Creatinine 0.5 L POC Creatinine 0.4 L POC Glucose 107 H POC WB Ioniz Calcium 1.04 L bandages c/d/i nvi-distal Meds: Medications Bisacodyl (Bisacodyl 10 Mg Supp.Rect) 10 mg VT Q2-3DAYS PRN PRN Reason: Constipation Bisoprolol Fumarate (Bisoprolol 5 Mg Tablet) 10 mg PO DAILY [facility] Docusate Sodium (Docusate Sodium 100 Mg Capsule) 100 mg PO BID [facility] Last Admin: 01/30/22 21:03 Dose: 100 mg Fluoxetine HCl (Fluoxetine Hcl 20 Mg Capsule) 20 mg PO DAILY [facility] Hydrochlorothiazide (Hydrochlorothiazide 25 Mg Tablet) 6.25 mg PO DAILY [facility] Sodium Chloride (Sodium Chloride 0.9%) 1,000 mls @ 100 mls/hr IV .Q10H [facility] Last Admin: 01/31/22 04:15 Dose: 100 mls/hr Lorazepam (Lorazepam 1 Mg Tablet) 1 mg PO [facility] Last Admin: 01/30/22 21:03 Dose: 1 mg Losartan Potassium (Losartan 50 Mg Tablet) 100 mg PO [facility] Last Admin: 01/30/22 21:09 Dose: 100 mg Magnesium Hydroxide (Magnesium Hydroxide 30 Ml Oral.Susp) 30 ml PO BIDP PRN PRN Reason: Constipation Morphine Sulfate (Morphine 4 Mg/Ml Vial) 0 mg IV Q1HP PRN; Protocol PRN Reason: Per Pain Protocol Last Admin: 01/31/22 03:18 Dose: 5 mg Oxycodone HCl (Oxycodone Hcl 5 Mg Tablet) 0 mg PO Q4HP PRN; Protocol PRN Reason: Per Pain Protocol Last Admin: 01/31/22 07:10 Dose: 10 mg Polyethylene Glycol (Polyethylene Glycol 3350 17 Gm Packet) 17 gm PO DAILYP PRN PRN Reason: Constipation Promethazine HCl (Promethazine 25 Mg Tablet) 12.5 mg PO TIDP PRN PRN Reason: Nausea And Vomiting Senna (Sennosides 1 Tablet) 2 tab PO HS [facility] Last Admin: 01/30/22 21:02 Dose: 2 tab Sodium Biphosphate/Sodium Phosphate (Fleets Adult Enema) 1 dose VT Q3-4DAYS PRN PRN Reason: Constipation Sodium Chloride (0.9 % Sodium Chloride 10 Ml Syringe) 10 ml IV Q12 [facility] Last Admin: 01/30/22 21:03 Dose: Not Given A/P Assessment and plan (1) History of right below knee amputation: Status: Acute Comment: bandages c/d/i. wear knee immobilizer, may remove for ROM. mobilize with PT. discharge to snf in 1-2 days. Time Spent With Patient Time: Total time spent is greater than 50% in coordination of care (as documented) at patient's floor/unit and/or counseling patient: Total time spent with greater than 50% in coordination of care (as documented) at patient's floor/unit and/or counseling patient:: less than 15 minutes
[2022-01-31] MEDS: DOCUSATE SODIUM 100 MG CAPSULE PO SCH ×2 (08:03→22:17)
[2022-01-31] MEDS: FLUoxetine HCL 20 MG CAPSULE PO SCH (08:11)
[2022-01-31] MEDS: BISOPROLOL 5 MG TABLET PO SCH (08:11)
[2022-01-31] MEDS: HYDROCHLOROTHIAZIDE 25 MG TABLET PO SCH (08:11)
[2022-01-31] MEDS: 0.9 % SODIUM CHLORIDE 10 ML SYRINGE IV SCH ×2 (08:37→22:19)
--- NOTE | 2022-01-31 08:57 | Operative Note ---
DATE OF OPERATION: 01/30/2022 PREOPERATIVE DIAGNOSES: Right foot severe deformity from Charcot arthropathy with resultant chronic wounds. POSTOPERATIVE DIAGNOSES: Right foot severe deformity from Charcot arthropathy with resultant chronic wounds. PROCEDURE PERFORMED: Right below-knee transtibial amputation. SURGEON: Giancarlo Hagan M.D. JR. SYSTEMS ADMINISTRATOR: Pawan Lee PA-C. The PA's assistance was required for the safe and efficient completion of the entire case. This provider's expertise and technical skill were required throughout the case. The PA assisted with preoperative coordination, intraoperative retraction, wound closure, dressing and splint application, as well as postoperative documentation and care coordination. ANESTHESIA: General. DRAINS: None. SPECIMEN: The removed foot and lower leg, which was discarded ESTIMATED BLOOD LOSS: 150 mL. COMPLICATIONS: None. POSTOPERATIVE CONDITION: Stable. INDICATIONS FOR SURGERY: This is a 56-year-old male who has had longstanding, severe foot deformity due to Charcot arthropathy. He has had multiple prior surgical procedures on his feet by Podiatry. He had similar problems on his left side, and we had earlier this year undergone a left below-knee amputation, which he was pleased with and wished to proceed on the right. FINDINGS AT SURGERY: He had severe deformity of the foot with a large ulcerative wound. Postprocedure showed satisfactory stump coverage. PROCEDURE IN DETAIL: The patient had been seen preoperatively and informed consent had been obtained after discussion of risks and benefits of surgery. Risks including, but not limited to, bleeding; infection; injury to nerves, blood vessels, other surrounding structures; anesthetic risks; painful stump or phantom pain; possible wound healing complications; possible need for further surgery or stump revision. He understood these risks and wished to proceed. Correct operative site was marked in preoperative holding, and then the patient was taken to the operating room. General anesthesia was induced. The right lower extremity was carefully prepped and draped in normal sterile fashion. A timeout was performed verifying patient name, operative site, and plan. The foot was covered with a stockinette and then a Coban. Esmarch was then used to exsanguinate the extremity, and tourniquet was inflated to 300 mmHg. We measured with a ruler 15 cm from the joint line to savanna our approximate bone cut. I then marked out our incision with a long posterior flap and a very short anterior flap, also with a keyhole medial and lateral to try and reduce the dog ears. We then used a scalpel through skin all the way around our incision and took this through the fascia. I then began cutting through the anterior compartment until I started getting close to the peroneal artery and nerve. We then dissected this bluntly with scissors. I tied off the vessel with a silk suture and then cut it and cauterized the end. We then injected 1% lidocaine around the peroneal nerve proximally and then using a Bovie with some traction on the nerve, I transected the peroneal nerve. I then continued down onto the interosseous membrane. A Alfonso elevator was used to dissect through posteriorly on the tibia and then oscillating saw with irrigation was used to make our tibial cut. I then dissected over the fibula, and approximately 1 to 2 cm proximal to the tibial cut, I made a slightly oblique fibular cut with an oscillating saw. We then used the cake knife to complete the amputation posteriorly, beveling out to our skin incision and then the distal foot and leg were passed off and placed in a red bag. I then identified the posterior neurovascular bundle. The tibial nerve was identified and dissected somewhat proximal. I then again injected 1% lidocaine around the nerve, and then pulling some traction, I used a Bovie to slowly cauterize through the nerve to resect it proximally. The vessel bundles were then dissected slightly and then silk ties were used to tie off the bundles with double ties. I then cauterized the distal ends as well. At this point, tourniquet was released. I did have to tie several ties of vessels that were bleeding using some cautery. Once I had vessel control, we then made a chamfer cut on the anterior tibia using the saw, making sure we did not violate the medullary canal. This was approximately a 45-degree bevel. I then made two drill holes just proximal to our bevel medial and lateral to the crest, exiting into the canal. We irrigated with IrriSept and then irrigated after a minute with saline. I then used #2 FiberWire and passed this through the tibial drill hole. We then did a Fontana-type stitch through the posterior compartment fascia and then back up through the other drill hole to myodese this up to the tibia and tied this over the anterior bone bridge. I placed a couple more [id number] stitches from the posterior fascia to the anterior on either side of our tibial myodesis to reinforce and then a #1 Vicryl was used to run the fascia from posterior to the anterior fascia. We then used 2-0 Monocryl for subcutaneous closure and mark for skin. Xeroform and a sterile dressing were applied. The leg was then placed in a knee immobilizer and the patient was awakened, extubated, and transferred to recovery in stable condition. GUICHO:tom Job ID: [id number] Doc ID: [id number] Giancarlo Hagan MD
[2022-01-31] MEDS ORDERED: FLU VACC QS2022-23(6MOS UP)/PF 60 MCG/0.5 ML SYRINGE IM ONE (10:00)
[2022-01-31] MEDS: LOSARTAN 50 MG TABLET PO SCH (22:17)
[2022-01-31] MEDS: SENNOSIDES 1 TABLET PO SCH (22:17)
[2022-01-31] MEDS: LORazepam 1 MG TABLET PO SCH (22:17)
[2022-02-01] MEDS: 0.9 % SODIUM CHLORIDE 1,000 ML IV SCH (01:02)
[2022-02-01] MEDS: oxyCODONE HCL 5 MG TABLET PO PRN ×2 (04:03→17:20)
--- NOTE | 2022-02-01 10:29 | Discharge Summary ---
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 Chief Complaint: [] Date of admission: 01/30/22 10:29 Discharge date: 02/01/22 Primary care physician: ANKUR Eugene Admitting clinician: Giancarlo Hagan Attending physician on admission: Giancarlo Hagan Attending physician on discharge: Giancarlo Hagan Discharging clinician: Giancarlo Hagan COURSE Hospital Course Hospital course: Patient underwent a right below knee amputation on 01/30/22. He was admitted postoperatively. Hospital course was uncomplicated as he awaited placement in a alf facility Discharge diagnosis: s/p right below knee amputation Reason for admission: below knee amputation Procedures: Right below knee amputation Complications: None Time Spent with Patient Time attestation: Total time spent providing and/or coordinating discharge services: Time spent: Less than 30 minutes Physical Examination Narrative Exam Narrative: awake and alert Exam Clean and dry: Yes DC Instructions-General Patient Instructions Dressing Care: May shower in 3 days and Silvasorb gel & gauze - change daily Discharge Plan Patient/Caregiver Discharge Instructions Activity: increase activity as tolerated and non-weight bearing Diet: Regular Diet Prescriptions: New oxycodone-acetaminophen 5-325 mg Tablet 1 - 2 tab PO Q4H PRN (Reason: pain) Qty: 60 0RF aspirin [aspirin] 325 MG tablet,delayed release (DR/EC) 81 mg PO BID 28 Days Qty: 14 0RF No Action losartan 100 MG tablet 100 mg PO HS lorazepam 1 MG tablet 1 mg PO HS oxycodone 5 mg Tablet 10 mg PO Q6HP PRN (Reason: Per Pain Protocol) Qty: 10 0RF bisoprolol-hydrochlorothiazide 10-6.25 mg tablet 1 tab PO DAILY promethazine 12.5 mg Tablet 12.5 mg PO TIDP PRN (Reason: N/V) fluoxetine 20 mg Tablet 20 mg PO QDAY Follow Up Plan Follow up with: Giancarlo Hagan MD [Physician] - 02/18/22 1:00 pm Patient Disposition: Xfer SNF I certify that the patient requires SNF services: Yes Discharge Orders: Discharge Order (Routine); Ordered 02/01/22 Ordered By: Giancarlo Hagan Pending Pending Pending: Resuscitation Status Resuscitate (Full Code) Diet Consistent Carbohydrate Diet Start Deirdre Jan 31 1541 Bisoprolol Fumarate (Bisoprolol 5 Mg Tablet) 10 mg PO DAILY [facility] Last Admin: 01/31/22 08:11 Dose: 10 mg Documented By: VALERI Docusate Sodium (Docusate Sodium 100 Mg Capsule) 100 mg PO BID [facility] Last Admin: 01/31/22 22:17 Dose: 100 mg Documented By: Admin: 01/31/22 08:03 Dose: 100 mg Documented By: Admin: 01/30/22 21:03 Dose: 100 mg Documented By: WILLIAM Fluoxetine HCl (Fluoxetine Hcl 20 Mg Capsule) 20 mg PO DAILY [facility] Last Admin: 01/31/22 08:11 Dose: 20 mg Documented By: VALERI Hydrochlorothiazide (Hydrochlorothiazide 25 Mg Tablet) 6.25 mg PO DAILY [facility] Last Admin: 01/31/22 08:11 Dose: 6.25 mg Documented By: VALERI Lorazepam (Lorazepam 1 Mg Tablet) 1 mg PO HS [facility] Last Admin: 01/31/22 22:17 Dose: 1 mg Documented By: Admin: 01/30/22 21:03 Dose: 1 mg Documented By: WILLIAM Losartan Potassium (Losartan 50 Mg Tablet) 100 mg PO HS [facility] Last Admin: 01/31/22 22:17 Dose: 100 mg Documented By: Admin: 01/30/22 21:09 Dose: 100 mg Documented By: WILLIAM Morphine Sulfate (Morphine 4 Mg/Ml Vial) 0 mg IV Q1HP PRN; Protocol PRN Reason: Per Pain Protocol Last Admin: 01/31/22 18:02 Dose: 4 mg Documented By: Admin: 01/31/22 15:33 Dose: 4 mg Documented By: Admin: 01/31/22 11:55 Dose: 4 mg Documented By: Admin: 01/31/22 08:58 Dose: 4 mg Documented By: Admin: 01/31/22 03:18 Dose: 5 mg Documented By: Admin: 01/30/22 23:45 Dose: 4 mg Documented By: Admin: 01/30/22 20:58 Dose: 4 mg Documented By: Admin: 01/30/22 17:51 Dose: 4 mg Documented By: [email or web address] Oxycodone HCl (Oxycodone Hcl 5 Mg Tablet) 0 mg PO Q4HP PRN; Protocol PRN Reason: Per Pain Protocol Last Admin: 02/01/22 04:03 Dose: 10 mg Documented By: Admin: 01/31/22 22:18 Dose: 10 mg Documented By: Admin: 01/31/22 18:03 Dose: 10 mg Documented By: Admin: 01/31/22 11:55 Dose: 10 mg Documented By: Admin: 01/31/22 07:10 Dose: 10 mg Documented By: Admin: 01/31/22 01:36 Dose: 10 mg Documented By: WILLIAM Senna (Sennosides 1 Tablet) 2 tab PO HS [facility] Last Admin: 01/31/22 22:17 Dose: 2 tab Documented By: Admin: 01/30/22 21:02 Dose: 2 tab Documented By: WILLIAM Sodium Chloride (0.9 % Sodium Chloride 10 Ml Syringe) 10 ml IV Q12 [facility] Last Admin: 01/31/22 22:19 Dose: 10 ml Documented By: Admin: 01/31/22 08:37 Dose: Not Given Documented By: Admin: 01/30/22 21:03 Dose: Not Given Documented By: WILLIAM Shift Summary 02/01/22 07:01 Shift Summary by Tisha Nicole Primary Diagnosis: Planned RBKA Registration Status: 01/30 - M/S IP Date of Surgery (if applicable): 01/30 RBKA Pertinent Medical Dx/Issue(s): 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 LBKA in past, neuropathy, phantom pain, HTN, marijuana use, anxiety, shingles. Vital Signs with Trends: HTN, otherwise VSS on RA. Neuro : A&OX4 Ambulation status : Uses w/c at home. Has not been out of bed. Pt aware he needs to turn to keep from developing PU on bottom. Pt able to use pillows, raising & lowering HOB to shift weight. Diet : CC. Pt not diabetic, no accu checks ordered. Pain management (acute vs. chronic): Oxy & Ativan given @ HS w/ good effect, slept well. Last oxy @ 0400. Lab/Rad (abnormals, trends): Urinary output greater than 30mL/hr? Yes, per urinal. Date of last BM: None this shift. Lines/Tubes: SL L inner wrist Skin / Wound : Patel to R stump CDI. Wound lat LLE open to air. Recommendations/questions for MD: Discharge Plan (needs, disposition, etc): To go to SNF for rehab. Initialized on 02/01/22 07:01 - END OF NOTE
[2022-02-01] MEDS: DOCUSATE SODIUM 100 MG CAPSULE PO SCH ×2 (11:41→21:57)
[2022-02-01] MEDS: HYDROCHLOROTHIAZIDE 25 MG TABLET PO SCH (11:41)
[2022-02-01] MEDS: BISOPROLOL 5 MG TABLET PO SCH (11:42)
[2022-02-01] MEDS: FLUoxetine HCL 20 MG CAPSULE PO SCH (11:42)
[2022-02-01] MEDS: 0.9 % SODIUM CHLORIDE 10 ML SYRINGE IV SCH ×2 (11:48→21:57)
[2022-02-01] MEDS: morphine 4 MG/ML VIAL IV PRN ×2 (11:48→20:16)
[2022-02-01] MEDS: GABAPENTIN 300 MG CAPSULE PO SCH ×2 (15:41→21:57)
[2022-02-01] MEDS: LORazepam 1 MG TABLET PO SCH (21:57)
[2022-02-01] MEDS: LOSARTAN 50 MG TABLET PO SCH (21:57)
[2022-02-01] MEDS: SENNOSIDES 1 TABLET PO SCH (21:57)
[2022-02-02] MEDS: GABAPENTIN 300 MG CAPSULE PO SCH ×3 (05:22→20:41)
[2022-02-02] MEDS: oxyCODONE HCL 5 MG TABLET PO PRN ×4 (05:53→20:39)
[2022-02-02] MEDS: HYDROCHLOROTHIAZIDE 25 MG TABLET PO SCH (10:07)
[2022-02-02] MEDS: BISOPROLOL 5 MG TABLET PO SCH (10:07)
[2022-02-02] MEDS: FLUoxetine HCL 20 MG CAPSULE PO SCH (10:08)
[2022-02-02] MEDS: DOCUSATE SODIUM 100 MG CAPSULE PO SCH ×2 (10:08→20:41)
[2022-02-02] MEDS: 0.9 % SODIUM CHLORIDE 10 ML SYRINGE IV SCH ×2 (10:08→20:41)
--- NOTE | 2022-02-02 10:13 | Orthopedic Progress Note ---
SUBJECTIVE Subjective Patient information: Note initiated : 02/02/22 at 10:11 am Service Date, if different from initiated Date: [] Patient: Naga Simeon 56 y/o M admitted on 01/30/22 for Right Below Knee Amputation Thru Tibia and Fibula. Chief Complaint: [] Principal diagnosis: Right BKA Interval history: Patient is doing well today. He is wearing his knee immobilizer and working on his exercises. Has some pain but overall okay. Denies any CP, ANDERSON, Fever or any other acute symptoms. Constitutional Vitals: Vital Signs Temp Pulse Resp BP Pulse Ox O2 Del Method O2 Flow Rate 98.1 F 62 20 132/80 95 0 02/02/22 08:00 02/02/22 03:20 02/02/22 08:00 02/02/22 08:00 02/02/22 08:00 02/02/22 08:00 01/30/22 17:13 Period Temp Pulse Resp BP Sys/Hurtado Pulse Ox O2 Del Method O2 Flow Rate Last 24 Hr 96.9 F-99 F 62-65 16-20 128-145/79-84 94-97 Room Air-Room Air Intake and Output 02/01/22 02/02/22 02/02/22 21:59 05:59 13:59 Intake Total 360 800 Output Total 600 300 225 Balance -240 -300 575 Weight 216 lb Intake & Output: Intake & Output 02/01/22 02/02/22 02/02/22 21:59 05:59 13:59 Intake Total 360 800 Output Total 600 300 225 Balance -240 -300 575 Weight 216 lb Intake: Oral 360 800 Output: Void Amount 600 300 225 Other: Urine Appearance Clear Clear Clear Urine Color Yellow Dark Yellow Dark Yellow Urine Odor Normal Additional findings Additional findings: Exam of RLE reveals dressings c/d/i, immobilizer in place OBJ DATA Labs CBC & Chem 7: 01/30/22 12:30 01/30/22 12:30 Labs: Abnormal Lab Results 01/30/22 01/30/22 01/30/22 12:34 12:30 12:30 WBC 4.3 L RBC 4.22 L Hgb 13.3 L Hct 38.2 L POC Hct 39.0 L POC Chloride 95 L POC BUN < 3 L BUN 3 L Creatinine 0.5 L POC Creatinine 0.4 L POC Glucose 107 H POC WB Ioniz Calcium 1.04 L Meds: Medications Bisacodyl (Bisacodyl 10 Mg Supp.Rect) 10 mg OH Q2-3DAYS PRN PRN Reason: Constipation Bisoprolol Fumarate (Bisoprolol 5 Mg Tablet) 10 mg PO DAILY [facility]S AT [facility] Last Admin: 02/02/22 10:07 Dose: 10 mg Docusate Sodium (Docusate Sodium 100 Mg Capsule) 100 mg PO BID [facility] 234 BEDS AT [facility] Last Admin: 02/02/22 10:08 Dose: 100 mg Fluoxetine HCl (Fluoxetine Hcl 20 Mg Capsule) 20 mg PO DAILY [facility] 234 BEDS AT [facility] Last Admin: 02/02/22 10:08 Dose: 20 mg Gabapentin (Gabapentin 300 Mg Capsule) 300 mg PO Q8 [facility] 234 BEDS AT [facility] Last Admin: 02/02/22 05:22 Dose: 300 mg Hydrochlorothiazide (Hydrochlorothiazide 25 Mg Tablet) 6.25 mg PO DAILY [facility] 234 BEDS AT [facility] Last Admin: 02/02/22 10:07 Dose: 6.25 mg Lorazepam (Lorazepam 1 Mg Tablet) 1 mg PO [facility] Last Admin: 02/01/22 21:57 Dose: 1 mg Losartan Potassium (Losartan 50 Mg Tablet) 100 mg PO [facility] Last Admin: 02/01/22 21:57 Dose: 100 mg Magnesium Hydroxide (Magnesium Hydroxide 30 Ml Oral.Susp) 30 ml PO BIDP PRN PRN Reason: Constipation Morphine Sulfate (Morphine 4 Mg/Ml Vial) 0 mg IV Q1HP PRN; Protocol PRN Reason: Per Pain Protocol Last Admin: 02/01/22 20:16 Dose: 4 mg Oxycodone HCl (Oxycodone Hcl 5 Mg Tablet) 0 mg PO Q4HP PRN; Protocol PRN Reason: Per Pain Protocol Last Admin: 02/02/22 10:08 Dose: 10 mg Polyethylene Glycol (Polyethylene Glycol 3350 17 Gm Packet) 17 gm PO DAILYP PRN PRN Reason: Constipation Promethazine HCl (Promethazine 25 Mg Tablet) 12.5 mg PO TIDP PRN PRN Reason: Nausea And Vomiting Last Admin: 02/01/22 17:21 Dose: 12.5 mg Senna (Sennosides 1 Tablet) 2 tab PO HS [facility]S [facility] 234 BEDS AT [facility] Last Admin: 02/01/22 21:57 Dose: 2 tab Sodium Biphosphate/Sodium Phosphate (Fleets Adult Enema) 1 dose [place] Q3-4DAYS PRN PRN Reason: Constipation Sodium Chloride (0.9 % Sodium Chloride 10 Ml Syringe) 10 ml IV Q12 [facility] Last Admin: 02/02/22 10:08 Dose: 10 ml A/P Assessment and plan (1) History of right below knee amputation: Status: Acute Comment: bandages c/d/i. wear knee immobilizer, may remove for ROM. mobilize with PT. discharge to snf in 1-2 days. Plan Plan for discharge to SNF in next 1-2 days once placement is found PT in meantime dressings changes daily, replace knee immobilizer Call [facility] friday for rigid removable brace. Time Spent With Patient Time: Total time spent is greater than 50% in coordination of care (as documented) at patient's floor/unit and/or counseling patient:
[2022-02-02] MEDS: LOSARTAN 50 MG TABLET PO SCH (20:41)
[2022-02-02] MEDS: SENNOSIDES 1 TABLET PO SCH (20:41)
[2022-02-02] MEDS: LORazepam 1 MG TABLET PO SCH (20:41)
[2022-02-03] MEDS: GABAPENTIN 300 MG CAPSULE PO SCH ×3 (06:05→21:50)
[2022-02-03] MEDS: oxyCODONE HCL 5 MG TABLET PO PRN ×4 (06:05→21:50)
[2022-02-03] MEDS: 0.9 % SODIUM CHLORIDE 10 ML SYRINGE IV SCH ×2 (08:25→20:47)
[2022-02-03] MEDS: BISOPROLOL 5 MG TABLET PO SCH (08:31)
[2022-02-03] MEDS: FLUoxetine HCL 20 MG CAPSULE PO SCH (08:31)
[2022-02-03] MEDS: HYDROCHLOROTHIAZIDE 25 MG TABLET PO SCH (08:31)
[2022-02-03] MEDS: DOCUSATE SODIUM 100 MG CAPSULE PO SCH ×2 (08:32→20:47)
--- NOTE | 2022-02-03 09:25 | Orthopedic Progress Note ---
SUBJECTIVE Subjective Patient information: Note initiated : 02/03/22 at 9:23 am Service Date, if different from initiated Date: [] Patient: Naga Simeon 56 y/o M admitted on 01/30/22 for Right Below Knee Amputation Thru Tibia and Fibula. Doing well today and maintaining his exercises, dressing changes daily going well and states incisions are looking good. Denies any redness, fever, drainage, or any other acute symptoms. Chief Complaint: [] Principal diagnosis: Right BKA Constitutional Vitals: Vital Signs Temp Pulse Resp BP Pulse Ox O2 Del Method O2 Flow Rate 97.3 F 59 L 16 112/74 96 0 02/03/22 07:14 02/03/22 07:14 02/03/22 07:14 02/03/22 07:14 02/03/22 07:14 02/03/22 07:14 01/30/22 17:13 Period Temp Pulse Resp BP Sys/Hurtado Pulse Ox O2 Del Method O2 Flow Rate Last 24 Hr 97.3 F-99.1 F 59-78 - 112-142/74-84 96-98 Room Air-Room Air Intake and Output 02/02/22 02/03/22 02/03/22 21:59 05:59 13:59 Intake Total 640 400 Output Total 850 200 175 Balance -210 -200 225 Intake & Output: Intake & Output 02/02/22 02/03/22 02/03/22 21:59 05:59 13:59 Intake Total 640 400 Output Total 850 200 175 Balance -210 -200 225 Intake: Oral 640 400 Output: Void Amount 850 200 175 Other: Urine Appearance Clear Clear Clear Urine Color Yellow Dark Yellow Yellow Urine Odor Normal Additional findings Additional findings: Dressings C/D/I OBJ DATA Labs CBC & Chem 7: 01/30/22 12:30 01/30/22 12:30 Meds: Medications Bisacodyl (Bisacodyl 10 Mg Supp.Rect) 10 mg MD Q2-3DAYS PRN PRN Reason: Constipation Bisoprolol Fumarate (Bisoprolol 5 Mg Tablet) 10 mg PO DAILY [facility] Last Admin: 02/03/22 08:31 Dose: 10 mg Docusate Sodium (Docusate Sodium 100 Mg Capsule) 100 mg PO BID [facility] Last Admin: 02/03/22 08:32 Dose: 100 mg Fluoxetine HCl (Fluoxetine Hcl 20 Mg Capsule) 20 mg PO DAILY [facility] Last Admin: 02/03/22 08:31 Dose: 20 mg Gabapentin (Gabapentin 300 Mg Capsule) 300 mg PO Q8 [facility] Last Admin: 02/03/22 06:05 Dose: 300 mg Hydrochlorothiazide (Hydrochlorothiazide 25 Mg Tablet) 6.25 mg PO DAILY [facility] Last Admin: 02/03/22 08:31 Dose: 6.25 mg Lorazepam (Lorazepam 1 Mg Tablet) 1 mg PO [facility] Last Admin: 02/02/22 20:41 Dose: 1 mg Losartan Potassium (Losartan 50 Mg Tablet) 100 mg PO [facility] Last Admin: 02/02/22 20:41 Dose: 100 mg Magnesium Hydroxide (Magnesium Hydroxide 30 Ml Oral.Susp) 30 ml PO BIDP PRN PRN Reason: Constipation Morphine Sulfate (Morphine 4 Mg/Ml Vial) 0 mg IV Q1HP PRN; Protocol PRN Reason: Per Pain Protocol Last Admin: 02/01/22 20:16 Dose: 4 mg Oxycodone HCl (Oxycodone Hcl 5 Mg Tablet) 0 mg PO Q4HP PRN; Protocol PRN Reason: Per Pain Protocol Last Admin: 02/03/22 06:05 Dose: 10 mg Polyethylene Glycol (Polyethylene Glycol 3350 17 Gm Packet) 17 gm PO DAILYP PRN PRN Reason: Constipation Last Admin: 02/03/22 06:05 Dose: 17 gm Promethazine HCl (Promethazine 25 Mg Tablet) 12.5 mg PO TIDP PRN PRN Reason: Nausea And Vomiting Last Admin: 02/01/22 17:21 Dose: 12.5 mg Senna (Sennosides 1 Tablet) 2 tab PO [facility] Last Admin: 02/02/22 20:41 Dose: 2 tab Sodium Biphosphate/Sodium Phosphate (Fleets Adult Enema) 1 dose MD Q3-4DAYS PRN PRN Reason: Constipation Sodium Chloride (0.9 % Sodium Chloride 10 Ml Syringe) 10 ml IV Q12 [facility] Last Admin: 02/03/22 08:25 Dose: Not Given A/P Assessment and plan (1) History of right below knee amputation: Status: Acute Comment: bandages c/d/i. wear knee immobilizer, may remove for ROM. mobilize with PT. discharge to snf in 1-2 days. Plan POD 4 s/p right BKA Continue monitoring and waiting SNF placement Call [facility] tomorrow to notify need for rigid removable brace, prescription signed and in chart contact Dr. Donis for any questions. Time Spent With Patient Time: Total time spent is greater than 50% in coordination of care (as documented) at patient's floor/unit and/or counseling patient: Total time spent with greater than 50% in coordination of care (as documented) at patient's floor/unit and/or counseling patient:: less than 15 minutes
[2022-02-03] MEDS: SENNOSIDES 1 TABLET PO SCH (20:47)
[2022-02-03] MEDS: LORazepam 1 MG TABLET PO SCH (20:47)
[2022-02-03] MEDS: LOSARTAN 50 MG TABLET PO SCH (20:47)
[2022-02-04] MEDS: GABAPENTIN 300 MG CAPSULE PO SCH (05:33)
[2022-02-04] MEDS: oxyCODONE HCL 5 MG TABLET PO PRN ×2 (05:33→10:31)
[2022-02-04] MEDS: HYDROCHLOROTHIAZIDE 25 MG TABLET PO SCH (08:47)
[2022-02-04] MEDS: BISOPROLOL 5 MG TABLET PO SCH (08:47)
[2022-02-04] MEDS: DOCUSATE SODIUM 100 MG CAPSULE PO SCH (08:47)
[2022-02-04] MEDS: FLUoxetine HCL 20 MG CAPSULE PO SCH (08:48)
[2022-02-04] MEDS: 0.9 % SODIUM CHLORIDE 10 ML SYRINGE IV SCH (08:51)
== END 2022-02-04 12:14 | DRG 476 ==
LOC: MEDSUR 10:29
PROVIDERS: ADMIT Orthopaedic Surgery; ATTEND Orthopaedic Surgery